=== PATIENT | male | born 1970 | race Two or more races ===

== ENCOUNTER 2019-09-15 10:10 | Emergency (ER) | payer MEDICARE, MEDICAID ==
[~2019-09-15] VITALS: Ht 185.4 cm; Wt 97.5 kg
[2019-09-15 10:41] VITALS: BP 108/70
== END 2019-09-15 12:29 | disposition left against medical advice (07) ==
LOC: ER 10:10
DX: R51 Headache (principal); Z53.21 Procedure and treatment not carried out due to patient leaving prior to being seen by health care provider
CPT/HCPCS: 93005

== ENCOUNTER 2020-01-25 02:01 | Emergency (ER) | payer MEDICARE, MEDICAID ==
[~2020-01-25] VITALS: Ht 185.4 cm; Wt 99.8 kg
[2020-01-25] MEDS ORDERED: LIDOCAINE 1% HCL (LOCAL ANESTH.) INJ 20ML MDV IJ ONE (04:45)
[2020-01-25] MEDS ORDERED: LIDOCAINE 1% HCL (LOCAL ANESTH.) INJ 20ML MDV ID ONE (05:00)
[2020-01-25 06:20] VITALS: BP 150/97
== END 2020-01-25 06:30 | disposition home or self-care (01) ==
LOC: ER 02:01 → EDBD 02:01 → ER 06:30
DX: S01.81XA Laceration without foreign body of other part of head, initial encounter (principal); F10.10 Alcohol abuse, uncomplicated; W01.0XXA Fall on same level from slipping, tripping and stumbling without subsequent striking against object, initial encounter; Y93.89 Activity, other specified; Y92.89 Other specified places as the place of occurrence of the external cause; Y99.8 Other external cause status
CPT/HCPCS: 12053; 70450; 72125; 99285; J2001

== ENCOUNTER 2020-02-08 11:39 | Inpatient (IN) | payer MEDICARE, MEDICAID ==
[~2020-02-08] VITALS: Ht 185.4 cm; Wt 90.4 kg
[2020-02-08] MEDS ORDERED: ETOMIDATE (2MG/ML) 20ML VIAL IV ONE ×3 (15:00→16:00)
[2020-02-08 16:49] LABS: Basophils # (auto) 0 10 ^3/uL (0-0.2); Eosinophils # (auto) 0 10 ^3/uL (0-0.8); Neutrophils # (auto) 4.9 10 ^3/uL (1.6-8.6); White Blood Cell 5.6 10^3/uL (4.4-10.8)
[2020-02-08 16:51] LABS: Basophils % (auto) 0.4 % (0.0-2.0); Hematocrit 37.9 % (41.0-53.0); Hemoglobin 12.6 g/dL (13.5-17.5); Lymphocytes # (auto) 0.2 10 ^3/uL (0.4-5.4); Lymphocytes % (auto) 4.4 % (10.0-50.0); Mean Corpuscular Hemoglobin 34.1 pg (28.0-32.0); Mean Corpuscular Hgb Conc. 33.2 g/dL (32.0-36.0); Mean Corpuscular Volume 102.5 fL (80.0-100.0); Monocytes # (auto) 0.4 10 ^3/uL (0-1.3); Monocytes % (auto) 7.9 % (0.0-12.0); Neutrophils % (auto) 87.3 % (37.0-80.0); Platelet Count (auto) 161 10^3/uL (140-450); Red Cell Distribution Width 15.3 % (11.8-14.3)
[2020-02-08 17:09] LABS: Albumin 3.2 g/dL (3.4-5.0); Calcium 8.5 mg/dL (8.5-10.1); Potassium 3.7 mmol/L (3.5-5.1)
[2020-02-08 17:13] LABS: BUN/Creatinine Ratio 8.6; Bilirubin, Total 0.7 mg/dL (0.2-1.0); Total Protein 7.1 g/dL (6.4-8.2)
[2020-02-08 17:27] LABS: INR 0.91 (0.9-1.15); Partial Thromboplastin Time 26.5 sec (23.64-32.05)
[2020-02-08] MEDS ORDERED: NITROGLYCERIN 0.4 MG SL TAB SL PRN ×3 (18:30→21:00)
[2020-02-08] MEDS ORDERED: MORPHINE SULF INJ 2 MG/ML SYRINGE 1ML IV PRN ×2 (18:30→21:00)
[2020-02-08] MEDS ORDERED: MORPHINE SULFATE 4 MG/ML SYR/VIAL IV ONE (18:45)
[2020-02-08] MEDS ORDERED: ONDANSETRON HCL 4 MG/2 ML VIAL IV ONE (18:45)
[2020-02-08] MEDS ORDERED: LORazepam 2MG/ML-1ML VIAL IV ONE (19:00)
[2020-02-08] MEDS ORDERED: MVI in SODIUM CHLORIDE 0.9% 1,010 ML IV ONE (20:53)
[2020-02-08] MEDS ORDERED: ATORVASTATIN 20 MG TAB PO ONE (21:00)
[2020-02-08] MEDS ORDERED: LORazepam 2MG/ML-1ML VIAL IV PRN (21:00)
[2020-02-08] MEDS ORDERED: DOCUSATE SOD 100 MG CAP PO PRN (21:00)
[2020-02-08] MEDS ORDERED: ALUM & MAG HYDROX-SIMETH LIQ(MAALOX) 30 ML PO PRN (21:00)
[2020-02-08] MEDS ORDERED: ONDANSETRON HCL 4 MG/2 ML VIAL IV PRN (21:00)
[2020-02-08] MEDS ORDERED: THIAMINE HCL 100 MG TAB PO ONE (21:00)
[2020-02-08] MEDS ORDERED: THIAMINE 100mg/ml INJ (200mg/2ml VIAL) IV ONE (21:00)
[2020-02-08] MEDS ORDERED: FOLIC ACID 1 MG TAB PO ONE (21:00)
[2020-02-08] MEDS ORDERED: HYDROcodone-ACET 5/325MG TAB PO PRN (21:00)
[2020-02-08] MEDS ORDERED: MULTIPLE VITAMIN TAB PO ONE (21:00)
[2020-02-08] MEDS ORDERED: ACETAMINOPHEN 325 MG TAB PO PRN ×2 (21:00)
[2020-02-08 21:30] LABS: Magnesium 2.2 mg/dL (1.6-2.6)
--- NOTE | 2020-02-08 21:30 | NUR ---
PATIENT ARRIVED TO UNIT AT THIS TIME FROM THE EMERGENCY ROOM VIA WHEELCHAIR. HE IS AO X4 AND AMBULATORY WITH HIS CANE HE BROUGHT FROM HOME WELL A LEG BRACE. HE IS ON ROOM AIR WITH NO COMPLAINTS OF SHORTNESS OF BREATH. HE DOES COMPLAIN OF MILD PAIN AT A 4/10 AT THE MOMENT TO HIS LEFT SHOULDER, BACK AND RIGHT LEG. BED IS LOCKED IN THE LOWEST POSITION WITH SIDE RAILS UP X2. WILL CONTINUE TO MONITOR.
[2020-02-08 21:35] LABS: Cholesterol 206 mg/dL (< 200); HDL Cholesterol 124 mg/dL (40-59); LDL Cholesterol 68 mg/dL (< 100); Triglycerides 58 mg/dL (< 150)
--- NOTE | 2020-02-08 21:35 | NUR ---
UA SENT AT THIS TIME.
[2020-02-08] MEDS: THIAMINE IV ONE (21:45)
[2020-02-08] MEDS: SODIUM CHL 0.9% IV ONE (21:45)
[2020-02-08 22:00] VITALS: BP 148/99
[2020-02-08] MEDS ORDERED: ATORVASTATIN 20 MG TAB PO SCH (22:00)
[2020-02-08] MEDS ORDERED: QUEtiapine FUMARATE 100 MG TAB PO SCH (22:00)
[2020-02-08] MEDS ORDERED: traZODone HCL 50 MG TAB PO SCH (22:00)
[2020-02-08] MEDS: METOPROLOL TARTRATE 25 MG TAB PO SCH (22:26)
[2020-02-08] MEDS: GABAPENTIN 300 MG CAP PO SCH (22:27)
[2020-02-08] MEDS: LORazepam 0.5 MG TAB PO SCH (22:27)
[2020-02-08] MEDS: MAGNESIUM SULFATE 1GM/100ML 100 ML IV SCH ×2 (22:28→23:50)
[2020-02-08] MEDS: SODIUM CHLOR 0.9% PF (SALINE LOCK) 10ML VIAL/SYR IV SCH (22:28)
[2020-02-08] MEDS: SODIUM CHLORIDE 0.9% 1,000 ML IV SCH (22:29)
[2020-02-08 22:31] LABS: Urine Bacteria NONE SEEN /hpf (None Seen); Urine Blood Negative /uL (Negative); Urine Mucus FEW (None Seen); Urine Specific Gravity 1.019 (1.001-1.035); Urine WBC <1 /hpf (0 - 3)
[2020-02-08 22:46] LABS: Amphetamine Screen, Urine NEGATIVE (NEGATIVE); Barbiturate Scree,Urine NEGATIVE (NEGATIVE); Benzodiazephine Screen, Urine NEGATIVE (NEGATIVE); Cannabinoid Screen, Urine NEGATIVE (NEGATIVE); Cocaine Screen, Urine NEGATIVE (NEGATIVE); Opiate Scree,Urine POSITIVE (NEGATIVE); Phencyclidine Screen, Urine NEGATIVE (NEGATIVE)
[2020-02-08] MEDS: MORPHINE SULF INJ 2 MG/ML SYRINGE 1ML IV PRN (22:50)
--- NOTE | 2020-02-08 23:40 | NUR ---
COVID SWAB TAKEN TO LAB AT THIS TIME.
[2020-02-09] MEDS ORDERED: TRAZ150T79 PO (00:14)
[2020-02-09] MEDS ORDERED: MORP1CAP30 PO (00:14)
[2020-02-09] MEDS ORDERED: GABA-339 PO (00:14)
[2020-02-09] MEDS ORDERED: BACL10TA PO (00:14)
[2020-02-09] MEDS ORDERED: OXY5T PO (00:14)
[2020-02-09] MEDS ORDERED: QUET50TA PO (00:14)
[2020-02-09] MEDS: LORazepam 0.5 MG TAB PO SCH ×3 (01:35→09:00)
[2020-02-09] MEDS: DOXYCYCLINE 100MG/250ML 250 ML IV SCH ×2 (01:35→09:00)
[2020-02-09] MEDS: MORPHINE SULF INJ 2 MG/ML SYRINGE 1ML IV PRN ×3 (03:00→14:26)
[2020-02-09] MEDS: THIAMINE IV ONE (03:50)
[2020-02-09] MEDS: SODIUM CHL 0.9% IV ONE (03:50)
[2020-02-09 05:00] VITALS: BP 140/97
--- NOTE | 2020-02-09 05:16 | NUR ---
PATIENT OFF UNIT TO SMOKE. SIGNED FORM IN CHART. PATIENT NOTIFIED OF 30 MINUTE MAXIMUM LIMIT.
--- NOTE | 2020-02-09 05:24 | NUR ---
PATIENT BACK ON UNIT.
[2020-02-09] MEDS: SODIUM CHLOR 0.9% PF (SALINE LOCK) 10ML VIAL/SYR IV SCH ×2 (05:42→14:25)
[2020-02-09] MEDS: GABAPENTIN 300 MG CAP PO SCH ×2 (05:43→14:25)
[2020-02-09 06:02] LABS: Basophils # (auto) 0 10 ^3/uL (0-0.2); Basophils % (auto) 0.4 % (0.0-2.0); Eosinophils # (auto) 0 10 ^3/uL (0-0.8); Eosinophils % (auto) 0.7 % (0.0-7.0); Lymphocytes # (auto) 0.6 10 ^3/uL (0.4-5.4); Monocytes # (auto) 0.9 10 ^3/uL (0-1.3); Red Cell Distribution Width 15.4 % (11.8-14.3)
[2020-02-09 06:05] LABS: Hematocrit 35.2 % (41.0-53.0); Lymphocytes % (auto) 9.1 % (10.0-50.0); Mean Corpuscular Hemoglobin 34.4 pg (28.0-32.0); Mean Corpuscular Hgb Conc. 34.1 g/dL (32.0-36.0); Mean Corpuscular Volume 100.7 fL (80.0-100.0); Monocytes % (auto) 14.7 % (0.0-12.0); Neutrophils # (auto) 4.7 10 ^3/uL (1.6-8.6); Neutrophils % (auto) 75.1 % (37.0-80.0); Platelet Count (auto) 171 10^3/uL (140-450); Red Blood Cells 3.49 10^6/uL (4.5-5.90); White Blood Cell 6.2 10^3/uL (4.4-10.8)
[2020-02-09 06:16] LABS: INR 0.93 (0.9-1.15); Partial Thromboplastin Time 26.9 sec (23.64-32.05)
[2020-02-09 06:23] LABS: Chloride 101 mmol/L (98-107); Potassium 3.5 mmol/L (3.5-5.1); Sodium 133 mmol/L (136-145)
[2020-02-09 06:40] LABS: Alanine Aminotransferase 67 U/L (16-61); Albumin 3.1 g/dL (3.4-5.0); Alkaline Phosphatase 120 U/L (45-117); Anion Gap 6 (5-15); Aspartate Aminotransferase 100 U/L (15-37); BUN/Creatinine Ratio 14.8; Bilirubin, Total 0.8 mg/dL (0.2-1.0); Blood Urea Nitrogen 8 mg/dL (7-18); Calcium 8.5 mg/dL (8.5-10.1); Carbon Dioxide 26 mmol/L (21-32); GFR African American 206 mL/min; GFR Non-African American 170 mL/min; Glucose 108 mg/dL (74-106); Magnesium 2.6 mg/dL (1.6-2.6); Phosphorus 2.6 mg/dL (2.5-4.90); Total Protein 6.9 g/dL (6.4-8.2)
--- NOTE | 2020-02-09 07:01 | NUR ---
PATIENT OFF UNIT TO SMOKE.
--- NOTE | 2020-02-09 07:30 | NUR ---
Opening Shift Note Assumed care of patient, pt awake and alert laying down in bed. Pt is on room air with even and unlabored respirations. No S/S of distress/SOB at this time. Pt C/o pain 10/10 in back and left arm. Will give ordered pain medications. bed is in lowest position, wheels are locked, side rails up x2, and call light is within reach. Instructed on POC and to call for assist PRN, will continue to monitor for changes Q1hr and PRN.
--- NOTE | 2020-02-09 08:35 | NUR ---
PT OFF UNIT FOR PROCEDURE OT OFF UNIT FOR PROCEDURE. PT TRANSPORTED BY BED TO PRE-OP. PT IS ALERT AND AWAKE WITH EVEN AND UNLABORED RESPIRATIONS. NO S/S OF DISTRESS/SOB NOTED AT TIME OF DEPARTURE.
[2020-02-09 09:00] VITALS: BP 140/95
[2020-02-09] MEDS ORDERED: MIDAZOLAM HCL 1MG/1ML-2 ML VIAL ONE (09:02)
[2020-02-09] MEDS ORDERED: fentaNYL CITRATE 5 ML ONE (09:02)
[2020-02-09] MEDS ORDERED: GLYCOPYRROLATE 0.2 MG/ML 1ML VIAL ONE ×2 (09:03→10:30)
[2020-02-09] MEDS ORDERED: ROCURONIUM 10MG/ML 10ML VIAL IV ONE (09:03)
[2020-02-09] MEDS ORDERED: PROPOFOL 10 MG/ML 20 ML IV ONE (09:03)
[2020-02-09] MEDS ORDERED: ePHEDrine SULFATE 50 MG/ML AMP ONE (09:03)
[2020-02-09] MEDS ORDERED: DexAMETHasone SOD PHOS 10MG/1ML VIAL INJ ONE (09:03)
[2020-02-09] MEDS ORDERED: LIDOCAINE 2% (LOCAL ANESTH.) PF 5ml SDV ONE (09:03)
[2020-02-09] MEDS ORDERED: ONDANSETRON HCL 4 MG/2 ML VIAL ONE (09:03)
[2020-02-09] MEDS ORDERED: ROPIVACAINE 0.5% (5MG/ML) 20ML AMPULE IJ ONE (09:38)
[2020-02-09] MEDS ORDERED: PANTOPRAZOLE 40 MG TAB PO SCH (10:00)
[2020-02-09] MEDS ORDERED: FOLIC ACID 1 MG TAB PO SCH (10:00)
[2020-02-09] MEDS ORDERED: THIAMINE HCL 100 MG TAB PO SCH (10:00)
[2020-02-09] MEDS ORDERED: MULTIPLE VITAMIN TAB PO SCH (10:00)
[2020-02-09] MEDS ORDERED: ENOXAPARIN SOD 40 MG/0.4 ML SYRINGE SC SCH (10:00)
[2020-02-09] MEDS ORDERED: CITALOPRAM HYDROBR 20 MG TAB PO SCH (10:00)
[2020-02-09] MEDS ORDERED: NEOSTIGMINE 1 MG/ML INJ (10mg/10ML VIAL) ONE (10:30)
--- NOTE | 2020-02-09 10:30 | NUR ---
PT BACK TO UNIT PT ARRIVED BACK TO UNIT FROM PROCEDURE. PT IS ALERT AND ORIENTATED BUT REMAINS VERY GROGGY. PT IS EASILY AROUSED BY NAME. PT IS ON ROOM AIR WITH EVEN AND UNLABORED RESPIRATIONS. SLING TO LEFT SHOULD REMAINS IN PLACE. PT EDUCATED TO KEEP SLING ON AT ALL TIMES. PT VERBALIZED UNDERSTANDING. BED IS IN LOWEST POSITION, WHEELS ARE LOCKED, SIDE RAILS UP X2, AND CALL LIGHT IS WITH IN REACH.
[2020-02-09] MEDS ORDERED: ONDANSETRON HCL 4 MG/2 ML VIAL IV PRN (11:15)
[2020-02-09] MEDS ORDERED: HYDROmorphone HCL 2 MG/ML VL IV PRN (11:15)
[2020-02-09] MEDS: METOPROLOL TARTRATE 25 MG TAB PO SCH (12:10)
[2020-02-09] MEDS: SODIUM CHLORIDE 0.9% 1,000 ML IV SCH (12:12)
[2020-02-09 13:00] VITALS: BP 141/97
--- NOTE | 2020-02-09 13:50 | NUR ---
SPOKE WITH DR. VELASCO SPOKE WITH DR. VELASCO. RECEIVED ORDERS TO D/C SCHEDULED ATIVAN AND SWITCH TO LIBRIUM. ALSO TO INCREASE IV FLUIDS. ORDERS CARRIED OUT IN [facility], WILL CONTINUE TO MONITOR Q1H AND PRN.
[2020-02-09] MEDS ORDERED: LORazepam 2MG/ML-1ML VIAL IV PRN (14:15)
[2020-02-09] MEDS ORDERED: SODIUM CHLORIDE 0.9% 1,000 ML IV SCH (14:15)
--- NOTE | 2020-02-09 16:18 | NUR ---
AMA Note JENSEN BACK states they want to leave the hospital Against Medical Advice (AMA). Patient stating he no longer wants to stay and wants to go home to take his own medications. Patient encouraged to stay for further treatment/stabilization. Dr. Gino Beck MD notified of patient's wishes. Patient advised of the risks and benefits of leaving AMA. Patient verbalized understanding. Patient still demanding to leave gainst medical advise. Patient encouraged to return to the ER if symptoms do not improve or worsen.
[2020-02-09] MEDS ORDERED: LORazepam 0.5 MG TAB PO SCH (21:00)
[2020-02-09] MEDS ORDERED: chlordiazePOXIDE HCL 25 MG CAP PO SCH (22:00)
[2020-02-10] MEDS ORDERED: ASPirin 81 mg TAB PO SCH (10:00)
[2020-02-10] MEDS ORDERED: CLOPIDOGREL BISULFATE 75 MG TAB PO SCH (10:00)
[2020-02-10] MEDS ORDERED: LORazepam 0.5 MG TAB PO SCH (22:00)
== END 2020-02-09 16:18 | disposition left against medical advice (07) | DRG 563 ==
LOC: ER 11:39 → TELE 11:40 → TELE-CENTR 21:24
PROVIDERS: ADMIT Hospitalist; ATTEND Family Medicine
PROC: 0RSKXZZ Reposition Left Shoulder Joint, External Approach (ICD-10-PCS; principal; 2020-02-09 09:45)
DX: S43.005A Unspecified dislocation of left shoulder joint, initial encounter (principal); I16.1 Hypertensive emergency; R55 Syncope and collapse; R07.9 Chest pain, unspecified; K29.20 Alcoholic gastritis without bleeding; M47.812 Spondylosis without myelopathy or radiculopathy, cervical region; K70.10 Alcoholic hepatitis without ascites; D63.8 Anemia in other chronic diseases classified elsewhere; G89.29 Other chronic pain; E78.5 Hyperlipidemia, unspecified; F10.229 Alcohol dependence with intoxication, unspecified; F17.200 Nicotine dependence, unspecified, uncomplicated; F20.9 Schizophrenia, unspecified; F31.9 Bipolar disorder, unspecified; M19.90 Unspecified osteoarthritis, unspecified site; F41.9 Anxiety disorder, unspecified; I10 Essential (primary) hypertension; M48.02 Spinal stenosis, cervical region; M75.102 Unspecified rotator cuff tear or rupture of left shoulder, not specified as traumatic; W19.XXXA Unspecified fall, initial encounter; K21.9 Gastro-esophageal reflux disease without esophagitis; M54.5 Low back pain; Z80.3 Family history of malignant neoplasm of breast; Z80.42 Family history of malignant neoplasm of prostate; Z11.59 Encounter for screening for other viral diseases
CPT/HCPCS: 36415; 70450; 71045; 73020; 73030; 76000; 80053; 80061; 80307; 81001; 83036; 83735; 84100; 84484; 85025; 85610; 85730; 86850; 86900; 86901; 87040; 87086; 93005; 93306; G0378; J1100; J2001; J2250; J2405; J2704; J3490

== ENCOUNTER 2020-02-28 11:04 | Emergency (ER) | payer MEDICARE, MEDICAID ==
[~2020-02-28] VITALS: Ht 185.4 cm; Wt 99.8 kg
[~2020-02-28 11:04] MED LIST: BACL10TA PO; GABA-339 PO; MORP1CAP30 PO; OXY5T PO; QUET50TA PO; TRAZ150T79 PO
[2020-02-28 12:33] VITALS: BP 108/81
[2020-02-28] MEDS ORDERED: OXYCODONE W/ ACETAMINOPHEN 5/325MG TABLET PO ONE (13:00)
== END 2020-02-28 14:52 | disposition home or self-care (01) ==
LOC: ER 11:04
DX: S42.292A Other displaced fracture of upper end of left humerus, initial encounter for closed fracture (principal); M75.92 Shoulder lesion, unspecified, left shoulder; K21.9 Gastro-esophageal reflux disease without esophagitis; X58.XXXA Exposure to other specified factors, initial encounter; Y93.89 Activity, other specified; Y92.89 Other specified places as the place of occurrence of the external cause; Y99.8 Other external cause status
CPT/HCPCS: 73030; 73200

== ENCOUNTER → 2020-10-12 | Outpatient (CLI) | payer MEDICARE, MEDICAID ==
[~2020-10-12] MED LIST changes: +CITA40TA12 PO; +DULO60CA PO; +LORA0.5T20 PO; +MORP15TA PO; +QUET300T14 PO; -TRAZ150T79 PO; +TRAZ1TAB12 PO
== END | disposition home or self-care (01) ==
LOC: LAB 10:41
PROVIDERS: ATTEND Internal Medicine Gastroenterology
DX: Z01.812 Encounter for preprocedural laboratory examination (principal); K74.60 Unspecified cirrhosis of liver
CPT/HCPCS: 82105; 82140; 82728

== ENCOUNTER → 2020-10-17 | Day surgery (SDC) | payer MEDICARE, MEDICAID ==
[2020-10-12 11:05] LABS: Basophils # (auto) 0.1 10 ^3/uL (0-0.2); Eosinophils # (auto) 0.1 10 ^3/uL (0-0.8); Hemoglobin 12.6 g/dL (13.5-17.5); Lymphocytes # (auto) 1.2 10 ^3/uL (0.4-5.4); Nucleated Red Blood Cells % 0.1 %
[2020-10-12 11:07] LABS: Basophils % (auto) 1.7 % (0.0-2.0); Eosinophils % (auto) 3.6 % (0.0-7.0); Hematocrit 37.3 % (41.0-53.0); Lymphocytes % (auto) 31.7 % (10.0-50.0); Mean Corpuscular Hemoglobin 35.7 pg (28.0-32.0); Mean Corpuscular Hgb Conc. 33.8 g/dL (32.0-36.0); Mean Corpuscular Volume 105.4 fL (80.0-100.0); Monocytes # (auto) 0.5 10 ^3/uL (0-1.3); Monocytes % (auto) 11.7 % (0.0-12.0); Neutrophils % (auto) 51.3 % (37.0-80.0); Platelet Count (auto) 219 10^3/uL (140-450); Red Blood Cells 3.54 10^6/uL (4.5-5.90); Red Cell Distribution Width 14.8 % (11.8-14.3); White Blood Cell 3.9 10^3/uL (4.4-10.8)
[2020-10-12 11:19] LABS: INR 0.96 (0.9-1.15)
[2020-10-12 11:37] LABS: Albumin 2.8 g/dL (3.4-5.0); Calcium 8.5 mg/dL (8.5-10.1); Potassium 3.9 mmol/L (3.5-5.1)
[2020-10-12 11:40] LABS: BUN/Creatinine Ratio 8.7; Bilirubin, Total 0.3 mg/dL (0.2-1.0); Total Protein 6.8 g/dL (6.4-8.2)
[~2020-10-17] VITALS: Ht 185.4 cm; Wt 97.5 kg
[~2020-10-17] MED LIST changes: +BACITRACIN INJ 50000 UNIT VIAL ONE; -BACL10TA PO; +BUPIVACAINE 0.25% INJ 50ML VIAL ONE; -GABA-339 PO; +GLYCOPYRROLATE 0.2 MG/ML 1ML VIAL ONE; +HYDROmorphone HCL 2 MG/ML VL IV PRN; +KETOROLAC TROMETH 30 MG/ML 1ML VIAL ONE; +LIDOCAINE 1% (LOCAL ANESTH.) PF 5ml SDV ONE; +MIDAZOLAM HCL 1MG/1ML-2 ML VIAL ONE; -MORP1CAP30 PO; +NEOSTIGMINE 1 MG/ML INJ (10mg/10ML VIAL) ONE; +ONDANSETRON HCL 4 MG/2 ML VIAL IV ONE; +ONDANSETRON HCL 4 MG/2 ML VIAL IV PRN; +PROPOFOL 10 MG/ML 20 ML IV ONE; -QUET50TA PO; +ROCURONIUM 10MG/ML 10ML VIAL IV ONE; +ROPIVACAINE 0.5% (5MG/ML) 20ML AMPULE IJ ONE; +SUCCINYLCHOLINE CHLORIDE 20 MG/ML 10ML VIAL IV ONE; +TRANEXAMIC ACID 20 ML ONE; +VANCOMYCIN HCL 1000 MG VL ONE; +ceFAZolin 1GM/50ML 100 ML IV ONE; +ePHEDrine SULFATE 50 MG/ML AMP IV ONE; +fentaNYL CITRATE 5 ML ONE
[2020-10-17 12:05] VITALS: BP 123/68
[2020-10-17 12:35] LABS: Hematocrit 36.5 % (41.0-53.0); Hemoglobin 12.7 g/dL (13.5-17.5)
== END | disposition home or self-care (01) ==
LOC: SUR 06:01
PROVIDERS: ATTEND Orthopaedic Surgery Sports Medicine
DX: M25.312 Other instability, left shoulder (principal); F31.89 Other bipolar disorder; F99 Mental disorder, not otherwise specified; F17.200 Nicotine dependence, unspecified, uncomplicated; M79.89 Other specified soft tissue disorders; Z20.822 Contact with and (suspected) exposure to COVID-19; Z98.890 Other specified postprocedural states; Z79.899 Other long term (current) drug therapy; Z98.84 Bariatric surgery status; Z80.42 Family history of malignant neoplasm of prostate
CPT/HCPCS: 23460; 36415; 73020; 80053; 85014; 85018; 85025; 85610; 86850; 86900; 86901; C1713; C1769; J0330; J0690; J1885; J2250; J2270; J2405; J2704; J2795; J3010; J3370; J3490; U0003; A4565

== ENCOUNTER 2021-03-20 06:16 | Day surgery (SDC) | payer MEDICARE, MEDICAID ==
[2021-03-15 15:33] LABS: Basophils # (auto) 0 10 ^3/uL (0-0.2); Eosinophils # (auto) 0.1 10 ^3/uL (0-0.8); Eosinophils % (auto) 1.6 % (0.0-7.0); Hemoglobin 11.7 g/dL (13.5-17.5); Lymphocytes # (auto) 0.9 10 ^3/uL (0.4-5.4); White Blood Cell 4.3 10^3/uL (4.4-10.8)
[2021-03-15 15:35] LABS: Basophils % (auto) 0.7 % (0.0-2.0); Hematocrit 34.2 % (41.0-53.0); Lymphocytes % (auto) 21.8 % (10.0-50.0); Mean Corpuscular Hemoglobin 37.5 pg (28.0-32.0); Mean Corpuscular Hgb Conc. 34.2 g/dL (32.0-36.0); Mean Corpuscular Volume 109.7 fL (80.0-100.0); Monocytes # (auto) 0.3 10 ^3/uL (0-1.3); Monocytes % (auto) 8.1 % (0.0-12.0); Neutrophils # (auto) 2.9 10 ^3/uL (1.6-8.6); Neutrophils % (auto) 67.8 % (37.0-80.0); Red Blood Cells 3.12 10^6/uL (4.5-5.90); Red Cell Distribution Width 14.2 % (11.8-14.3)
[2021-03-15 15:42] LABS: Urine Bacteria NONE SEEN /hpf (None Seen); Urine Blood Negative /uL (Negative); Urine Hyaline Cast FEW /lpf (0 - 2); Urine Specific Gravity 1.025 (1.001-1.035); Urine WBC 1 /hpf (0 - 3)
[2021-03-15 16:05] LABS: Alanine Aminotransferase 48 U/L (16-61); Alkaline Phosphatase 156 U/L (45-117); Anion Gap 7 (5-15); Aspartate Aminotransferase 66 U/L (15-37); Blood Urea Nitrogen 13 mg/dL (7-18); Calcium 7.7 mg/dL (8.5-10.1); Carbon Dioxide 27 mmol/L (21-32); Chloride 103 mmol/L (98-107); GFR African American 224 mL/min; GFR Non-African American 185 mL/min; Glucose 87 mg/dL (74-106); Potassium 3.8 mmol/L (3.5-5.1); Sodium 137 mmol/L (136-145)
[2021-03-15 16:06] LABS: Albumin 2.5 g/dL (3.4-5.0); Bilirubin, Total 0.3 mg/dL (0.2-1.0); Total Protein 6.2 g/dL (6.4-8.2)
[~2021-03-20] VITALS: Ht 185.4 cm; Wt 96.6 kg
[~2021-03-20 06:16] MED LIST changes: -BACITRACIN INJ 50000 UNIT VIAL ONE; -BUPIVACAINE 0.25% INJ 50ML VIAL ONE; -GLYCOPYRROLATE 0.2 MG/ML 1ML VIAL ONE; -HYDROmorphone HCL 2 MG/ML VL IV PRN; -KETOROLAC TROMETH 30 MG/ML 1ML VIAL ONE; -LIDOCAINE 1% (LOCAL ANESTH.) PF 5ml SDV ONE; -MIDAZOLAM HCL 1MG/1ML-2 ML VIAL ONE; -NEOSTIGMINE 1 MG/ML INJ (10mg/10ML VIAL) ONE; -ONDANSETRON HCL 4 MG/2 ML VIAL IV ONE; -ONDANSETRON HCL 4 MG/2 ML VIAL IV PRN; -PROPOFOL 10 MG/ML 20 ML IV ONE; -ROCURONIUM 10MG/ML 10ML VIAL IV ONE; -ROPIVACAINE 0.5% (5MG/ML) 20ML AMPULE IJ ONE; -SUCCINYLCHOLINE CHLORIDE 20 MG/ML 10ML VIAL IV ONE; -TRANEXAMIC ACID 20 ML ONE; -VANCOMYCIN HCL 1000 MG VL ONE; -ceFAZolin 1GM/50ML 100 ML IV ONE; -ePHEDrine SULFATE 50 MG/ML AMP IV ONE; -fentaNYL CITRATE 5 ML ONE
[2021-03-20] MEDS ORDERED: ceFAZolin 1GM/50ML 100 ML IV ONE (06:39)
[2021-03-20] MEDS ORDERED: LIDOCAINE 1% HCL (LOCAL ANESTH.) INJ 20ML MDV ONE (06:59)
[2021-03-20] MEDS ORDERED: SUCCINYLCHOLINE CHLORIDE 20 MG/ML 10ML VIAL IV ONE (06:59)
[2021-03-20] MEDS ORDERED: DOXAPRAM HCL 20 MG/ML 20ML VIAL INJ IV ONE (06:59)
[2021-03-20] MEDS ORDERED: HYDROmorphone HCL 2 MG/ML VL ONE (07:09)
[2021-03-20] MEDS ORDERED: fentaNYL CITRATE 5 ML ONE ×2 (07:09→08:57)
[2021-03-20] MEDS ORDERED: MIDAZOLAM HCL 2MG/2ML 2ml VIAL (1mg/ml) ONE (07:09)
[2021-03-20] MEDS ORDERED: fentaNYL CITRATE 100 MCG/2 ML VL ONE (07:09)
[2021-03-20] MEDS ORDERED: PROPOFOL 10 MG/ML 20 ML IV ONE (07:10)
[2021-03-20] MEDS ORDERED: ROCURONIUM 10MG/ML 10ML VIAL IV ONE (07:10)
[2021-03-20] MEDS ORDERED: SODIUM CHLORIDE LOCK 10 ML ONE (07:10)
[2021-03-20] MEDS ORDERED: ONDANSETRON HCL 4 MG/2 ML VIAL ONE (07:10)
[2021-03-20] MEDS ORDERED: BUPIVACAINE 0.5% MPF INJ 30ML SDV IJ ONE (07:16)
[2021-03-20] MEDS ORDERED: EPINEPHrine HCL 1 MG/1 ML AMP ONE ×2 (07:16→09:28)
[2021-03-20] MEDS ORDERED: TRANEXAMIC ACID 20 ML ONE (07:28)
[2021-03-20] MEDS ORDERED: NEOSTIGMINE 1 MG/ML INJ (10mg/10ML VIAL) ONE (08:37)
[2021-03-20] MEDS ORDERED: GLYCOPYRROLATE 0.2 MG/ML 1ML VIAL ONE (08:37)
[2021-03-20] MEDS ORDERED: HYDROmorphone HCL 2 MG/ML VL IV PRN (09:00)
[2021-03-20] MEDS ORDERED: MORPHINE SULFATE 4 MG/ML SYR/VIAL IV PRN (09:00)
[2021-03-20] MEDS ORDERED: BUPIVACAINE W/ EPINEPH 0.5% MPF 30ML VIAL IJ ONE (13:41)
[2021-03-20] MEDS ORDERED: LIDOCAINE 1% (LOCAL ANESTH.) PF 5ml SDV ONE (13:42)
[2021-03-20 14:10] VITALS: BP 139/89
== END 2021-03-20 14:15 | disposition home or self-care (01) ==
LOC: SUR 06:16
PROVIDERS: ATTEND Orthopaedic Surgery Sports Medicine
DX: T84.84XA Pain due to internal orthopedic prosthetic devices, implants and grafts, initial encounter (principal); S43.002A Unspecified subluxation of left shoulder joint, initial encounter; M94.212 Chondromalacia, left shoulder; I10 Essential (primary) hypertension; F41.9 Anxiety disorder, unspecified; G89.29 Other chronic pain; F10.10 Alcohol abuse, uncomplicated; F33.3 Major depressive disorder, recurrent, severe with psychotic symptoms; Z98.890 Other specified postprocedural states; Z79.899 Other long term (current) drug therapy; Z20.822 Contact with and (suspected) exposure to COVID-19; X58.XXXA Exposure to other specified factors, initial encounter; Y93.89 Activity, other specified; Y92.89 Other specified places as the place of occurrence of the external cause; Y99.8 Other external cause status; Y82.8 Other medical devices associated with adverse incidents
CPT/HCPCS: 20680; 23466; 29822; 36415; 73020; 76000; 80053; 81001; 85025; 86850; 86900; 86901; C1713; C1781; J0171; J0330; J0690; J1170; J2001; J2250; J2405; J2704; J3010; J3490; U0003; 76001; A4565

== ENCOUNTER 2021-07-26 09:53 | Emergency (ER) | payer MEDICARE, MEDICAID ==
[~2021-07-26] VITALS: Ht 185.4 cm; Wt 93.0 kg
[2021-07-26 10:05] VITALS: BP 121/67
[2021-07-26 10:47] LABS: Basophils # (auto) 0 10 ^3/uL (0-0.2); Eosinophils # (auto) 0.1 10 ^3/uL (0-0.8); Hemoglobin 11.3 g/dL (13.5-17.5); Lymphocytes # (auto) 0.7 10 ^3/uL (0.4-5.4); Mean Corpuscular Volume 108.8 fL (80.0-100.0); Monocytes # (auto) 0.4 10 ^3/uL (0-1.3); Monocytes % (auto) 13.1 % (0.0-12.0); Neutrophils # (auto) 1.9 10 ^3/uL (1.6-8.6)
[2021-07-26 10:49] LABS: Basophils % (auto) 0.9 % (0.0-2.0); Eosinophils % (auto) 2.1 % (0.0-7.0); Hematocrit 33.1 % (41.0-53.0); Lymphocytes % (auto) 23.3 % (10.0-50.0); Mean Corpuscular Hemoglobin 37.2 pg (28.0-32.0); Mean Corpuscular Hgb Conc. 34.2 g/dL (32.0-36.0); Neutrophils % (auto) 60.6 % (37.0-80.0); Nucleated Red Blood Cells % 0.2 %; Red Blood Cells 3.04 10^6/uL (4.5-5.90); Red Cell Distribution Width 14.9 % (11.8-14.3); White Blood Cell 3.2 10^3/uL (4.4-10.8)
[2021-07-26 11:08] LABS: Albumin 2.3 g/dL (3.4-5.0); Calcium 7.5 mg/dL (8.5-10.1); Potassium 3.7 mmol/L (3.5-5.1)
[2021-07-26 11:11] LABS: BUN/Creatinine Ratio 16.4; Total Protein 5.9 g/dL (6.4-8.2)
[2021-07-26 11:25] LABS: Urine Bacteria NONE SEEN /hpf (None Seen); Urine Blood Negative /uL (Negative); Urine Mucus FEW (None Seen); Urine Specific Gravity 1.023 (1.001-1.035); Urine WBC 2 /hpf (0 - 3)
[2021-07-26] MEDS ORDERED: FERR-20 PO (13:14)
== END 2021-07-26 13:24 | disposition home or self-care (01) ==
LOC: ER 09:53
DX: F41.9 Anxiety disorder, unspecified (principal); K21.9 Gastro-esophageal reflux disease without esophagitis; Z79.899 Other long term (current) drug therapy
CPT/HCPCS: 36415; 80053; 81001; 83880; 85025; 86850; 86900; 86901

== ENCOUNTER 2021-10-02 12:06 | Inpatient (IN) | payer MEDICARE, MEDICAID ==
[~2021-10-02] VITALS: Ht 172.7 cm; Wt 78.8 kg
[~2021-10-02 12:06] MED LIST changes: +FERR-20 PO
[2021-10-02] MEDS ORDERED: SODIUM CHLORIDE 0.9% 500 ML IVB ONE (12:30)
[2021-10-02 14:28] LABS: Hemoglobin 12.9 g/dL (13.5-17.5); Mean Corpuscular Hemoglobin 37.1 pg (28.0-32.0); Mean Corpuscular Hgb Conc. 34.1 g/dL (32.0-36.0); Mean Corpuscular Volume 108.9 fL (80.0-100.0); Red Blood Cells 3.49 10^6/uL (4.5-5.90); Red Cell Distribution Width 13.6 % (11.8-14.3); White Blood Cell 2.3 10^3/uL (4.4-10.8)
[2021-10-02 14:29] LABS: Anion Gap 7 (5-15); Blood Alcohol < 3.0 mg/dL (0-5); Blood Urea Nitrogen 21 mg/dL (7-18); Calcium 7.8 mg/dL (8.5-10.1); Carbon Dioxide 24 mmol/L (21-32); Chloride 99 mmol/L (98-107); Glucose 112 mg/dL (74-106); Magnesium 2.6 mg/dL (1.6-2.6); Sodium 130 mmol/L (136-145)
[2021-10-02 14:41] LABS: Alanine Aminotransferase 95 U/L (16-61); Alkaline Phosphatase 198 U/L (45-117); Aspartate Aminotransferase 109 U/L (15-37); Bilirubin, Total 2.9 mg/dL (0.2-1.0); GFR African American 125 mL/min; GFR Non-African American 103 mL/min; Total Protein 6.2 g/dL (6.4-8.2)
[2021-10-02 14:44] LABS: Basophils % (manual) 0 (0.0-2.0); Blast Cells 0; Eosinophils % (manual) 0 (0-7); Metamyelocytes % 0; Myelocytes % 0; Promyelocytes % 0; Reactive Lymphocytes 0
[2021-10-02 14:48] LABS: BUN/Creatinine Ratio 25.3
[2021-10-02 14:51] LABS: Potassium 2.7 mmol/L (3.5-5.1)
[2021-10-02 14:59] LABS: INR 0.95 (0.9-1.15); Partial Thromboplastin Time 28.9 sec (23.6-33.0)
[2021-10-02] MEDS ORDERED: ONDANSETRON HCL 4 MG/2 ML VIAL IV ONE (15:15)
[2021-10-02] MEDS ORDERED: MORPHINE SULFATE INJECTION 2 MG/ML SYRG IV ONE (15:15)
[2021-10-02] MEDS ORDERED: POTASSIUM CHL 20 Meq TABLET PO ONE (15:30)
[2021-10-02 16:03] LABS: Band Neutrophils % (manual) 1; Lymphocytes % (manual) 4 (10.0-50.0); Monocytes % (manual) 9 (0-12)
[2021-10-02] MEDS ORDERED: MORPHINE SULFATE INJECTION 2 MG/ML SYRG IV PRN (16:45)
[2021-10-02] MEDS ORDERED: NITROGLYCERIN 0.4 MG SL TAB SL PRN (16:45)
[2021-10-02] MEDS ORDERED: FOLIC ACID 1 MG, MULTIPLE VITAMIN 10 ML, MAGNESIUM SULF SDV 50% 8 MEQ, THIAMINE INJ 100... INJ SCH ×5 (17:30)
[2021-10-02] MEDS ORDERED: LORazepam 2MG/ML-1ML VIAL IV PRN (17:30)
[2021-10-02] MEDS: POTASSIUM CHL 10MEQ/50ML 50 ML IV SCH ×2 (17:51→20:28)
[2021-10-02 18:35] LABS: Blood Alcohol < 3.0 mg/dL (0-5)
[2021-10-02] MEDS ORDERED: FOLIC ACID 1 MG, MULTIPLE VITAMIN 10 ML, MAGNESIUM SULF SDV 50% 8 MEQ, THIAMINE INJ 100... INJ ONE ×5 (19:45)
[2021-10-02] MEDS ORDERED: ACETAMINOPHEN 325 MG TAB PO PRN ×2 (20:00→21:15)
[2021-10-02 20:04] LABS: BUN/Creatinine Ratio 23.4; Calcium 7.8 mg/dL (8.5-10.1); Potassium 3.2 mmol/L (3.5-5.1)
[2021-10-02 20:57] LABS: Urine Amorphous Crystal FEW /hpf (None Seen); Urine Bacteria FEW /hpf (None Seen); Urine Blood TRACE /uL (Negative); Urine Hyaline Cast FEW /lpf (0 - 2); Urine Mucus FEW (None Seen); Urine Specific Gravity 1.023 (1.001-1.035); Urine WBC 1 /hpf (0 - 3)
[2021-10-02 21:31] LABS: Alcohol, Urine < 3.0 mg/dL (0-10); Amphetamine Screen, Urine NEGATIVE (NEGATIVE); Barbiturate Scree,Urine NEGATIVE (NEGATIVE); Benzodiazephine Screen, Urine NEGATIVE (NEGATIVE); Cannabinoid Screen, Urine NEGATIVE (NEGATIVE); Cocaine Screen, Urine NEGATIVE (NEGATIVE); Opiate Scree,Urine NEGATIVE (NEGATIVE); Phencyclidine Screen, Urine NEGATIVE (NEGATIVE)
[2021-10-02] MEDS ORDERED: CEFEPIME 1 GM in SODIUM CHL 0.9% 50 ML IV SCH (22:00)
[2021-10-02] MEDS ORDERED: SODIUM CHLORIDE 0.9% 1,000 ML IV ONE (22:30)
[2021-10-02] MEDS ORDERED: NOREPINEPHRINE 8 MG/250ML KIT 250 ML IV ONE (23:15)
[2021-10-02] MEDS: NOREPINEPHRINE 8 MG/250ML KIT 250 ML IV SCH ×2 (23:25→23:41)
[2021-10-03] VITALS (71 sets, daily range): BP systolic 84–129; BP diastolic 54–101
[2021-10-03] MEDS ORDERED: PIPERACILLIN-TAZOB 3.375GM 100 ML IV SCH ×2 (02:30→11:00)
[2021-10-03] MEDS: FOLIC ACID 1 MG TAB PO SCH (08:57)
[2021-10-03] MEDS: MULTIPLE VITAMIN TAB PO SCH (08:58)
[2021-10-03] MEDS: THIAMINE HCL 100 MG TAB PO SCH (08:58)
[2021-10-03 10:22] LABS: Albumin 1.5 g/dL (3.4-5.0); Calcium 7.3 mg/dL (8.5-10.1); Potassium 3.1 mmol/L (3.5-5.1)
[2021-10-03 10:26] LABS: BUN/Creatinine Ratio 22.2; Bilirubin, Total 3.8 mg/dL (0.2-1.0)
[2021-10-03 10:38] LABS: Basophils # (auto) 0 10 ^3/uL (0-0.2); Basophils % (auto) 0.2 % (0.0-2.0); Eosinophils # (auto) 0 10 ^3/uL (0-0.8); Eosinophils % (auto) 0.1 % (0.0-7.0); Hemoglobin 12.3 g/dL (13.5-17.5); Lymphocytes # (auto) 0.2 10 ^3/uL (0.4-5.4)
[2021-10-03 10:43] LABS: Lymphocytes % (auto) 3.3 % (10.0-50.0); Mean Corpuscular Hemoglobin 37.4 pg (28.0-32.0); Mean Corpuscular Hgb Conc. 34.1 g/dL (32.0-36.0); Mean Corpuscular Volume 109.6 fL (80.0-100.0); Monocytes # (auto) 0.6 10 ^3/uL (0-1.3); Monocytes % (auto) 12.4 % (0.0-12.0); Neutrophils # (auto) 3.9 10 ^3/uL (1.6-8.6); Red Blood Cells 3.29 10^6/uL (4.5-5.90); White Blood Cell 4.6 10^3/uL (4.4-10.8)
[2021-10-03] MEDS ORDERED: cefTRIAXone 1GM/50ML D5W 50 ML IV ONE (13:15)
[2021-10-03] MEDS: ALBUMIN 25% 100 ML IV SCH ×2 (13:55→21:00)
[2021-10-03] MEDS ORDERED: TRAZ-184 PO (14:09)
[2021-10-03] MEDS ORDERED: QUET50TA PO (14:10)
[2021-10-03] MEDS ORDERED: traZODone HCL 50 MG TAB PO PRN (14:15)
[2021-10-03] MEDS ORDERED: POTASSIUM EFFERVESENT TAB 25 MEQ PO ONE (14:30)
[2021-10-03] MEDS: oxyCODONE HCL 5MG TAB PO PRN (15:40)
[2021-10-03] MEDS: QUEtiapine FUMARATE 100 MG TAB PO SCH (21:30)
[2021-10-04] VITALS (35 sets, daily range): BP systolic 91–117; BP diastolic 66–83
[2021-10-04 04:24] LABS: Potassium 3.3 mmol/L (3.5-5.1)
[2021-10-04 04:28] LABS: Albumin 2.1 g/dL (3.4-5.0); BUN/Creatinine Ratio 32.6
[2021-10-04 04:30] LABS: Basophils # (auto) 0 10 ^3/uL (0-0.2); Bilirubin, Total 2.1 mg/dL (0.2-1.0); Eosinophils # (auto) 0 10 ^3/uL (0-0.8); Hemoglobin 11.3 g/dL (13.5-17.5); Lymphocytes # (auto) 0.2 10 ^3/uL (0.4-5.4); Monocytes # (auto) 0.7 10 ^3/uL (0-1.3); White Blood Cell 4.2 10^3/uL (4.4-10.8)
[2021-10-04 04:32] LABS: Basophils % (auto) 0.1 % (0.0-2.0); Eosinophils % (auto) 0.8 % (0.0-7.0); Hematocrit 33.2 % (41.0-53.0); Lymphocytes % (auto) 5.7 % (10.0-50.0); Mean Corpuscular Hemoglobin 37.8 pg (28.0-32.0); Mean Corpuscular Hgb Conc. 34.2 g/dL (32.0-36.0); Mean Corpuscular Volume 110.3 fL (80.0-100.0); Monocytes % (auto) 16.4 % (0.0-12.0); Neutrophils # (auto) 3.2 10 ^3/uL (1.6-8.6); Red Cell Distribution Width 13.7 % (11.8-14.3)
[2021-10-04] MEDS: ALBUMIN 25% 100 ML IV SCH (05:14)
[2021-10-04] MEDS: cefTRIAXone 1GM/50ML D5W 50 ML IV SCH (07:52)
[2021-10-04] MEDS: oxyCODONE HCL 5MG TAB PO PRN ×3 (07:52→18:50)
[2021-10-04] MEDS: DULoxetine HCL 30 MG CAP PO SCH (09:43)
[2021-10-04] MEDS: POTASSIUM CHL 20 Meq TABLET PO SCH ×2 (09:43→22:11)
[2021-10-04] MEDS: THIAMINE HCL 100 MG TAB PO SCH (09:43)
[2021-10-04] MEDS: MULTIPLE VITAMIN TAB PO SCH (09:44)
[2021-10-04] MEDS: CITALOPRAM HYDROBR 20 MG TAB PO SCH (09:44)
[2021-10-04] MEDS: FOLIC ACID 1 MG TAB PO SCH (09:45)
[2021-10-04] MEDS: QUEtiapine FUMARATE 100 MG TAB PO SCH (22:12)
[2021-10-05] MEDS: oxyCODONE HCL 5MG TAB PO PRN ×3 (04:16→22:22)
[2021-10-05] MEDS ORDERED: INFLUENZA QUAD 2021-2022 0.5 ML SYRG IM ONE (04:30)
[2021-10-05] MEDS ORDERED: PNEUMOCOCCAL VACC POLYS 25 MCG/0.5 ML VIAL IM ONE ×2 (04:30→07:00)
[2021-10-05 05:00] VITALS: BP 116/79
[2021-10-05 06:41] LABS: Basophils # (auto) 0 10 ^3/uL (0-0.2); Basophils % (auto) 0.4 % (0.0-2.0); Eosinophils # (auto) 0 10 ^3/uL (0-0.8); Eosinophils % (auto) 0.7 % (0.0-7.0); Hemoglobin 10.8 g/dL (13.5-17.5); Lymphocytes # (auto) 0.4 10 ^3/uL (0.4-5.4); Monocytes # (auto) 0.5 10 ^3/uL (0-1.3); Neutrophils # (auto) 2.6 10 ^3/uL (1.6-8.6); Neutrophils % (auto) 74.3 % (37.0-80.0); White Blood Cell 3.5 10^3/uL (4.4-10.8)
[2021-10-05 06:43] LABS: Hematocrit 31.2 % (41.0-53.0); Mean Corpuscular Hemoglobin 37.2 pg (28.0-32.0); Mean Corpuscular Hgb Conc. 34.5 g/dL (32.0-36.0); Monocytes % (auto) 13.6 % (0.0-12.0); Red Blood Cells 2.89 10^6/uL (4.5-5.90)
[2021-10-05 07:02] LABS: Potassium 4.2 mmol/L (3.5-5.1)
[2021-10-05 07:07] LABS: Albumin 2.2 g/dL (3.4-5.0); BUN/Creatinine Ratio 42.4; Calcium 8.2 mg/dL (8.5-10.1)
[2021-10-05 07:09] LABS: Bilirubin, Total 1.6 mg/dL (0.2-1.0)
[2021-10-05 09:00] VITALS: BP 117/83
[2021-10-05] MEDS ORDERED: chlordiazePOXIDE HCL 25 MG CAP PO PRN (10:45)
[2021-10-05] MEDS: cefTRIAXone 1GM/50ML D5W 50 ML IV SCH (10:50)
[2021-10-05] MEDS: THIAMINE HCL 100 MG TAB PO SCH (10:50)
[2021-10-05] MEDS: FOLIC ACID 1 MG TAB PO SCH (10:50)
[2021-10-05] MEDS: CITALOPRAM HYDROBR 20 MG TAB PO SCH (10:58)
[2021-10-05] MEDS: DULoxetine HCL 30 MG CAP PO SCH (10:58)
[2021-10-05] MEDS: POTASSIUM CHL 20 Meq TABLET PO SCH ×2 (10:59→22:19)
[2021-10-05] MEDS: MULTIPLE VITAMIN TAB PO SCH (10:59)
[2021-10-05 13:00] VITALS: BP 134/91
[2021-10-05 17:00] VITALS: BP 129/89
[2021-10-05] MEDS: QUEtiapine FUMARATE 100 MG TAB PO SCH (22:19)
[2021-10-06 05:00] VITALS: BP 131/96
[2021-10-06 05:41] LABS: Basophils # (auto) 0 10 ^3/uL (0-0.2); Eosinophils # (auto) 0 10 ^3/uL (0-0.8); Hematocrit 32.9 % (41.0-53.0); Lymphocytes # (auto) 0.6 10 ^3/uL (0.4-5.4); Lymphocytes % (auto) 16.8 % (10.0-50.0); Monocytes # (auto) 0.5 10 ^3/uL (0-1.3); Neutrophils # (auto) 2.5 10 ^3/uL (1.6-8.6)
[2021-10-06 05:49] LABS: Basophils % (auto) 0.8 % (0.0-2.0); Eosinophils % (auto) 1.1 % (0.0-7.0); Hemoglobin 11.2 g/dL (13.5-17.5); Mean Corpuscular Hemoglobin 37.2 pg (28.0-32.0); Mean Corpuscular Hgb Conc. 34.2 g/dL (32.0-36.0); Monocytes % (auto) 14.2 % (0.0-12.0); Neutrophils % (auto) 67.1 % (37.0-80.0); Nucleated Red Blood Cells % 0.1 %; Red Blood Cells 3.01 10^6/uL (4.5-5.90); White Blood Cell 3.7 10^3/uL (4.4-10.8)
[2021-10-06 06:12] LABS: Albumin 2.6 g/dL (3.4-5.0); Calcium 8.2 mg/dL (8.5-10.1); Potassium 4.3 mmol/L (3.5-5.1)
[2021-10-06 06:17] LABS: BUN/Creatinine Ratio 24.3; Bilirubin, Total 1.7 mg/dL (0.2-1.0); Total Protein 5.8 g/dL (6.4-8.2)
[2021-10-06 09:00] VITALS: BP 133/95
[2021-10-06] MEDS: cefTRIAXone 1GM/50ML D5W 50 ML IV SCH (09:10)
[2021-10-06] MEDS: THIAMINE HCL 100 MG TAB PO SCH (09:11)
[2021-10-06] MEDS: POTASSIUM CHL 20 Meq TABLET PO SCH ×2 (09:11→22:00)
[2021-10-06] MEDS: FOLIC ACID 1 MG TAB PO SCH (09:11)
[2021-10-06] MEDS: CITALOPRAM HYDROBR 20 MG TAB PO SCH (09:11)
[2021-10-06] MEDS: DULoxetine HCL 30 MG CAP PO SCH (09:11)
[2021-10-06] MEDS: MULTIPLE VITAMIN TAB PO SCH (09:11)
[2021-10-06] MEDS: oxyCODONE HCL 5MG TAB PO PRN ×2 (10:35→14:47)
[2021-10-06] MEDS: FOLIC ACID 1 MG, MULTIPLE VITAMIN 10 ML, MAGNESIUM SULF SDV 50% 8 MEQ, THIAMINE INJ 100... INJ SCH ×5 (12:00)
[2021-10-06 13:00] VITALS: BP 129/93
[2021-10-06 17:00] VITALS: BP 127/95
[2021-10-06 22:00] VITALS: BP 135/98
[2021-10-06] MEDS: QUEtiapine FUMARATE 100 MG TAB PO SCH (22:00)
[2021-10-07 05:00] VITALS: BP 148/103
[2021-10-07] MEDS: cefTRIAXone 1GM/50ML D5W 50 ML IV SCH (08:11)
[2021-10-07] MEDS: DULoxetine HCL 30 MG CAP PO SCH (08:12)
[2021-10-07] MEDS: oxyCODONE HCL 5MG TAB PO PRN ×3 (08:12→20:33)
[2021-10-07] MEDS: CITALOPRAM HYDROBR 20 MG TAB PO SCH (08:12)
[2021-10-07] MEDS: POTASSIUM CHL 20 Meq TABLET PO SCH (08:12)
[2021-10-07 09:03] VITALS: BP 123/85
[2021-10-07] MEDS: FOLIC ACID 1 MG, MULTIPLE VITAMIN 10 ML, MAGNESIUM SULF SDV 50% 8 MEQ, THIAMINE INJ 100... INJ SCH ×5 (12:00)
[2021-10-07 12:43] VITALS: BP 150/107
[2021-10-07 17:20] VITALS: BP 159/109
[2021-10-07 22:00] VITALS: BP 126/96
[2021-10-07] MEDS: QUEtiapine FUMARATE 100 MG TAB PO SCH (22:00)
[2021-10-08 05:00] VITALS: BP 133/98
[2021-10-08 06:11] LABS: BUN/Creatinine Ratio 15.2; Calcium 7.9 mg/dL (8.5-10.1); Potassium 3.4 mmol/L (3.5-5.1)
[2021-10-08 08:34] VITALS: BP 154/101
[2021-10-08] MEDS: CITALOPRAM HYDROBR 20 MG TAB PO SCH (08:56)
[2021-10-08] MEDS: cefTRIAXone 1GM/50ML D5W 50 ML IV SCH (08:56)
[2021-10-08] MEDS: oxyCODONE HCL 5MG TAB PO PRN (08:57)
[2021-10-08] MEDS: DULoxetine HCL 30 MG CAP PO SCH (08:57)
[2021-10-08] MEDS ORDERED: THIA100T5 PO (10:16)
[2021-10-08] MEDS ORDERED: CHL25C GT (10:16)
[2021-10-08] MEDS ORDERED: OXY10CRT PO (10:16)
[2021-10-08] MEDS ORDERED: FOLITAB22 PO (10:16)
[2021-10-08] MEDS ORDERED: LEVO500T31 PO (10:25)
[2021-10-08] MEDS: FOLIC ACID 1 MG, MULTIPLE VITAMIN 10 ML, MAGNESIUM SULF SDV 50% 8 MEQ, THIAMINE INJ 100... INJ SCH ×5 (12:00)
[2021-10-08 13:01] VITALS: BP 136/95
[2021-10-08 13:29] LABS: Hepatitis B Surface Antibody Positive (Negative)
[2021-10-08 13:57] LABS: Hepatitis A Total Antibody Positive (Negative)
[2021-10-08 15:08] LABS: Hepatitis C Antibody Negative (Negative)
== END 2021-10-08 14:15 | disposition home health service (06) | DRG 871 ==
LOC: EDBD 12:06 → ER 12:06 → TELE 16:43 → ICU WEST 10-03 04:07 → TELE-EAST 10-04 10:29 → EAST 10-05 01:55
PROVIDERS: ADMIT Internal Medicine; ATTEND Family Medicine
PROC: 05HC33Z Insertion of Infusion Device into Left Basilic Vein, Percutaneous Approach (ICD-10-PCS; principal; 2021-10-05)
PROC: B54NZZA Ultrasonography of Left Upper Extremity Veins, Guidance (ICD-10-PCS; 2021-10-05)
DX: A41.51 Sepsis due to Escherichia coli [E. coli] (principal); G93.41 Metabolic encephalopathy; D61.818 Other pancytopenia; E44.0 Moderate protein-calorie malnutrition; K74.60 Unspecified cirrhosis of liver; E87.6 Hypokalemia; Z20.822 Contact with and (suspected) exposure to COVID-19; R29.6 Repeated falls; D75.89 Other specified diseases of blood and blood-forming organs; E88.09 Other disorders of plasma-protein metabolism, not elsewhere classified; F41.9 Anxiety disorder, unspecified; G89.29 Other chronic pain; F17.210 Nicotine dependence, cigarettes, uncomplicated; R74.01 Elevation of levels of liver transaminase levels; I10 Essential (primary) hypertension; K43.9 Ventral hernia without obstruction or gangrene; K76.0 Fatty (change of) liver, not elsewhere classified; K21.9 Gastro-esophageal reflux disease without esophagitis; M54.50 Low back pain, unspecified; Z79.899 Other long term (current) drug therapy; Z90.49 Acquired absence of other specified parts of digestive tract; Z98.84 Bariatric surgery status; F10.229 Alcohol dependence with intoxication, unspecified; Y90.0 Blood alcohol level of less than 20 mg/100 ml; Z68.25 Body mass index [BMI] 25.0-25.9, adult
CPT/HCPCS: 36415; 70450; 71045; 74176; 76705; 80048; 80053; 80307; 80320; 81001; 82140; 82550; 83605; 83735; 84100; 84484; 85007; 85025; 85027; 85610; 85730; 86704; 86706; 86708; 86803; 87040; 87077; 87081; 87086; 87186; 87340; 87426; 93005; 96361; 96365; 96375; G0378; J0696; J2405; J2543; P9047

== ENCOUNTER 2021-10-29 14:44 | Inpatient (IN) | payer MEDICARE, MEDICAID ==
[~2021-10-29] VITALS: Ht 185.4 cm; Wt 89.1 kg
[~2021-10-29 14:44] MED LIST changes: +CHL25C GT; +FOLITAB22 PO; +LEVO500T31 PO; +OXY10CRT PO; -QUET300T14 PO; +QUET50TA PO; +THIA100T5 PO; +TRAZ-184 PO; -TRAZ1TAB12 PO
[2021-10-29 16:05] LABS: Basophils # (auto) 0 10 ^3/uL (0-0.2); Basophils % (auto) 1.1 % (0.0-2.0); Eosinophils # (auto) 0.1 10 ^3/uL (0-0.8); Eosinophils % (auto) 1.5 % (0.0-7.0); Hematocrit 25.8 % (41.0-53.0); Lymphocytes # (auto) 0.7 10 ^3/uL (0.4-5.4); Lymphocytes % (auto) 17.4 % (10.0-50.0); Mean Corpuscular Hemoglobin 35.6 pg (28.0-32.0); Mean Corpuscular Hgb Conc. 34.7 g/dL (32.0-36.0); Mean Corpuscular Volume 102.6 fL (80.0-100.0); Monocytes # (auto) 0.4 10 ^3/uL (0-1.3); Monocytes % (auto) 10.5 % (0.0-12.0); Neutrophils # (auto) 2.9 10 ^3/uL (1.6-8.6); Neutrophils % (auto) 69.5 % (37.0-80.0); Nucleated Red Blood Cells % 0.4 %; Red Blood Cells 2.52 10^6/uL (4.5-5.90); Red Cell Distribution Width 13.9 % (11.8-14.3); White Blood Cell 4.1 10^3/uL (4.4-10.8)
[2021-10-29 16:23] LABS: Albumin 2.1 g/dL (3.4-5.0); BUN/Creatinine Ratio 16.7; Calcium 7.9 mg/dL (8.5-10.1); Potassium 3.5 mmol/L (3.5-5.1)
[2021-10-29 16:26] LABS: Bilirubin, Total 0.5 mg/dL (0.2-1.0); Total Protein 5.4 g/dL (6.4-8.2)
[2021-10-29] MEDS ORDERED: FUROSEMIDE 40 MG/4 ML VIAL IV ONE ×2 (19:00→19:15)
[2021-10-29] MEDS ORDERED: ceFAZolin 1GM/50ML 50 ML IV ONE (22:30)
[2021-10-29] MEDS ORDERED: MORPHINE SULFATE INJECTION 2 MG/ML SYRG IV PRN (22:45)
[2021-10-29] MEDS ORDERED: ACETAMINOPHEN 325 MG TAB PO PRN (22:45)
[2021-10-29] MEDS ORDERED: NITROGLYCERIN 0.4 MG SL TAB SL PRN (22:45)
[2021-10-29] MEDS ORDERED: THIAMINE HCL 100 MG TAB PO ONE (23:00)
[2021-10-29] MEDS ORDERED: FOLIC ACID 1 MG TAB PO ONE (23:00)
[2021-10-30 04:06] VITALS: BP 107/76
[2021-10-30 05:00] VITALS: BP 110/78
[2021-10-30 05:55] LABS: Basophils # (auto) 0 10 ^3/uL (0-0.2); Basophils % (auto) 0.5 % (0.0-2.0); Eosinophils # (auto) 0.1 10 ^3/uL (0-0.8); Eosinophils % (auto) 2.8 % (0.0-7.0); Lymphocytes # (auto) 0.7 10 ^3/uL (0.4-5.4); Monocytes # (auto) 0.4 10 ^3/uL (0-1.3); Neutrophils # (auto) 1.5 10 ^3/uL (1.6-8.6)
[2021-10-30 06:00] LABS: Hematocrit 24.5 % (41.0-53.0); Hemoglobin 8.9 g/dL (13.5-17.5); Lymphocytes % (auto) 25.3 % (10.0-50.0); Mean Corpuscular Hemoglobin 36.8 pg (28.0-32.0); Mean Corpuscular Hgb Conc. 36.1 g/dL (32.0-36.0); Mean Corpuscular Volume 101.7 fL (80.0-100.0); Monocytes % (auto) 13.9 % (0.0-12.0); Neutrophils % (auto) 57.5 % (37.0-80.0); Nucleated Red Blood Cells % 0.1 %; Red Blood Cells 2.41 10^6/uL (4.5-5.90); White Blood Cell 2.6 10^3/uL (4.4-10.8)
[2021-10-30] MEDS: HEPARIN SODIUM (PORCINE) 5000 UNITS/ML 1ML VIAL SC SCH ×3 (06:13→21:28)
[2021-10-30 06:21] LABS: Chloride 107 mmol/L (98-107); Potassium 3.3 mmol/L (3.5-5.1); Sodium 138 mmol/L (136-145)
[2021-10-30] MEDS: HYDROmorphone HCL 2 MG/ML VL IV PRN ×4 (06:30→21:02)
[2021-10-30 06:32] LABS: Anion Gap 4 (5-15); BUN/Creatinine Ratio 11.6; Blood Urea Nitrogen 5 mg/dL (7-18); Carbon Dioxide 27 mmol/L (21-32); Cholesterol 100 mg/dL (< 200); GFR African American 266 mL/min; GFR Non-African American 220 mL/min; Glucose 95 mg/dL (74-106); HDL Cholesterol 44 mg/dL (40-59); LDL Cholesterol 44 mg/dL (< 100); Triglycerides 60 mg/dL (< 150)
[2021-10-30 09:19] VITALS: BP 122/87
[2021-10-30] MEDS ORDERED: DULoxetine HCL 30 MG CAP PO SCH (10:00)
[2021-10-30] MEDS ORDERED: PATIENTS OWN MEDICATION (Duloxetine Hcl (Cymbalta) 1 CAP) PO SCH (10:00)
[2021-10-30] MEDS ORDERED: CITALOPRAM HYDROBROMIDE 40 MG PO SCH (10:00)
[2021-10-30] MEDS ORDERED: FOLIC ACID PYRIDOXINE CYANCOBA PO SCH (10:00)
[2021-10-30] MEDS ORDERED: PATIENTS OWN MEDICATION (Ferrous Sulfate 325 MG) PO SCH (10:00)
[2021-10-30] MEDS ORDERED: THIAMINE HCL 100 MG TAB PO ONE (10:15)
[2021-10-30] MEDS ORDERED: FUROSEMIDE 40 MG/4 ML VIAL IV ONE (10:15)
[2021-10-30] MEDS ORDERED: SPIRONOLACTONE 25 MG TAB PO ONE (10:15)
[2021-10-30] MEDS ORDERED: POTASSIUM CHL 20 Meq TABLET PO ONE (10:15)
[2021-10-30] MEDS: FERROUS SULFATE 325mg EC TAB PO SCH (12:01)
[2021-10-30] MEDS: CITALOPRAM HYDROBR 20 MG TAB PO SCH (12:02)
[2021-10-30] MEDS: B-COMPLEX W/ C & FOLIC ACID(NEPHROVITE TAB) PO SCH (12:02)
[2021-10-30] MEDS: HYDROcodone-ACET 5/325MG TAB PO PRN (12:22)
[2021-10-30 12:51] VITALS: BP 143/102
[2021-10-30 16:35] VITALS: BP 129/91
[2021-10-30] MEDS: SPIRONOLACTONE 25 MG TAB PO SCH (17:40)
[2021-10-30] MEDS ORDERED: BACL20TA PO (20:48)
[2021-10-30] MEDS ORDERED: PANT40TA2 PO (20:48)
[2021-10-30] MEDS ORDERED: SPIR50TA5 PO (20:48)
[2021-10-30] MEDS ORDERED: ALPR0.254 PO (20:48)
[2021-10-30] MEDS ORDERED: CLON0.5T3 PO (20:48)
[2021-10-30] MEDS ORDERED: FOLI1TAB6 PO (20:48)
[2021-10-30] MEDS ORDERED: MORP15TA PO (20:48)
[2021-10-30] MEDS ORDERED: ERGO1CAP23 PO (20:48)
[2021-10-30] MEDS ORDERED: THIA100T30 PO (20:48)
[2021-10-30] MEDS ORDERED: GABA800T97 PO (20:48)
[2021-10-30] MEDS ORDERED: FERR-20 PO (20:48)
[2021-10-30] MEDS ORDERED: QUET300T14 PO (20:48)
[2021-10-30] MEDS: QUEtiapine FUMARATE 100 MG TAB PO SCH (21:20)
[2021-10-30 22:00] VITALS: BP 136/99
[2021-10-30] MEDS ORDERED: PATIENTS OWN MEDICATION (Quetiapine Fumerate (Seroquel) 100 MG) PO SCH (22:00)
[2021-10-31 03:25] LABS: Urine Bacteria NONE SEEN /hpf (None Seen); Urine Blood Negative /uL (Negative); Urine Specific Gravity 1.007 (1.001-1.035); Urine WBC 1 /hpf (0 - 3)
[2021-10-31] MEDS: HYDROmorphone HCL 2 MG/ML VL IV PRN ×4 (03:35→22:00)
[2021-10-31 05:00] VITALS: BP 118/82
[2021-10-31] MEDS: HYDROcodone-ACET 5/325MG TAB PO PRN (05:15)
[2021-10-31] MEDS: SPIRONOLACTONE 25 MG TAB PO SCH ×2 (05:42→17:58)
[2021-10-31] MEDS: HEPARIN SODIUM (PORCINE) 5000 UNITS/ML 1ML VIAL SC SCH ×3 (05:49→21:18)
[2021-10-31 06:59] LABS: Basophils # (auto) 0 10 ^3/uL (0-0.2); Eosinophils # (auto) 0.1 10 ^3/uL (0-0.8); Hemoglobin 8.8 g/dL (13.5-17.5); Monocytes # (auto) 0.3 10 ^3/uL (0-1.3); Neutrophils # (auto) 1.4 10 ^3/uL (1.6-8.6); White Blood Cell 2.5 10^3/uL (4.4-10.8)
[2021-10-31 07:02] LABS: Basophils % (auto) 0.5 % (0.0-2.0); Eosinophils % (auto) 2.4 % (0.0-7.0); Hematocrit 24.9 % (41.0-53.0); Lymphocytes # (auto) 0.8 10 ^3/uL (0.4-5.4); Lymphocytes % (auto) 30.2 % (10.0-50.0); Mean Corpuscular Hemoglobin 35.8 pg (28.0-32.0); Mean Corpuscular Hgb Conc. 35.3 g/dL (32.0-36.0); Mean Corpuscular Volume 101.6 fL (80.0-100.0); Monocytes % (auto) 11.6 % (0.0-12.0); Neutrophils % (auto) 55.3 % (37.0-80.0); Red Blood Cells 2.45 10^6/uL (4.5-5.90)
[2021-10-31 07:06] LABS: Albumin 1.9 g/dL (3.4-5.0); Calcium 8.3 mg/dL (8.5-10.1); Potassium 3.3 mmol/L (3.5-5.1)
[2021-10-31 07:08] LABS: Bilirubin, Total 0.4 mg/dL (0.2-1.0); Total Protein 4.9 g/dL (6.4-8.2)
[2021-10-31 07:21] LABS: INR 1.04 (0.9-1.15); Partial Thromboplastin Time 29.4 sec (23.6-33.0)
[2021-10-31 08:00] VITALS: BP 123/88
[2021-10-31 09:17] VITALS: BP 123/88
[2021-10-31] MEDS: POTASSIUM CHL 20 Meq TABLET PO SCH (09:19)
[2021-10-31] MEDS: CITALOPRAM HYDROBR 20 MG TAB PO SCH (09:19)
[2021-10-31] MEDS: THIAMINE HCL 100 MG TAB PO SCH (09:20)
[2021-10-31] MEDS: FERROUS SULFATE 325mg EC TAB PO SCH (09:20)
[2021-10-31] MEDS: B-COMPLEX W/ C & FOLIC ACID(NEPHROVITE TAB) PO SCH (09:21)
[2021-10-31] MEDS: FUROSEMIDE 40 MG/4 ML VIAL IV SCH (09:22)
[2021-10-31] MEDS ORDERED: POTASSIUM CHL 20 Meq TABLET PO ONE (09:30)
[2021-10-31 13:00] VITALS: BP 133/93
[2021-10-31 17:00] VITALS: BP 142/95
[2021-10-31] MEDS: QUEtiapine FUMARATE 100 MG TAB PO SCH (21:17)
[2021-10-31 22:00] VITALS: BP 134/98
[2021-11-01] MEDS: HYDROmorphone HCL 2 MG/ML VL IV PRN ×4 (04:23→20:19)
[2021-11-01 05:00] VITALS: BP 123/89
[2021-11-01] MEDS: SPIRONOLACTONE 25 MG TAB PO SCH ×2 (06:02→17:48)
[2021-11-01] MEDS: HEPARIN SODIUM (PORCINE) 5000 UNITS/ML 1ML VIAL SC SCH ×3 (06:07→21:46)
[2021-11-01 07:06] LABS: Potassium 3.2 mmol/L (3.5-5.1)
[2021-11-01 07:13] LABS: BUN/Creatinine Ratio 7.3; Calcium 8.1 mg/dL (8.5-10.1)
[2021-11-01 08:00] VITALS: BP_SYST 107; BP_SYST 134; BP_DIAS 77; BP_DIAS 98
[2021-11-01] MEDS: FUROSEMIDE 40 MG/4 ML VIAL IV SCH (09:37)
[2021-11-01] MEDS: THIAMINE HCL 100 MG TAB PO SCH (09:38)
[2021-11-01] MEDS: CITALOPRAM HYDROBR 20 MG TAB PO SCH (09:38)
[2021-11-01] MEDS: POTASSIUM CHL 20 Meq TABLET PO SCH (09:38)
[2021-11-01] MEDS: FERROUS SULFATE 325mg EC TAB PO SCH (09:38)
[2021-11-01] MEDS: B-COMPLEX W/ C & FOLIC ACID(NEPHROVITE TAB) PO SCH (09:39)
[2021-11-01 12:00] VITALS: BP 120/84
[2021-11-01] MEDS ORDERED: POTASSIUM CHL 20 Meq TABLET PO ONE (12:15)
[2021-11-01 16:00] VITALS: BP 124/86
[2021-11-01 21:22] VITALS: BP 139/98
[2021-11-01] MEDS: QUEtiapine FUMARATE 100 MG TAB PO SCH (21:52)
[2021-11-01 21:58] VITALS: BP 139/98
[2021-11-02] MEDS: HYDROmorphone HCL 2 MG/ML VL IV PRN ×3 (00:47→10:09)
[2021-11-02] MEDS: HEPARIN SODIUM (PORCINE) 5000 UNITS/ML 1ML VIAL SC SCH (05:03)
[2021-11-02] MEDS: SPIRONOLACTONE 25 MG TAB PO SCH (05:03)
[2021-11-02] MEDS ORDERED: FURO1TAB31 PO (10:00)
[2021-11-02] MEDS ORDERED: SPIR25TA PO (10:00)
[2021-11-02] MEDS ORDERED: CEPH-509 PO (10:00)
[2021-11-02] MEDS ORDERED: POTA-167 PO (10:00)
[2021-11-02] MEDS: FUROSEMIDE 40 MG/4 ML VIAL IV SCH (10:05)
[2021-11-02] MEDS: THIAMINE HCL 100 MG TAB PO SCH (10:06)
[2021-11-02] MEDS: FERROUS SULFATE 325mg EC TAB PO SCH (10:06)
[2021-11-02] MEDS: B-COMPLEX W/ C & FOLIC ACID(NEPHROVITE TAB) PO SCH (10:07)
[2021-11-02] MEDS: POTASSIUM CHL 20 Meq TABLET PO SCH (10:07)
[2021-11-02] MEDS: CITALOPRAM HYDROBR 20 MG TAB PO SCH (10:07)
[2021-11-02 13:06] VITALS: BP 128/88
== END 2021-11-02 13:56 | disposition home or self-care (01) | DRG 603 ==
LOC: ER 14:44 → TELE 22:42 → TELE-CENTR 23:42
PROVIDERS: ADMIT Internal Medicine; ATTEND Internal Medicine
DX: L03.116 Cellulitis of left lower limb (principal); L03.115 Cellulitis of right lower limb; R09.02 Hypoxemia; E87.70 Fluid overload, unspecified; K70.0 Alcoholic fatty liver; F20.9 Schizophrenia, unspecified; F10.10 Alcohol abuse, uncomplicated; K21.9 Gastro-esophageal reflux disease without esophagitis; I11.0 Hypertensive heart disease with heart failure; I50.9 Heart failure, unspecified; K74.60 Unspecified cirrhosis of liver; Z20.822 Contact with and (suspected) exposure to COVID-19; D50.9 Iron deficiency anemia, unspecified; K72.90 Hepatic failure, unspecified without coma; Z79.899 Other long term (current) drug therapy; Z80.3 Family history of malignant neoplasm of breast; Z90.49 Acquired absence of other specified parts of digestive tract; Z98.84 Bariatric surgery status; Z83.3 Family history of diabetes mellitus; Z80.42 Family history of malignant neoplasm of prostate
CPT/HCPCS: 36415; 36600; 80048; 80053; 80061; 81001; 82105; 82140; 82805; 83735; 83880; 84484; 85025; 85610; 85730; 87040; 87081; 93005; 93306; 93970; 96365; 96375; 99291; G0378; J0690

== ENCOUNTER 2022-09-11 16:14 | Inpatient (IN) | payer MEDICARE, MEDICAID ==
[~2022-09-11] VITALS: Ht 185.4 cm; Wt 87.5 kg
[~2022-09-11 16:14] MED LIST changes: +ALPR0.254 PO; +BACL20TA PO; +CEPH-509 PO; +CLON0.5T3 PO; -DULO60CA PO; +ERGO1CAP23 PO; +FOLI1TAB6 PO; -FOLITAB22 PO; +FURO1TAB31 PO; +GABA800T97 PO; -LEVO500T31 PO; -LORA0.5T20 PO; -OXY5T PO; +PANT40TA2 PO; +POTA-167 PO; +QUET300T14 PO; -QUET50TA PO; +SPIR25TA PO; +SPIR50TA5 PO; +THIA100T30 PO; -THIA100T5 PO
[2022-09-11 17:35] LABS: Albumin 3.5 g/dL (3.4-5.0); BUN/Creatinine Ratio 38.3; Calcium 9.3 mg/dL (8.5-10.1); Magnesium 2.4 mg/dL (1.6-2.6); Potassium 3.1 mmol/L (3.5-5.1)
[2022-09-11 17:37] LABS: Bilirubin, Total 1.5 mg/dL (0.2-1.0); Total Protein 7.1 g/dL (6.4-8.2)
[2022-09-11 17:57] LABS: Basophils # (auto) 0 10 ^3/uL (0-0.2); Eosinophils # (auto) 0 10 ^3/uL (0-0.8); Eosinophils % (auto) 0.1 % (0.0-7.0); Monocytes # (auto) 0.8 10 ^3/uL (0-1.3)
[2022-09-11 17:59] LABS: Basophils % (auto) 0.1 % (0.0-2.0); Hematocrit 43.1 % (41.0-53.0); Hemoglobin 14.9 g/dL (13.5-17.5); Lymphocytes # (auto) 0.5 10 ^3/uL (0.4-5.4); Lymphocytes % (auto) 5.4 % (10.0-50.0); Mean Corpuscular Hemoglobin 36.3 pg (28.0-32.0); Mean Corpuscular Hgb Conc. 34.6 g/dL (32.0-36.0); Mean Corpuscular Volume 104.8 fL (80.0-100.0); Monocytes % (auto) 7.9 % (0.0-12.0); Neutrophils # (auto) 8.6 10 ^3/uL (1.6-8.6); Neutrophils % (auto) 86.5 % (37.0-80.0); Red Blood Cells 4.11 10^6/uL (4.5-5.90)
[2022-09-11] MEDS ORDERED: SODIUM CHLORIDE 0.9% 1,000 ML IV ONE (20:15)
[2022-09-11] MEDS ORDERED: THIAMINE HCL 100 MG TAB PO ONE (21:15)
[2022-09-11] MEDS ORDERED: ACETAMINOPHEN 325 MG TAB PO PRN (21:30)
[2022-09-11] MEDS ORDERED: HYDROcodone-ACET 5/325MG TAB PO PRN (21:30)
[2022-09-11] MEDS ORDERED: ONDANSETRON HCL 4 MG/2 ML VIAL IV PRN (21:30)
[2022-09-11] MEDS: GABAPENTIN 300 MG CAP PO SCH (22:21)
[2022-09-11] MEDS: MORPHINE SULF 15mg ER tab PO SCH (22:21)
[2022-09-12] MEDS: TEMAZEPAM 15 MG CAP PO PRN (00:35)
[2022-09-12 01:41] LABS: Urine Bacteria NONE SEEN /hpf (None Seen); Urine Blood Negative /uL (Negative); Urine Mucus FEW (None Seen); Urine Specific Gravity 1.031 (1.001-1.035); Urine WBC 1 /hpf (0 - 3)
[2022-09-12 01:54] LABS: Alcohol, Urine < 3.0 mg/dL (0-10); Amphetamine Screen, Urine NEGATIVE (NEGATIVE); Barbiturate Scree,Urine NEGATIVE (NEGATIVE); Benzodiazephine Screen, Urine NEGATIVE (NEGATIVE); Cannabinoid Screen, Urine NEGATIVE (NEGATIVE)
[2022-09-12 02:02] LABS: Cocaine Screen, Urine NEGATIVE (NEGATIVE); Opiate Scree,Urine POSITIVE (NEGATIVE); Phencyclidine Screen, Urine NEGATIVE (NEGATIVE)
[2022-09-12] MEDS: GABAPENTIN 300 MG CAP PO SCH ×3 (05:55→22:21)
[2022-09-12 08:06] LABS: BUN/Creatinine Ratio 42.6; Calcium 8.5 mg/dL (8.5-10.1)
[2022-09-12 08:13] LABS: Potassium 2.8 mmol/L (3.5-5.1)
[2022-09-12] MEDS: ENOXAPARIN SOD 40 MG/0.4 ML SYRINGE SC SCH (10:37)
[2022-09-12] MEDS: FUROSEMIDE 40 MG TAB PO SCH (10:38)
[2022-09-12] MEDS: SPIRONOLACTONE 25 MG TAB PO SCH (10:38)
[2022-09-12] MEDS: MORPHINE SULF 15mg ER tab PO SCH ×2 (10:38→22:22)
[2022-09-12] MEDS ORDERED: POTASSIUM EFFERVESENT TAB 25 MEQ PO ONE (11:15)
[2022-09-12 22:00] VITALS: BP 116/83
[2022-09-13 00:47] VITALS: BP 116/83
[2022-09-13] MEDS ORDERED: DULO20CA PO (02:04)
[2022-09-13 05:00] VITALS: BP 118/77
[2022-09-13] MEDS: GABAPENTIN 300 MG CAP PO SCH ×3 (05:30→20:22)
[2022-09-13] MEDS ORDERED: BACLOFEN 10 MG TAB PO PRN (08:15)
[2022-09-13 09:00] VITALS: BP 113/78
[2022-09-13] MEDS: POTASSIUM EFFERVESENT TAB 25 MEQ GT SCH (09:10)
[2022-09-13] MEDS: MORPHINE SULF 15mg ER tab PO SCH ×2 (09:11→20:21)
[2022-09-13] MEDS: ENOXAPARIN SOD 40 MG/0.4 ML SYRINGE SC SCH (09:11)
[2022-09-13] MEDS: clonazePAM 0.5 MG TAB PO SCH ×2 (09:12→20:24)
[2022-09-13] MEDS: SPIRONOLACTONE 25 MG TAB PO SCH (09:12)
[2022-09-13] MEDS: oxyCODONE ER 10 MG TAB PO SCH ×2 (09:12→20:25)
[2022-09-13] MEDS: FUROSEMIDE 40 MG TAB PO SCH (09:12)
[2022-09-13] MEDS: DULoxetine HCL 30 MG CAP PO SCH (09:13)
[2022-09-13] MEDS ORDERED: POTASSIUM EFFERVESENT TAB 25 MEQ GT ONE (09:15)
[2022-09-13 11:07] LABS: BUN/Creatinine Ratio 34.7; Calcium 8.9 mg/dL (8.5-10.1)
[2022-09-13 13:00] VITALS: BP 108/78
[2022-09-13] MEDS ORDERED: LORazepam 2MG/ML-1ML VIAL IV ONE (17:15)
[2022-09-13] MEDS: TEMAZEPAM 15 MG CAP PO PRN (20:23)
[2022-09-13] MEDS: traZODone HCL 50 MG TAB PO SCH (20:24)
[2022-09-13] MEDS ORDERED: QUEtiapine FUMARATE 100 MG TAB PO SCH (22:00)
[2022-09-14] VITALS (7 sets, daily range): BP systolic 100–142; BP diastolic 60–77
[2022-09-14] MEDS: GABAPENTIN 300 MG CAP PO SCH ×3 (05:41→21:20)
[2022-09-14] MEDS ORDERED: chlordiazePOXIDE HCL 25 MG CAP PO PRN (08:45)
[2022-09-14] MEDS: oxyCODONE ER 10 MG TAB PO SCH ×2 (10:13→21:55)
[2022-09-14] MEDS: MORPHINE SULF 15mg ER tab PO SCH ×2 (10:14→21:55)
[2022-09-14] MEDS: SPIRONOLACTONE 25 MG TAB PO SCH (10:14)
[2022-09-14] MEDS: FUROSEMIDE 40 MG TAB PO SCH (10:14)
[2022-09-14] MEDS: POTASSIUM EFFERVESENT TAB 25 MEQ GT SCH (10:14)
[2022-09-14] MEDS: DULoxetine HCL 30 MG CAP PO SCH (10:14)
[2022-09-14] MEDS: clonazePAM 0.5 MG TAB PO SCH ×2 (10:15→21:54)
[2022-09-14] MEDS: ENOXAPARIN SOD 40 MG/0.4 ML SYRINGE SC SCH (10:15)
[2022-09-14] MEDS ORDERED: LORazepam 2MG/ML-1ML VIAL IV PRN (18:45)
[2022-09-14] MEDS: chlordiazePOXIDE HCL 25 MG CAP PO SCH (21:53)
[2022-09-14] MEDS: TEMAZEPAM 15 MG CAP PO PRN (21:53)
[2022-09-14] MEDS: traZODone HCL 50 MG TAB PO SCH (21:54)
[2022-09-14] MEDS: FOLIC ACID 1 MG, MULTIPLE VITAMIN 10 ML, MAGNESIUM SULF SDV 50% 8 MEQ, THIAMINE INJ 100... INJ SCH ×5 (22:00)
[2022-09-15] VITALS (8 sets, daily range): BP systolic 104–124; BP diastolic 52–86
[2022-09-15] MEDS: chlordiazePOXIDE HCL 25 MG CAP PO SCH ×3 (02:45→17:04)
[2022-09-15] MEDS: GABAPENTIN 300 MG CAP PO SCH ×3 (06:00→22:01)
[2022-09-15] MEDS: POTASSIUM EFFERVESENT TAB 25 MEQ GT SCH (09:05)
[2022-09-15] MEDS: SPIRONOLACTONE 25 MG TAB PO SCH (09:06)
[2022-09-15] MEDS: DULoxetine HCL 30 MG CAP PO SCH (09:06)
[2022-09-15] MEDS: MORPHINE SULF 15mg ER tab PO SCH ×2 (09:06→22:04)
[2022-09-15] MEDS: clonazePAM 0.5 MG TAB PO SCH ×2 (09:06→22:04)
[2022-09-15] MEDS: FUROSEMIDE 40 MG TAB PO SCH (09:06)
[2022-09-15] MEDS: oxyCODONE ER 10 MG TAB PO SCH ×2 (09:07→22:04)
[2022-09-15] MEDS ORDERED: chlordiazePOXIDE HCL 25 MG CAP PO SCH ×2 (10:00→12:00)
[2022-09-15] MEDS ORDERED: FOLIC ACID 1 MG, MULTIPLE VITAMIN 10 ML, MAGNESIUM SULF SDV 50% 8 MEQ, THIAMINE INJ 100... INJ SCH ×5 (12:00)
[2022-09-15] MEDS: FOLIC ACID 1 MG, MULTIPLE VITAMIN 10 ML, MAGNESIUM SULF SDV 50% 8 MEQ, THIAMINE INJ 100... INJ SCH ×5 (14:00)
[2022-09-15] MEDS: OLANZapine 5 MG TAB PO SCH (17:05)
[2022-09-15] MEDS: traZODone HCL 50 MG TAB PO SCH (22:03)
[2022-09-15] MEDS: TEMAZEPAM 15 MG CAP PO PRN (22:04)
[2022-09-16] MEDS: chlordiazePOXIDE HCL 25 MG CAP PO SCH ×3 (01:00→20:49)
[2022-09-16] MEDS: GABAPENTIN 300 MG CAP PO SCH ×3 (04:01→20:50)
[2022-09-16 05:00] VITALS: BP 89/62
[2022-09-16] MEDS: POTASSIUM EFFERVESENT TAB 25 MEQ GT SCH (08:47)
[2022-09-16] MEDS: oxyCODONE ER 10 MG TAB PO SCH ×2 (08:48→20:50)
[2022-09-16] MEDS: OLANZapine 5 MG TAB PO SCH (08:48)
[2022-09-16] MEDS: FUROSEMIDE 40 MG TAB PO SCH (08:48)
[2022-09-16] MEDS: clonazePAM 0.5 MG TAB PO SCH ×2 (08:48→20:50)
[2022-09-16] MEDS: DULoxetine HCL 30 MG CAP PO SCH (08:48)
[2022-09-16] MEDS: MORPHINE SULF 15mg ER tab PO SCH ×2 (08:48→20:49)
[2022-09-16] MEDS: SPIRONOLACTONE 25 MG TAB PO SCH (08:49)
[2022-09-16 09:00] VITALS: BP 104/70
[2022-09-16] MEDS ORDERED: chlordiazePOXIDE HCL 25 MG CAP PO SCH (10:00)
[2022-09-16] MEDS: FOLIC ACID 1 MG, MULTIPLE VITAMIN 10 ML, MAGNESIUM SULF SDV 50% 8 MEQ, THIAMINE INJ 100... INJ SCH ×5 (12:54)
[2022-09-16 13:00] VITALS: BP 100/65
[2022-09-16 17:00] VITALS: BP 100/62
[2022-09-16] MEDS: traZODone HCL 50 MG TAB PO SCH (20:49)
[2022-09-16 22:00] VITALS: BP 109/66
[2022-09-17 05:00] VITALS: BP 110/70
[2022-09-17] MEDS: GABAPENTIN 300 MG CAP PO SCH (05:58)
[2022-09-17] MEDS ORDERED: chlordiazePOXIDE HCL 25 MG CAP PO SCH ×2 (07:00→10:00)
[2022-09-17] MEDS: POTASSIUM EFFERVESENT TAB 25 MEQ GT SCH (09:01)
[2022-09-17] MEDS: FUROSEMIDE 40 MG TAB PO SCH (09:01)
[2022-09-17] MEDS: oxyCODONE ER 10 MG TAB PO SCH (09:01)
[2022-09-17] MEDS: DULoxetine HCL 30 MG CAP PO SCH (09:02)
[2022-09-17] MEDS: clonazePAM 0.5 MG TAB PO SCH (09:02)
[2022-09-17] MEDS: OLANZapine 5 MG TAB PO SCH (09:02)
[2022-09-17] MEDS: SPIRONOLACTONE 25 MG TAB PO SCH (09:02)
[2022-09-17] MEDS: MORPHINE SULF 15mg ER tab PO SCH (09:02)
[2022-09-17 12:42] VITALS: BP 100/66
[2022-09-18] MEDS ORDERED: chlordiazePOXIDE HCL 25 MG CAP PO SCH (07:00)
== END 2022-09-17 14:30 | DRG 640 ==
LOC: EDBD 16:14 → ER 16:14 → OVERFLOW 21:24 → CENTRAL 09-12 21:38
PROVIDERS: ADMIT Nurse Practitioner; ATTEND Family Medicine
DX: R62.7 Adult failure to thrive (principal); G92.8 Other toxic encephalopathy; F10.231 Alcohol dependence with withdrawal delirium; K74.60 Unspecified cirrhosis of liver; E87.6 Hypokalemia; F20.9 Schizophrenia, unspecified; G47.00 Insomnia, unspecified; G89.4 Chronic pain syndrome; I11.9 Hypertensive heart disease without heart failure; G62.9 Polyneuropathy, unspecified; Z20.822 Contact with and (suspected) exposure to COVID-19; Z60.2 Problems related to living alone; M54.9 Dorsalgia, unspecified; D64.9 Anemia, unspecified; Z98.84 Bariatric surgery status; Z80.42 Family history of malignant neoplasm of prostate; Z80.3 Family history of malignant neoplasm of breast; Z83.3 Family history of diabetes mellitus; Z68.23 Body mass index [BMI] 23.0-23.9, adult; Z71.41 Alcohol abuse counseling and surveillance of alcoholic; Z90.49 Acquired absence of other specified parts of digestive tract; T40.605A Adverse effect of unspecified narcotics, initial encounter
CPT/HCPCS: 36415; 70450; 71045; 71250; 72125; 74176; 80048; 80053; 80307; 80320; 81001; 82140; 82550; 83605; 83735; 83880; 84484; 85025; 87426; 93005; 97163; G0378; J2405

== ENCOUNTER 2022-09-22 12:51 | Inpatient (IN) | payer MEDICARE, MEDICAID ==
[2022-09-22] VITALS (13 sets, daily range): BP systolic 89–125; BP diastolic 59–82
[~2022-09-22] VITALS: Ht 165.1 cm; Wt 87.9 kg
[~2022-09-22 12:51] MED LIST changes: +DULO20CA PO
[2022-09-22] MEDS ORDERED: SUCCINYLCHOLINE CHLORIDE 20 MG/ML 10ML VIAL IV ONE ×2 (13:05→18:45)
[2022-09-22] MEDS ORDERED: ETOMIDATE (2MG/ML) 20ML VIAL IV ONE ×2 (13:05→18:45)
[2022-09-22] MEDS ORDERED: MIDAZOLAM DRIP 50 mg/50mL 50 ML IV ONE (13:05)
[2022-09-22] MEDS ORDERED: cefTRIAXone 1GM/50ML D5W 50 ML IV ONE (13:30)
[2022-09-22] MEDS ORDERED: AZITHROMYCIN 500MG/ 250ML 250 ML IV ONE (13:30)
[2022-09-22] MEDS: MIDAZOLAM DRIP 50 mg/50mL 50 ML IV SCH ×2 (13:32→17:37)
[2022-09-22 14:14] LABS: Albumin 2.5 g/dL (3.4-5.0); Anion Gap 6 (5-15); BUN/Creatinine Ratio 10.2; Blood Alcohol < 3.0 mg/dL (0-5); Blood Urea Nitrogen 6 mg/dL (7-18); Calcium 7.9 mg/dL (8.5-10.1); Carbon Dioxide 29 mmol/L (21-32); Chloride 104 mmol/L (98-107); GFR African American 184 mL/min; GFR Non-African American 152 mL/min; Glucose 146 mg/dL (74-106); Potassium 4.1 mmol/L (3.5-5.1); Sodium 139 mmol/L (136-145)
[2022-09-22 14:16] LABS: Hematocrit 36.5 % (41.0-53.0); Hemoglobin 12.6 g/dL (13.5-17.5); Mean Corpuscular Hemoglobin 36.5 pg (28.0-32.0); Mean Corpuscular Hgb Conc. 34.6 g/dL (32.0-36.0); Mean Corpuscular Volume 105.3 fL (80.0-100.0); Red Blood Cells 3.47 10^6/uL (4.5-5.90); Red Cell Distribution Width 12.8 % (11.8-14.3); White Blood Cell 16.7 10^3/uL (4.4-10.8)
[2022-09-22 14:18] LABS: Basophils # (auto) 0 10 ^3/uL (0-0.2); Eosinophils # (auto) 0 10 ^3/uL (0-0.8)
[2022-09-22 14:20] LABS: Alanine Aminotransferase 14 U/L (16-61); Alkaline Phosphatase 80 U/L (45-117); Aspartate Aminotransferase 14 U/L (15-37); Basophils % (manual) 0 (0.0-2.0); Bilirubin, Total 0.3 mg/dL (0.2-1.0); Blast Cells 0; Eosinophils % (manual) 0 (0-7); Metamyelocytes % 0; Myelocytes % 0; Promyelocytes % 0; Reactive Lymphocytes 0; Total Protein 5.7 g/dL (6.4-8.2)
[2022-09-22 14:23] LABS: Urine Bacteria FEW /hpf (None Seen); Urine Blood Negative /uL (Negative); Urine Hyaline Cast FEW /lpf (0 - 2); Urine Specific Gravity 1.007 (1.001-1.035); Urine WBC 1 /hpf (0 - 3)
[2022-09-22] MEDS: fentaNYL Drip 2500mCg/250mlNS 250 ML IV SCH (14:32)
[2022-09-22] MEDS ORDERED: SODIUM CHLORIDE 0.9% 500 ML IV ONE (15:00)
[2022-09-22] MEDS ORDERED: VASOPRESSIN 20 UNITS in SODIUM CHL 0.9% 99 ML IV SCH (15:00)
[2022-09-22] MEDS ORDERED: PHENYLEPHRINE IV 250 ML IV ONE (15:04)
[2022-09-22] MEDS: PHENYLEPHRINE IV 250 ML IV SCH (15:17)
[2022-09-22 15:43] LABS: Band Neutrophils % (manual) 9; Lymphocytes % (manual) 5 (10.0-50.0); Monocytes % (manual) 7 (0-12)
[2022-09-22] MEDS ORDERED: MORPHINE SULFATE INJ 2 MG/ml SYRG IV PRN (18:15)
[2022-09-22] MEDS ORDERED: NITROGLYCERIN 0.4 MG SL TAB SL PRN (18:15)
[2022-09-22] MEDS: SODIUM CHLORIDE 0.9% 1,000 ML IV SCH (18:24)
[2022-09-22] MEDS ORDERED: VANCOMYCIN PER PHARMACY 0 MG IV SCH (19:00)
[2022-09-22 19:09] LABS: Cholesterol 110 mg/dL (< 200)
[2022-09-22 19:12] LABS: HDL Cholesterol 55 mg/dL (40-59); LDL Cholesterol 58 mg/dL (< 100); Triglycerides 41 mg/dL (< 150)
[2022-09-22 19:17] LABS: Alcohol, Urine < 3.0 mg/dL (0-10); Amphetamine Screen, Urine NEGATIVE (NEGATIVE); Barbiturate Scree,Urine NEGATIVE (NEGATIVE); Benzodiazephine Screen, Urine POSITIVE (NEGATIVE); Cannabinoid Screen, Urine NEGATIVE (NEGATIVE); Cocaine Screen, Urine NEGATIVE (NEGATIVE)
[2022-09-22 19:25] LABS: Opiate Scree,Urine POSITIVE (NEGATIVE); Phencyclidine Screen, Urine NEGATIVE (NEGATIVE)
[2022-09-22] MEDS: VANCOMYCIN 1GM/250ML 250 ML IV SCH (20:28)
[2022-09-22] MEDS: CEFEPIME 1GM/ 50ML 50 ML IV SCH (22:56)
[2022-09-23] VITALS (100 sets, daily range): BP systolic 83–131; BP diastolic 51–90
[2022-09-23] MEDS: MIDAZOLAM DRIP 50 mg/50mL 50 ML IV SCH ×7 (00:20→16:57)
[2022-09-23] MEDS: PHENYLEPHRINE IV 250 ML IV SCH ×6 (00:59→22:03)
[2022-09-23] MEDS: VANCOMYCIN 1GM/250ML 250 ML IV SCH ×3 (03:36→21:27)
[2022-09-23 03:59] LABS: Basophils # (auto) 0 10 ^3/uL (0-0.2); Basophils % (auto) 0.3 % (0.0-2.0); Eosinophils # (auto) 0.1 10 ^3/uL (0-0.8); Eosinophils % (auto) 0.6 % (0.0-7.0); Hematocrit 32.8 % (41.0-53.0); Hemoglobin 11.1 g/dL (13.5-17.5); Lymphocytes # (auto) 0.8 10 ^3/uL (0.4-5.4); Lymphocytes % (auto) 6.2 % (10.0-50.0); Mean Corpuscular Hemoglobin 35.7 pg (28.0-32.0); Mean Corpuscular Hgb Conc. 33.9 g/dL (32.0-36.0); Mean Corpuscular Volume 105.4 fL (80.0-100.0); Monocytes # (auto) 1.2 10 ^3/uL (0-1.3); Monocytes % (auto) 9.6 % (0.0-12.0); Neutrophils # (auto) 10.6 10 ^3/uL (1.6-8.6); Neutrophils % (auto) 83.3 % (37.0-80.0); Red Blood Cells 3.11 10^6/uL (4.5-5.90); Red Cell Distribution Width 12.9 % (11.8-14.3); White Blood Cell 12.8 10^3/uL (4.4-10.8)
[2022-09-23 05:16] LABS: Calcium 7.8 mg/dL (8.5-10.1); Potassium 3.4 mmol/L (3.5-5.1)
[2022-09-23 05:19] LABS: BUN/Creatinine Ratio 22.9
[2022-09-23 05:22] LABS: Bilirubin, Total 0.3 mg/dL (0.2-1.0); Total Protein 4.8 g/dL (6.4-8.2)
[2022-09-23] MEDS: CEFEPIME 1GM/ 50ML 50 ML IV SCH ×2 (07:24→15:44)
[2022-09-23] MEDS: SODIUM CHLORIDE 0.9% 1,000 ML IV SCH ×2 (07:47→12:43)
[2022-09-23] MEDS: ENOXAPARIN SOD 40 MG/0.4 ML SYRINGE SC SCH (10:27)
[2022-09-23] MEDS ORDERED: POTASSIUM EFFERVESENT TAB 25 MEQ GT ONE (12:30)
[2022-09-23] MEDS ORDERED: LACTULOSE 20Gm/30ML SOLN PO ONE (12:30)
[2022-09-23] MEDS ORDERED: PANTOPRAZOLE 40 MG/10 ML VIAL INJ IV ONE (12:30)
[2022-09-23] MEDS ORDERED: ACETAMINOPHEN 500 MG TAB PO PRN (12:30)
[2022-09-23] MEDS: ACETAMINOPHEN 650 mg PER 20.3 mL UD GT PRN (12:51)
[2022-09-23] MEDS: fentaNYL Drip 2500mCg/250mlNS 250 ML IV SCH (16:51)
[2022-09-23] MEDS: LACTULOSE 20Gm/30ML SOLN PO SCH (22:00)
[2022-09-24] VITALS (101 sets, daily range): BP systolic 76–148; BP diastolic 45–96
[2022-09-24] MEDS: CEFEPIME 1GM/ 50ML 50 ML IV SCH ×3 (00:05→14:00)
[2022-09-24] MEDS: VANCOMYCIN 1GM/250ML 250 ML IV SCH ×3 (04:00→23:49)
[2022-09-24 04:51] LABS: INR 0.97 (0.9-1.15); Partial Thromboplastin Time 32.3 sec (24.6-33.4)
[2022-09-24 06:19] LABS: Albumin 2.1 g/dL (3.4-5.0); Anion Gap 10 (5-15); Blood Urea Nitrogen 9 mg/dL (7-18); Calcium 7.7 mg/dL (8.5-10.1); Carbon Dioxide 22 mmol/L (21-32); Chloride 106 mmol/L (98-107); Glucose 83 mg/dL (74-106); Potassium 4.4 mmol/L (3.5-5.1); Sodium 138 mmol/L (136-145)
[2022-09-24 06:23] LABS: Alanine Aminotransferase 10 U/L (16-61); Alkaline Phosphatase 84 U/L (45-117); Aspartate Aminotransferase 18 U/L (15-37); BUN/Creatinine Ratio 19.6; Bilirubin, Total 0.4 mg/dL (0.2-1.0); GFR African American 245 mL/min; GFR Non-African American 203 mL/min; Total Protein 5.2 g/dL (6.4-8.2)
[2022-09-24 08:35] LABS: Basophils # (auto) 0.1 10 ^3/uL (0-0.2); Eosinophils # (auto) 0.2 10 ^3/uL (0-0.8); Eosinophils % (auto) 1.4 % (0.0-7.0); Mean Corpuscular Hgb Conc. 33.8 g/dL (32.0-36.0); Monocytes # (auto) 1.5 10 ^3/uL (0-1.3); Neutrophils # (auto) 9.2 10 ^3/uL (1.6-8.6); Red Blood Cells 3.42 10^6/uL (4.5-5.90)
[2022-09-24 08:36] LABS: Hematocrit 36.2 % (41.0-53.0); Hemoglobin 12.2 g/dL (13.5-17.5); Lymphocytes # (auto) 0.4 10 ^3/uL (0.4-5.4); Lymphocytes % (auto) 3.4 % (10.0-50.0); Mean Corpuscular Hemoglobin 35.7 pg (28.0-32.0); Mean Corpuscular Volume 105.8 fL (80.0-100.0); Monocytes % (auto) 13.2 % (0.0-12.0); Red Cell Distribution Width 12.5 % (11.8-14.3); White Blood Cell 11.4 10^3/uL (4.4-10.8)
[2022-09-24] MEDS: PHENYLEPHRINE IV 250 ML IV SCH (09:01)
[2022-09-24] MEDS: ACETAMINOPHEN 650 mg PER 20.3 mL UD GT PRN (09:03)
[2022-09-24] MEDS: MIDAZOLAM DRIP 50 mg/50mL 50 ML IV SCH ×3 (09:35→18:43)
[2022-09-24] MEDS: LACTULOSE 20Gm/30ML SOLN PO SCH ×2 (10:00→23:49)
[2022-09-24] MEDS: PANTOPRAZOLE 40 MG/10 ML VIAL INJ IV SCH (10:00)
[2022-09-24] MEDS: ENOXAPARIN SOD 40 MG/0.4 ML SYRINGE SC SCH (10:00)
[2022-09-24] MEDS: DOPamine 1600MCG/ML D5W 250 ML IV SCH (12:45)
[2022-09-24] MEDS ORDERED: Jevity 1.2 Cal/Fiber 1 Liter GT SCH (12:45)
[2022-09-24] MEDS: SODIUM CHLORIDE 0.9% 1,000 ML IV SCH (13:26)
[2022-09-24] MEDS: NOREPINEPHRINE 8 MG/250ML KIT 250 ML IV SCH (13:29)
[2022-09-24] MEDS: fentaNYL Drip 2500mCg/250mlNS 250 ML IV SCH (17:46)
[2022-09-25] VITALS (102 sets, daily range): BP systolic 88–152; BP diastolic 37–96
[2022-09-25] MEDS: CEFEPIME 1GM/ 50ML 50 ML IV SCH ×4 (00:47→21:55)
[2022-09-25 03:58] LABS: Basophils # (auto) 0 10 ^3/uL (0-0.2); Basophils % (auto) 0.6 % (0.0-2.0); Eosinophils # (auto) 0.2 10 ^3/uL (0-0.8); Eosinophils % (auto) 2.8 % (0.0-7.0); Hematocrit 34.2 % (41.0-53.0); Hemoglobin 11.8 g/dL (13.5-17.5); Lymphocytes # (auto) 0.6 10 ^3/uL (0.4-5.4); Lymphocytes % (auto) 7.4 % (10.0-50.0); Mean Corpuscular Hemoglobin 35.9 pg (28.0-32.0); Mean Corpuscular Hgb Conc. 34.5 g/dL (32.0-36.0); Mean Corpuscular Volume 104.3 fL (80.0-100.0); Monocytes % (auto) 12.5 % (0.0-12.0); Neutrophils # (auto) 6.1 10 ^3/uL (1.6-8.6); Neutrophils % (auto) 76.7 % (37.0-80.0); Red Blood Cells 3.28 10^6/uL (4.5-5.90); Red Cell Distribution Width 12.8 % (11.8-14.3)
[2022-09-25 04:08] LABS: BUN/Creatinine Ratio 22.6; Calcium 8.1 mg/dL (8.5-10.1); Potassium 3.8 mmol/L (3.5-5.1)
[2022-09-25] MEDS: VANCOMYCIN 1GM/250ML 250 ML IV SCH ×3 (05:47→20:39)
[2022-09-25] MEDS: MIDODRINE HCL 10 MG TAB PO SCH ×2 (06:00→18:00)
[2022-09-25] MEDS: SODIUM CHLORIDE 0.9% 1,000 ML IV SCH (07:58)
[2022-09-25] MEDS: DOPamine 1600MCG/ML D5W 250 ML IV SCH (08:18)
[2022-09-25] MEDS: MIDAZOLAM DRIP 50 mg/50mL 50 ML IV SCH ×4 (08:23→23:19)
[2022-09-25] MEDS: PANTOPRAZOLE 40 MG/10 ML VIAL INJ IV SCH (09:50)
[2022-09-25] MEDS: LACTULOSE 20Gm/30ML SOLN PO SCH ×2 (09:50→21:55)
[2022-09-25] MEDS: ENOXAPARIN SOD 40 MG/0.4 ML SYRINGE SC SCH (09:51)
[2022-09-25] MEDS ORDERED: MIDODRINE HCL 10 MG TAB PO ONE (11:45)
[2022-09-26] VITALS (104 sets, daily range): BP systolic 85–149; BP diastolic 44–103
[2022-09-26] MEDS: SODIUM CHLORIDE 0.9% 1,000 ML IV SCH ×2 (02:30→07:10)
[2022-09-26] MEDS: VANCOMYCIN 1GM/250ML 250 ML IV SCH ×3 (03:46→19:44)
[2022-09-26] MEDS: MIDAZOLAM DRIP 50 mg/50mL 50 ML IV SCH ×4 (03:54→21:30)
[2022-09-26 03:57] LABS: Basophils # (auto) 0 10 ^3/uL (0-0.2); Eosinophils # (auto) 0.1 10 ^3/uL (0-0.8); Monocytes # (auto) 0.8 10 ^3/uL (0-1.3); Monocytes % (auto) 11.8 % (0.0-12.0); White Blood Cell 6.7 10^3/uL (4.4-10.8)
[2022-09-26 04:00] LABS: Basophils % (auto) 0.7 % (0.0-2.0); Eosinophils % (auto) 1.6 % (0.0-7.0); Hematocrit 33.7 % (41.0-53.0); Hemoglobin 11.6 g/dL (13.5-17.5); Lymphocytes # (auto) 0.6 10 ^3/uL (0.4-5.4); Lymphocytes % (auto) 8.4 % (10.0-50.0); Mean Corpuscular Hemoglobin 35.6 pg (28.0-32.0); Mean Corpuscular Hgb Conc. 34.6 g/dL (32.0-36.0); Mean Corpuscular Volume 102.9 fL (80.0-100.0); Neutrophils # (auto) 5.2 10 ^3/uL (1.6-8.6); Neutrophils % (auto) 77.5 % (37.0-80.0); Red Blood Cells 3.27 10^6/uL (4.5-5.90); Red Cell Distribution Width 12.5 % (11.8-14.3)
[2022-09-26 04:17] LABS: Calcium 8.2 mg/dL (8.5-10.1); Potassium 3.1 mmol/L (3.5-5.1)
[2022-09-26 04:19] LABS: BUN/Creatinine Ratio 16.7
[2022-09-26] MEDS: NOREPINEPHRINE 8 MG/250ML KIT 250 ML IV SCH ×2 (06:00→12:01)
[2022-09-26] MEDS: CEFEPIME 1GM/ 50ML 50 ML IV SCH ×3 (06:02→21:28)
[2022-09-26] MEDS: DOPamine 1600MCG/ML D5W 250 ML IV SCH (09:33)
[2022-09-26] MEDS: PANTOPRAZOLE 40 MG/10 ML VIAL INJ IV SCH (10:12)
[2022-09-26] MEDS: fentaNYL Drip 2500mCg/250mlNS 250 ML IV SCH ×3 (10:12→21:30)
[2022-09-26] MEDS: ENOXAPARIN SOD 40 MG/0.4 ML SYRINGE SC SCH (10:13)
[2022-09-26] MEDS: LACTULOSE 20Gm/30ML SOLN PO SCH (10:13)
[2022-09-26] MEDS: POTASSIUM CHL 20MEQ/100ML 100 ML IV SCH ×2 (12:00→14:02)
[2022-09-26] MEDS: MIDODRINE HCL 10 MG TAB PO SCH ×2 (12:01→18:30)
[2022-09-26] MEDS ORDERED: FLUCONAZOLE 200MG/100ML 100 ML IV ONE (13:00)
[2022-09-26] MEDS ORDERED: Jevity 1.2 Cal/Fiber 1 Liter GT SCH (13:00)
[2022-09-26] MEDS ORDERED: LACTULOSE 20Gm/30ML SOLN PO PRN (13:00)
[2022-09-26] MEDS ORDERED: QUEtiapine FUMARATE 25 MG TAB PO SCH (22:00)
[2022-09-27] VITALS (104 sets, daily range): BP systolic 69–157; BP diastolic 38–100
[2022-09-27] MEDS: MIDAZOLAM DRIP 50 mg/50mL 50 ML IV SCH ×8 (01:50→19:52)
[2022-09-27] MEDS: VANCOMYCIN 1GM/250ML 250 ML IV SCH ×3 (03:27→19:55)
[2022-09-27 04:19] LABS: Basophils # (auto) 0 10 ^3/uL (0-0.2); Basophils % (auto) 0.2 % (0.0-2.0); Eosinophils # (auto) 0.1 10 ^3/uL (0-0.8); Eosinophils % (auto) 1.1 % (0.0-7.0); Hematocrit 32.5 % (41.0-53.0); Hemoglobin 11.5 g/dL (13.5-17.5); Lymphocytes # (auto) 0.5 10 ^3/uL (0.4-5.4); Lymphocytes % (auto) 4.3 % (10.0-50.0); Mean Corpuscular Hemoglobin 36.3 pg (28.0-32.0); Mean Corpuscular Hgb Conc. 35.2 g/dL (32.0-36.0); Monocytes % (auto) 9.9 % (0.0-12.0); Neutrophils # (auto) 8.8 10 ^3/uL (1.6-8.6); Neutrophils % (auto) 84.5 % (37.0-80.0); Red Blood Cells 3.15 10^6/uL (4.5-5.90); Red Cell Distribution Width 12.6 % (11.8-14.3); White Blood Cell 10.4 10^3/uL (4.4-10.8)
[2022-09-27 04:36] LABS: Potassium 3.4 mmol/L (3.5-5.1)
[2022-09-27] MEDS: CEFEPIME 1GM/ 50ML 50 ML IV SCH ×3 (05:27→21:43)
[2022-09-27] MEDS: MIDODRINE HCL 10 MG TAB PO SCH ×3 (05:31→18:08)
[2022-09-27] MEDS: NOREPINEPHRINE 8 MG/250ML KIT 250 ML IV SCH ×2 (07:25→17:38)
[2022-09-27] MEDS: FLUCONAZOLE 200MG/100ML 100 ML IV SCH (10:00)
[2022-09-27] MEDS: ENOXAPARIN SOD 40 MG/0.4 ML SYRINGE SC SCH (10:19)
[2022-09-27] MEDS: PANTOPRAZOLE 40 MG/10 ML VIAL INJ IV SCH (10:19)
[2022-09-27] MEDS ORDERED: POTASSIUM EFFERVESENT TAB 25 MEQ GT ONE (10:30)
[2022-09-27] MEDS: QUEtiapine FUMARATE 100 MG TAB PO SCH (21:43)
[2022-09-28] VITALS (105 sets, daily range): BP systolic 85–146; BP diastolic 38–97
[2022-09-28] MEDS: MIDAZOLAM DRIP 50 mg/50mL 50 ML IV SCH ×8 (02:19→23:35)
[2022-09-28 03:22] LABS: Basophils # (auto) 0 10 ^3/uL (0-0.2); Basophils % (auto) 0.3 % (0.0-2.0); Eosinophils # (auto) 0.2 10 ^3/uL (0-0.8); Eosinophils % (auto) 1.9 % (0.0-7.0); Hematocrit 38.1 % (41.0-53.0); Hemoglobin 12.5 g/dL (13.5-17.5); Lymphocytes % (auto) 10.7 % (10.0-50.0); Mean Corpuscular Hemoglobin 35.7 pg (28.0-32.0); Mean Corpuscular Hgb Conc. 32.8 g/dL (32.0-36.0); Mean Corpuscular Volume 108.7 fL (80.0-100.0); Monocytes # (auto) 1.6 10 ^3/uL (0-1.3); Monocytes % (auto) 16.6 % (0.0-12.0); Neutrophils # (auto) 6.8 10 ^3/uL (1.6-8.6); Neutrophils % (auto) 70.5 % (37.0-80.0); Nucleated Red Blood Cells % 0.2 %; Red Blood Cells 3.51 10^6/uL (4.5-5.90); Red Cell Distribution Width 13.1 % (11.8-14.3); White Blood Cell 9.6 10^3/uL (4.4-10.8)
[2022-09-28 03:38] LABS: BUN/Creatinine Ratio 12.8; Potassium 3.7 mmol/L (3.5-5.1)
[2022-09-28] MEDS: VANCOMYCIN 1GM/250ML 250 ML IV SCH (04:00)
[2022-09-28] MEDS: NOREPINEPHRINE 8 MG/250ML KIT 250 ML IV SCH ×2 (04:47→08:55)
[2022-09-28] MEDS: CEFEPIME 1GM/ 50ML 50 ML IV SCH ×3 (05:43→21:38)
[2022-09-28] MEDS: MIDODRINE HCL 10 MG TAB PO SCH ×2 (05:43→12:15)
[2022-09-28] MEDS: PANTOPRAZOLE 40 MG/10 ML VIAL INJ IV SCH (10:29)
[2022-09-28] MEDS: FLUCONAZOLE 200MG/100ML 100 ML IV SCH (10:29)
[2022-09-28] MEDS: ENOXAPARIN SOD 40 MG/0.4 ML SYRINGE SC SCH (10:30)
[2022-09-28] MEDS: ALBUMIN 25% 100 ML IV SCH (10:53)
[2022-09-28] MEDS: fentaNYL Drip 2500mCg/250mlNS 250 ML IV SCH (10:55)
[2022-09-28] MEDS: VANCOMYCIN 750mg/250ml 250 ML IV SCH ×2 (14:54→21:38)
[2022-09-28] MEDS: QUEtiapine FUMARATE 100 MG TAB PO SCH (21:37)
[2022-09-29] VITALS (82 sets, daily range): BP systolic 81–152; BP diastolic 42–98
[2022-09-29] MEDS: ALBUMIN 25% 100 ML IV SCH (01:51)
[2022-09-29] MEDS: MIDAZOLAM DRIP 50 mg/50mL 50 ML IV SCH ×7 (02:55→22:34)
[2022-09-29 04:12] LABS: Basophils # (auto) 0 10 ^3/uL (0-0.2); Eosinophils # (auto) 0.1 10 ^3/uL (0-0.8); Hematocrit 29.3 % (41.0-53.0); Mean Corpuscular Volume 103.2 fL (80.0-100.0); Monocytes # (auto) 0.5 10 ^3/uL (0-1.3); Neutrophils # (auto) 4.9 10 ^3/uL (1.6-8.6); Red Blood Cells 2.84 10^6/uL (4.5-5.90); White Blood Cell 6.1 10^3/uL (4.4-10.8)
[2022-09-29 04:15] LABS: Basophils % (auto) 0.6 % (0.0-2.0); Eosinophils % (auto) 0.8 % (0.0-7.0); Hemoglobin 10.2 g/dL (13.5-17.5); Lymphocytes # (auto) 0.6 10 ^3/uL (0.4-5.4); Lymphocytes % (auto) 9.5 % (10.0-50.0); Mean Corpuscular Hgb Conc. 34.8 g/dL (32.0-36.0); Monocytes % (auto) 8.5 % (0.0-12.0); Neutrophils % (auto) 80.6 % (37.0-80.0); Nucleated Red Blood Cells % 0.2 %; Red Cell Distribution Width 12.8 % (11.8-14.3)
[2022-09-29 04:34] LABS: Albumin 2.4 g/dL (3.4-5.0); BUN/Creatinine Ratio 12.5; Calcium 8.4 mg/dL (8.5-10.1); Potassium 3.7 mmol/L (3.5-5.1)
[2022-09-29 04:36] LABS: Bilirubin, Total 0.3 mg/dL (0.2-1.0)
[2022-09-29] MEDS: CEFEPIME 1GM/ 50ML 50 ML IV SCH ×3 (05:30→23:52)
[2022-09-29] MEDS: VANCOMYCIN 750mg/250ml 250 ML IV SCH ×3 (05:30→23:47)
[2022-09-29] MEDS: MIDODRINE HCL 10 MG TAB PO SCH ×3 (05:31→17:42)
[2022-09-29] MEDS ORDERED: ALBUMIN 25% 100 ML IV ONE (07:20)
[2022-09-29] MEDS: ACETAMINOPHEN 650 mg PER 20.3 mL UD GT PRN (07:44)
[2022-09-29] MEDS: PANTOPRAZOLE 40 MG/10 ML VIAL INJ IV SCH (10:54)
[2022-09-29] MEDS: FLUCONAZOLE 200MG/100ML 100 ML IV SCH (10:54)
[2022-09-29] MEDS: ENOXAPARIN SOD 40 MG/0.4 ML SYRINGE SC SCH (10:55)
[2022-09-29] MEDS: NOREPINEPHRINE 8 MG/250ML KIT 250 ML IV SCH (12:45)
[2022-09-29] MEDS: MORPHINE SULFATE INJ 2 MG/ml SYRG IV PRN ×2 (13:16→19:27)
[2022-09-29] MEDS: fentaNYL Drip 2500mCg/250mlNS 250 ML IV SCH (14:15)
[2022-09-29] MEDS: QUEtiapine FUMARATE 100 MG TAB PO SCH (22:32)
[2022-09-30] MEDS: MIDAZOLAM DRIP 50 mg/50mL 50 ML IV SCH ×4 (02:15→11:37)
[2022-09-30 05:00] VITALS: BP 129/77
[2022-09-30] MEDS: CEFEPIME 1GM/ 50ML 50 ML IV SCH ×3 (05:30→22:00)
[2022-09-30] MEDS: VANCOMYCIN 750mg/250ml 250 ML IV SCH ×3 (05:31→22:49)
[2022-09-30] MEDS: MORPHINE SULFATE INJ 2 MG/ml SYRG IV PRN ×3 (05:40→18:19)
[2022-09-30] MEDS: MIDODRINE HCL 10 MG TAB PO SCH ×2 (05:47→17:17)
[2022-09-30 06:11] LABS: Basophils # (auto) 0 10 ^3/uL (0-0.2); Basophils % (auto) 0.7 % (0.0-2.0); Eosinophils # (auto) 0 10 ^3/uL (0-0.8); Eosinophils % (auto) 0.7 % (0.0-7.0); Hematocrit 30.5 % (41.0-53.0); Hemoglobin 10.9 g/dL (13.5-17.5); Lymphocytes # (auto) 0.7 10 ^3/uL (0.4-5.4); Lymphocytes % (auto) 10.9 % (10.0-50.0); Mean Corpuscular Hemoglobin 36.5 pg (28.0-32.0); Mean Corpuscular Hgb Conc. 35.9 g/dL (32.0-36.0); Mean Corpuscular Volume 101.7 fL (80.0-100.0); Monocytes # (auto) 0.8 10 ^3/uL (0-1.3); Monocytes % (auto) 12.4 % (0.0-12.0); Neutrophils % (auto) 75.3 % (37.0-80.0); Red Cell Distribution Width 12.9 % (11.8-14.3); White Blood Cell 6.7 10^3/uL (4.4-10.8)
[2022-09-30 06:17] LABS: Potassium 3.1 mmol/L (3.5-5.1)
[2022-09-30 06:25] LABS: Albumin 2.7 g/dL (3.4-5.0); BUN/Creatinine Ratio 9.8; Bilirubin, Total 0.3 mg/dL (0.2-1.0); Calcium 8.5 mg/dL (8.5-10.1); Total Protein 5.4 g/dL (6.4-8.2)
[2022-09-30 09:00] VITALS: BP 12/76
[2022-09-30] MEDS: PANTOPRAZOLE 40 MG/10 ML VIAL INJ IV SCH (09:31)
[2022-09-30] MEDS: FLUCONAZOLE 200MG/100ML 100 ML IV SCH (09:31)
[2022-09-30] MEDS: ENOXAPARIN SOD 40 MG/0.4 ML SYRINGE SC SCH (09:31)
[2022-09-30] MEDS: NOREPINEPHRINE 8 MG/250ML KIT 250 ML IV SCH (11:38)
[2022-09-30] MEDS ORDERED: MIDODRINE HCL 10 MG TAB PO SCH (12:00)
[2022-09-30 13:00] VITALS: BP 120/74
[2022-09-30] MEDS: D5W/SOD CHL 0.45%/KCL 40MEQ 1,000 ML IV SCH (13:55)
[2022-09-30 17:01] VITALS: BP 118/78
[2022-09-30 22:00] VITALS: BP 131/77
[2022-09-30] MEDS: QUEtiapine FUMARATE 100 MG TAB PO SCH (22:49)
[2022-10-01] MEDS: D5W/SOD CHL 0.45%/KCL 40MEQ 1,000 ML IV SCH (01:20)
[2022-10-01] MEDS: VANCOMYCIN 750mg/250ml 250 ML IV SCH ×3 (04:56→22:03)
[2022-10-01 05:00] VITALS: BP 136/83
[2022-10-01] MEDS: MIDODRINE HCL 10 MG TAB PO SCH ×3 (06:00→17:43)
[2022-10-01] MEDS: CEFEPIME 1GM/ 50ML 50 ML IV SCH ×3 (06:12→23:28)
[2022-10-01 07:16] LABS: BUN/Creatinine Ratio 15.8; Calcium 8.6 mg/dL (8.5-10.1); Magnesium 2.2 mg/dL (1.6-2.6)
[2022-10-01 07:47] LABS: Potassium 2.5 mmol/L (3.5-5.1)
[2022-10-01 09:00] VITALS: BP 135/81
[2022-10-01] MEDS: FLUCONAZOLE 200MG/100ML 100 ML IV SCH (09:18)
[2022-10-01] MEDS: ENOXAPARIN SOD 40 MG/0.4 ML SYRINGE SC SCH (09:18)
[2022-10-01] MEDS: PANTOPRAZOLE 40 MG/10 ML VIAL INJ IV SCH (09:18)
[2022-10-01] MEDS: MORPHINE SULFATE INJ 2 MG/ml SYRG IV PRN ×3 (10:31→23:27)
[2022-10-01] MEDS ORDERED: POTASSIUM EFFERVESENT TAB 25 MEQ PO ONE (11:15)
[2022-10-01] MEDS ORDERED: POTASSIUM CHLORIDE 40 MEQ, LIDOCAINE 1% (LOCAL ANESTH.) 4 ML in SODIUM CHL 0.9% 250 ML IV ONE (11:45)
[2022-10-01 13:00] VITALS: BP 119/79
[2022-10-01 17:00] VITALS: BP 132/83
[2022-10-01] MEDS: QUEtiapine FUMARATE 100 MG TAB PO SCH (22:03)
[2022-10-02 05:00] VITALS: BP 137/84
[2022-10-02] MEDS: VANCOMYCIN 750mg/250ml 250 ML IV SCH (05:26)
[2022-10-02 05:53] LABS: BUN/Creatinine Ratio 12.5; Calcium 8.4 mg/dL (8.5-10.1); Potassium 3.6 mmol/L (3.5-5.1)
[2022-10-02] MEDS: MIDODRINE HCL 10 MG TAB PO SCH (06:00)
[2022-10-02] MEDS: CEFEPIME 1GM/ 50ML 50 ML IV SCH (07:01)
[2022-10-02 08:20] VITALS: BP 124/89
[2022-10-02] MEDS: CITALOPRAM HYDROBR 20 MG TAB PO SCH (08:30)
[2022-10-02] MEDS: PANTOPRAZOLE 40 MG TAB PO SCH (08:30)
[2022-10-02] MEDS: FLUCONAZOLE 100 MG TAB PO SCH (08:30)
[2022-10-02] MEDS: ENOXAPARIN SOD 40 MG/0.4 ML SYRINGE SC SCH (08:31)
[2022-10-02] MEDS: MORPHINE SULFATE INJ 2 MG/ml SYRG IV PRN ×2 (08:35→15:51)
[2022-10-02] MEDS ORDERED: FOLIC ACID 1 MG TAB PO ONE (10:45)
[2022-10-02 12:40] VITALS: BP 133/90
[2022-10-02] MEDS: GABAPENTIN 300 MG CAP PO SCH ×2 (13:30→20:53)
[2022-10-02 16:25] VITALS: BP 126/84
[2022-10-02 22:00] VITALS: BP 112/85
[2022-10-02] MEDS ORDERED: QUEtiapine FUMARATE 100 MG TAB PO SCH (22:00)
[2022-10-03 05:00] VITALS: BP 126/82
[2022-10-03] MEDS: GABAPENTIN 300 MG CAP PO SCH ×2 (06:12→14:11)
[2022-10-03 08:34] VITALS: BP 129/89
[2022-10-03] MEDS: PANTOPRAZOLE 40 MG TAB PO SCH (09:02)
[2022-10-03] MEDS: CITALOPRAM HYDROBR 20 MG TAB PO SCH (09:03)
[2022-10-03] MEDS: FLUCONAZOLE 100 MG TAB PO SCH (09:03)
[2022-10-03] MEDS ORDERED: FOLIC ACID 1 MG TAB PO SCH (10:00)
[2022-10-03] MEDS ORDERED: levoFLOXacin 500 MG TAB PO SCH (10:00)
[2022-10-03 12:51] VITALS: BP 140/92
[2022-10-03] MEDS: MORPHINE SULFATE INJ 2 MG/ml SYRG IV PRN (14:20)
[2022-10-03 16:31] VITALS: BP 122/86
== END 2022-10-03 20:00 | DRG 870 ==
LOC: ER 12:51 → EDBD 12:51 → TELE 18:11 → ICU WEST 22:12 → TELE-EAST 09-29 21:30 → EAST 10-03 01:52
PROVIDERS: ADMIT Registered Nurse; ATTEND Internal Medicine
PROC: 5A1955Z Respiratory Ventilation, Greater than 96 Consecutive Hours (ICD-10-PCS; principal; 2022-09-22)
PROC: 0BH18EZ Insertion of Endotracheal Airway into Trachea, Via Natural or Artificial Opening Endoscopic (ICD-10-PCS; 2022-09-22)
PROC: 02HV33Z Insertion of Infusion Device into Superior Vena Cava, Percutaneous Approach (ICD-10-PCS; 2022-09-22)
DX: A41.9 Sepsis, unspecified organism (principal); E43 Unspecified severe protein-calorie malnutrition; R65.21 Severe sepsis with septic shock; J18.9 Pneumonia, unspecified organism; J96.01 Acute respiratory failure with hypoxia; K76.82 Hepatic encephalopathy; F20.9 Schizophrenia, unspecified; E66.9 Obesity, unspecified; Z20.822 Contact with and (suspected) exposure to COVID-19; K21.9 Gastro-esophageal reflux disease without esophagitis; I10 Essential (primary) hypertension; K70.30 Alcoholic cirrhosis of liver without ascites; F29 Unspecified psychosis not due to a substance or known physiological condition; R62.7 Adult failure to thrive; E87.6 Hypokalemia; Z90.49 Acquired absence of other specified parts of digestive tract; Z80.3 Family history of malignant neoplasm of breast; Z83.3 Family history of diabetes mellitus; Z80.42 Family history of malignant neoplasm of prostate; Z68.32 Body mass index [BMI] 32.0-32.9, adult
CPT/HCPCS: 31500; 36415; 36556; 36600; 70450; 71045; 71250; 71275; 80048; 80053; 80061; 80202; 80307; 80320; 81001; 82140; 82607; 82805; 83036; 83605; 83735; 84443; 84484; 85007; 85025; 85027; 85379; 85610; 85730; 87040; 87070; 87077; 87081; 87086; 87186; 87205; 87426; 92610; 93005; 93306; 93970; 94002; 94003; 94640; 96361; 96365; 96367; 96368; 97110; 97116; 97163; 97530; 99291; C9113; G0378; J0330; J0696; J1450; J2001; J2250; J3480; J7060; P9047

== ENCOUNTER 2022-12-26 04:20 | Inpatient (IN) | payer MEDICARE, MEDICAID ==
[~2022-12-26] VITALS: Ht 185.4 cm; Wt 85.2 kg
[~2022-12-26 04:20] MED LIST changes: -FERR-20 PO; +FERR325T24 PO; +FOLI-119 PO; -FOLI1TAB6 PO; -POTA-167 PO; +POTA-211 PO
[2022-12-26] MEDS ORDERED: HYDROcodone-ACET 5/325MG TAB PO ONE (04:45)
[2022-12-26] MEDS ORDERED: KETOROLAC TROMETH 30 MG/ML 1ML VIAL IV ONE (06:30)
[2022-12-26] MEDS ORDERED: SODIUM CHLORIDE 0.9% 1,000 ML IV ONE (06:30)
[2022-12-26 06:55] LABS: Basophils # (auto) 0 10 ^3/uL (0-0.2); Basophils % (auto) 0.1 % (0.0-2.0); Eosinophils # (auto) 0 10 ^3/uL (0-0.8); Lymphocytes # (auto) 0.5 10 ^3/uL (0.4-5.4); Nucleated Red Blood Cells % 0.1 %
[2022-12-26 06:57] LABS: Hematocrit 28.6 % (41.0-53.0); Lymphocytes % (auto) 5.1 % (10.0-50.0); Mean Corpuscular Hgb Conc. 35.1 g/dL (32.0-36.0); Mean Corpuscular Volume 99.7 fL (80.0-100.0); Monocytes # (auto) 0.5 10 ^3/uL (0-1.3); Monocytes % (auto) 5.5 % (0.0-12.0); Neutrophils # (auto) 8.9 10 ^3/uL (1.6-8.6); Neutrophils % (auto) 89.3 % (37.0-80.0); Red Blood Cells 2.86 10^6/uL (4.5-5.90); Red Cell Distribution Width 15.9 % (11.8-14.3); White Blood Cell 9.9 10^3/uL (4.4-10.8)
[2022-12-26 07:07] LABS: Albumin 3.3 g/dL (3.4-5.0); Potassium 3.2 mmol/L (3.5-5.1)
[2022-12-26 07:09] LABS: BUN/Creatinine Ratio 19.6 (10.0-20.0); Bilirubin, Total 1.6 mg/dL (0.2-1.0); INR 0.95 (0.9-1.15); Partial Thromboplastin Time 27.1 sec (24.6-33.4); Total Protein 6.3 g/dL (6.4-8.2)
[2022-12-26] MEDS ORDERED: DOCUSATE SOD 100 MG CAP PO PRN (09:45)
[2022-12-26] MEDS ORDERED: ONDANSETRON HCL 4 MG/2 ML VIAL IV PRN (09:45)
[2022-12-26] MEDS ORDERED: FERROUS SULFATE 325mg EC TAB PO SCH (10:00)
[2022-12-26] MEDS ORDERED: LORazepam 2MG/ML-1ML VIAL IV PRN (10:15)
[2022-12-26] MEDS: POTASSIUM CHL 10 Meq TABLET PO SCH (10:39)
[2022-12-26] MEDS: PANTOPRAZOLE 40 MG TAB PO SCH (10:39)
[2022-12-26] MEDS: NEOMYCIN-BACITRACIN-POLYM UNITDOSE PKG TOP OINT TOP SCH ×2 (10:40→22:00)
[2022-12-26] MEDS: GABAPENTIN 400 MG CAP PO SCH ×2 (14:12→21:54)
[2022-12-26 15:40] VITALS: BP 127/81
[2022-12-26 17:15] VITALS: BP 114/65
[2022-12-26] MEDS: MORPHINE SULFATE INJ 2 MG/ml SYRG IV PRN ×2 (17:16→21:56)
[2022-12-26] MEDS: SPIRONOLACTONE 25 MG TAB PO SCH (18:42)
[2022-12-26] MEDS: QUEtiapine FUMARATE 100 MG TAB PO SCH ×2 (18:42→21:55)
[2022-12-26 20:00] VITALS: BP 125/78
[2022-12-26 22:00] VITALS: BP 125/78
[2022-12-27 05:00] VITALS: BP 137/71
[2022-12-27] MEDS: SPIRONOLACTONE 25 MG TAB PO SCH ×2 (06:00→17:47)
[2022-12-27] MEDS: GABAPENTIN 400 MG CAP PO SCH ×3 (06:00→22:00)
[2022-12-27] MEDS: FUROSEMIDE 40 MG TAB PO SCH (07:00)
[2022-12-27 09:00] VITALS: BP 105/55
[2022-12-27 09:06] LABS: Basophils # (auto) 0 10 ^3/uL (0-0.2); Basophils % (auto) 0.1 % (0.0-2.0); Eosinophils # (auto) 0 10 ^3/uL (0-0.8); Lymphocytes # (auto) 0.2 10 ^3/uL (0.4-5.4); Lymphocytes % (auto) 3.5 % (10.0-50.0)
[2022-12-27 09:08] LABS: Eosinophils % (auto) 0.1 % (0.0-7.0); Hematocrit 24.1 % (41.0-53.0); Hemoglobin 8.3 g/dL (13.5-17.5); Mean Corpuscular Hemoglobin 35.3 pg (28.0-32.0); Mean Corpuscular Hgb Conc. 34.5 g/dL (32.0-36.0); Mean Corpuscular Volume 102.2 fL (80.0-100.0); Monocytes # (auto) 0.3 10 ^3/uL (0-1.3); Monocytes % (auto) 5.9 % (0.0-12.0); Neutrophils % (auto) 90.4 % (37.0-80.0); Red Blood Cells 2.36 10^6/uL (4.5-5.90); Red Cell Distribution Width 15.7 % (11.8-14.3); White Blood Cell 5.5 10^3/uL (4.4-10.8)
[2022-12-27 09:18] LABS: Albumin 2.7 g/dL (3.4-5.0); Calcium 7.6 mg/dL (8.5-10.1); Potassium 3.1 mmol/L (3.5-5.1)
[2022-12-27 09:21] LABS: BUN/Creatinine Ratio 47.2 (10.0-20.0); Bilirubin, Total 0.7 mg/dL (0.2-1.0); Total Protein 5.3 g/dL (6.4-8.2)
[2022-12-27] MEDS: PANTOPRAZOLE 40 MG TAB PO SCH (09:54)
[2022-12-27] MEDS: POTASSIUM CHL 10 Meq TABLET PO SCH (09:56)
[2022-12-27] MEDS ORDERED: THIAMINE HCL 100 MG TAB PO SCH (10:00)
[2022-12-27] MEDS ORDERED: FERROUS SULFATE 325mg EC TAB PO SCH (10:00)
[2022-12-27] MEDS ORDERED: FOLIC ACID 1 MG TAB PO SCH (10:00)
[2022-12-27 13:00] VITALS: BP 99/50
[2022-12-27] MEDS: chlordiazePOXIDE HCL 25 MG CAP PO SCH ×2 (14:33→22:30)
[2022-12-27] MEDS: NEOMYCIN-BACITRACIN-POLYM UNITDOSE PKG TOP OINT TOP SCH ×2 (14:35→22:00)
[2022-12-27 16:30] VITALS: BP 116/68
[2022-12-27] MEDS: MORPHINE SULFATE INJ 2 MG/ml SYRG IV PRN (16:44)
[2022-12-27] MEDS: QUEtiapine FUMARATE 100 MG TAB PO SCH (17:48)
[2022-12-27 21:30] VITALS: BP 97/59
[2022-12-28] VITALS (10 sets, daily range): BP systolic 81–115; BP diastolic 47–68
[2022-12-28] MEDS: MORPHINE SULFATE INJ 2 MG/ml SYRG IV PRN ×2 (00:17→08:45)
[2022-12-28 04:59] LABS: Urine Bacteria NONE SEEN /hpf (None Seen); Urine Blood Negative /uL (Negative); Urine Mucus FEW (None Seen); Urine Specific Gravity 1.016 (1.001-1.035); Urine WBC 1 /hpf (0 - 3)
[2022-12-28 05:14] LABS: Creatinine, Urine 117 mg/dL (30.0-125.0); Sodium Urine 10 mmol/L (40-220)
[2022-12-28] MEDS: chlordiazePOXIDE HCL 25 MG CAP PO SCH (05:56)
[2022-12-28] MEDS: GABAPENTIN 400 MG CAP PO SCH ×3 (05:57→21:29)
[2022-12-28] MEDS: FUROSEMIDE 40 MG TAB PO SCH (05:58)
[2022-12-28] MEDS: SPIRONOLACTONE 25 MG TAB PO SCH ×2 (05:59→18:31)
[2022-12-28 06:52] LABS: Potassium 3.1 mmol/L (3.5-5.1)
[2022-12-28 06:53] LABS: Basophils # (auto) 0 10 ^3/uL (0-0.2); Basophils % (auto) 0.1 % (0.0-2.0); Eosinophils # (auto) 0 10 ^3/uL (0-0.8); Lymphocytes # (auto) 0.3 10 ^3/uL (0.4-5.4); Mean Corpuscular Volume 103.8 fL (80.0-100.0); Monocytes # (auto) 0.5 10 ^3/uL (0-1.3); Red Cell Distribution Width 16.3 % (11.8-14.3); White Blood Cell 5.1 10^3/uL (4.4-10.8)
[2022-12-28 06:55] LABS: Eosinophils % (auto) 0.3 % (0.0-7.0); Hematocrit 21.9 % (41.0-53.0); Hemoglobin 7.7 g/dL (13.5-17.5); Lymphocytes % (auto) 6.4 % (10.0-50.0); Mean Corpuscular Hemoglobin 36.3 pg (28.0-32.0); Monocytes % (auto) 10.4 % (0.0-12.0); Neutrophils # (auto) 4.2 10 ^3/uL (1.6-8.6); Neutrophils % (auto) 82.8 % (37.0-80.0); Nucleated Red Blood Cells % 0.4 %; Red Blood Cells 2.11 10^6/uL (4.5-5.90)
[2022-12-28 06:59] LABS: Albumin 2.5 g/dL (3.4-5.0); BUN/Creatinine Ratio 15.7 (10.0-20.0); Bilirubin, Total 0.9 mg/dL (0.2-1.0); Calcium 7.6 mg/dL (8.5-10.1); Total Protein 5.5 g/dL (6.4-8.2)
[2022-12-28] MEDS ORDERED: MORPHINE SULFATE INJ 2 MG/ml SYRG IV PRN (09:30)
[2022-12-28] MEDS ORDERED: MORPHINE SULFATE 10 MG/5 ML ORAL SOLN PO PRN (09:30)
[2022-12-28] MEDS: POTASSIUM CHL 10 Meq TABLET PO SCH (09:33)
[2022-12-28] MEDS: PANTOPRAZOLE 40 MG TAB PO SCH (09:33)
[2022-12-28] MEDS ORDERED: LACTULOSE 20Gm/30ML SOLN PO SCH (10:00)
[2022-12-28] MEDS: FOLIC ACID 1 MG, MULTIPLE VITAMIN 10 ML, MAGNESIUM SULF SDV 50% 8 MEQ, THIAMINE INJ 100... INJ SCH ×5 (14:46)
[2022-12-28] MEDS: NEOMYCIN-BACITRACIN-POLYM UNITDOSE PKG TOP OINT TOP SCH (15:05)
[2022-12-28] MEDS ORDERED: chlordiazePOXIDE HCL 25 MG CAP PO SCH (18:00)
[2022-12-28] MEDS: QUEtiapine FUMARATE 100 MG TAB PO SCH (18:30)
[2022-12-28] MEDS ORDERED: NALOXONE HCL 1MG/ML 2ML SYRINGE ONE (21:47)
[2022-12-28] MEDS ORDERED: NALOXONE HCL 1MG/ML 2ML SYRINGE IV ONE ×2 (22:00→22:15)
[2022-12-28] MEDS ORDERED: SODIUM CHLORIDE 0.9% 500 ML IV ONE (22:00)
[2022-12-28] MEDS: NOREPINEPHRINE 8 MG/250ML KIT 250 ML IV SCH (22:15)
[2022-12-28] MEDS ORDERED: NOREPINEPHRINE 8 MG/250ML KIT 250 ML IV ONE (22:19)
[2022-12-28] MEDS: SODIUM CHLORIDE 0.9% 1,000 ML IV SCH (22:30)
[2022-12-28 22:40] LABS: Urine Bacteria NONE SEEN /hpf (None Seen); Urine Blood Negative /uL (Negative); Urine Hyaline Cast MOD /lpf (0 - 2); Urine Mucus FEW (None Seen); Urine Specific Gravity 1.019 (1.001-1.035); Urine WBC 2 /hpf (0 - 3)
[2022-12-28] MEDS ORDERED: SUCCINYLCHOLINE CHLORIDE 20 MG/ML 10ML VIAL IV ONE ×2 (22:47)
[2022-12-28] MEDS ORDERED: ETOMIDATE (2MG/ML) 20ML VIAL IV ONE (22:48)
[2022-12-28] MEDS ORDERED: LORazepam 2MG/ML-1ML VIAL IV PRN (23:00)
[2022-12-28] MEDS: fentaNYL Drip 2500mCg/250mlNS 250 ML IV SCH (23:00)
[2022-12-28] MEDS: MIDAZOLAM DRIP 50 mg/50mL 50 ML IV SCH (23:30)
[2022-12-29] VITALS (112 sets, daily range): BP systolic 75–134; BP diastolic 35–85
[2022-12-29] MEDS ORDERED: ETOMIDATE (2MG/ML) 20ML VIAL IV ONE
[2022-12-29] MEDS ORDERED: SUCCINYLCHOLINE CHLORIDE 20 MG/ML 10ML VIAL IV ONE
[2022-12-29] MEDS ORDERED: EPINEPHrine HCL 250 ML IV ONE (00:11)
[2022-12-29] MEDS ORDERED: PHENYLEPHRINE IV 250 ML IV ONE (00:21)
[2022-12-29] MEDS ORDERED: POTASSIUM CHL 20MEQ/100ML 100 ML IV ONE (00:30)
[2022-12-29] MEDS: PHENYLEPHRINE IV 250 ML IV SCH ×4 (00:40→06:54)
[2022-12-29 01:05] LABS: Mean Corpuscular Hgb Conc. 35.2 g/dL (32.0-36.0); Mean Corpuscular Volume 102.2 fL (80.0-100.0)
[2022-12-29 01:10] LABS: Hematocrit 20.9 % (41.0-53.0); Hemoglobin 7.4 g/dL (13.5-17.5); Red Blood Cells 2.05 10^6/uL (4.5-5.90); Red Cell Distribution Width 16.6 % (11.8-14.3)
[2022-12-29 01:13] LABS: Basophils % (manual) 0 (0.0-2.0); Blast Cells 0; Eosinophils % (manual) 0 (0-7); Metamyelocytes % 0; Myelocytes % 0; Promyelocytes % 0; Reactive Lymphocytes 0
[2022-12-29 01:16] LABS: INR 0.97 (0.9-1.15)
[2022-12-29 01:18] LABS: BUN/Creatinine Ratio 16.7 (10.0-20.0); Calcium 7.5 mg/dL (8.5-10.1)
[2022-12-29 01:21] LABS: Bilirubin, Total 0.8 mg/dL (0.2-1.0); Total Protein 5.2 g/dL (6.4-8.2)
[2022-12-29] MEDS: EPINEPHrine HCL 250 ML IV SCH (01:30)
[2022-12-29 02:28] LABS: Potassium 2.8 mmol/L (3.5-5.1)
[2022-12-29 02:40] LABS: Band Neutrophils % (manual) 3; Lymphocytes % (manual) 12 (10.0-50.0); Monocytes % (manual) 27 (0-12)
[2022-12-29] MEDS: NOREPINEPHRINE 8 MG/250ML KIT 250 ML IV SCH ×3 (03:22→12:44)
[2022-12-29] MEDS: MIDAZOLAM DRIP 50 mg/50mL 50 ML IV SCH ×3 (03:23→15:51)
[2022-12-29] MEDS: SODIUM CHLORIDE 0.9% 1,000 ML IV SCH ×6 (05:27→23:00)
[2022-12-29] MEDS: GABAPENTIN 400 MG CAP NG SCH ×3 (06:00→22:00)
[2022-12-29] MEDS: SPIRONOLACTONE 25 MG TAB NG SCH ×2 (06:00→18:00)
[2022-12-29] MEDS ORDERED: chlordiazePOXIDE HCL 25 MG CAP NG SCH (06:00)
[2022-12-29] MEDS ORDERED: FUROSEMIDE 40 MG TAB NG SCH (07:00)
[2022-12-29] MEDS: POTASSIUM CHL 20MEQ/100ML 100 ML IV SCH ×3 (08:30→12:04)
[2022-12-29] MEDS: FOLIC ACID 1 MG TAB NG SCH (10:00)
[2022-12-29] MEDS: NEOMYCIN-BACITRACIN-POLYM UNITDOSE PKG TOP OINT TOP SCH ×3 (10:00→22:00)
[2022-12-29] MEDS: LACTULOSE 20Gm/30ML SOLN NG SCH (10:00)
[2022-12-29] MEDS: PANTOPRAZOLE 40 MG/10 ML VIAL INJ IV SCH (10:09)
[2022-12-29] MEDS: FUROSEMIDE 40 MG/4 ML VIAL IV SCH (10:09)
[2022-12-29] MEDS: FOLIC ACID 1 MG, MULTIPLE VITAMIN 10 ML, MAGNESIUM SULF SDV 50% 8 MEQ, THIAMINE INJ 100... INJ SCH ×5 (13:47)
[2022-12-29] MEDS: PIPERACILLIN-TAZOB 3.375GM 100 ML IV SCH ×2 (15:29→22:00)
[2022-12-29] MEDS ORDERED: chlordiazePOXIDE HCL 25 MG CAP PO SCH (18:00)
[2022-12-29] MEDS: QUEtiapine FUMARATE 100 MG TAB NG SCH (18:00)
[2022-12-29] MEDS: chlordiazePOXIDE HCL 25 MG CAP NG SCH (18:00)
[2022-12-30] VITALS (109 sets, daily range): BP systolic 94–146; BP diastolic 55–87
[2022-12-30] MEDS: EPINEPHrine HCL 250 ML IV SCH (00:15)
[2022-12-30] MEDS: SODIUM CHLORIDE 0.9% 1,000 ML IV SCH (04:00)
[2022-12-30] MEDS: SPIRONOLACTONE 25 MG TAB NG SCH ×2 (06:00→18:00)
[2022-12-30] MEDS: GABAPENTIN 400 MG CAP NG SCH ×3 (06:00→22:00)
[2022-12-30] MEDS: PIPERACILLIN-TAZOB 3.375GM 100 ML IV SCH ×3 (06:00→22:38)
[2022-12-30] MEDS: chlordiazePOXIDE HCL 25 MG CAP NG SCH (06:00)
[2022-12-30 09:11] LABS: Albumin 1.8 g/dL (3.4-5.0); Calcium 6.9 mg/dL (8.5-10.1)
[2022-12-30] MEDS: MIDAZOLAM DRIP 50 mg/50mL 50 ML IV SCH (09:13)
[2022-12-30 09:14] LABS: BUN/Creatinine Ratio 10.7 (10.0-20.0); Bilirubin, Total 0.8 mg/dL (0.2-1.0); Total Protein 5.1 g/dL (6.4-8.2); White Blood Cell 5.1 10^3/uL (4.4-10.8)
[2022-12-30 09:25] LABS: Potassium 2.8 mmol/L (3.5-5.1)
[2022-12-30 09:27] LABS: Hematocrit 20.1 % (41.0-53.0); Mean Corpuscular Hemoglobin 35.3 pg (28.0-32.0); Mean Corpuscular Hgb Conc. 33.9 g/dL (32.0-36.0); Mean Corpuscular Volume 104.2 fL (80.0-100.0); Red Blood Cells 1.93 10^6/uL (4.5-5.90); Red Cell Distribution Width 16.7 % (11.8-14.3)
[2022-12-30 09:33] LABS: Hemoglobin 6.8 g/dL (13.5-17.5)
[2022-12-30 09:37] LABS: Basophils % (manual) 0 (0.0-2.0); Blast Cells 0; Metamyelocytes % 0; Myelocytes % 0; Promyelocytes % 0; Reactive Lymphocytes 0
[2022-12-30] MEDS: PHENYLEPHRINE IV 250 ML IV SCH ×2 (09:50→18:10)
[2022-12-30] MEDS: FOLIC ACID 1 MG TAB NG SCH (10:00)
[2022-12-30] MEDS: NEOMYCIN-BACITRACIN-POLYM UNITDOSE PKG TOP OINT TOP SCH ×2 (10:00→22:38)
[2022-12-30] MEDS: LACTULOSE 20Gm/30ML SOLN NG SCH (10:00)
[2022-12-30] MEDS: PANTOPRAZOLE 40 MG/10 ML VIAL INJ IV SCH (10:24)
[2022-12-30 10:25] LABS: Band Neutrophils % (manual) 2; Eosinophils % (manual) 1 (0-7); Lymphocytes % (manual) 6 (10.0-50.0); Monocytes % (manual) 14 (0-12)
[2022-12-30] MEDS: POTASSIUM CHL 20MEQ/100ML 100 ML IV SCH ×3 (10:59→14:57)
[2022-12-30] MEDS: FUROSEMIDE 40 MG/4 ML VIAL IV SCH (12:14)
[2022-12-30] MEDS: fentaNYL Drip 2500mCg/250mlNS 250 ML IV SCH ×2 (14:42→23:00)
[2022-12-30] MEDS: FOLIC ACID 1 MG, MULTIPLE VITAMIN 10 ML, MAGNESIUM SULF SDV 50% 8 MEQ, THIAMINE INJ 100... INJ SCH ×5 (15:07)
[2022-12-30] MEDS: NOREPINEPHRINE 8 MG/250ML KIT 250 ML IV SCH (15:55)
[2022-12-30] MEDS: QUEtiapine FUMARATE 100 MG TAB NG SCH (18:00)
[2022-12-31] VITALS (75 sets, daily range): BP systolic 79–162; BP diastolic 46–91
[2022-12-31] MEDS: EPINEPHrine HCL 250 ML IV SCH (00:15)
[2022-12-31] MEDS: PHENYLEPHRINE IV 250 ML IV SCH ×2 (02:30→10:50)
[2022-12-31 03:31] LABS: Hemoglobin 8.1 g/dL (13.5-17.5)
[2022-12-31 03:33] LABS: Hematocrit 22.9 % (41.0-53.0); Mean Corpuscular Hemoglobin 34.8 pg (28.0-32.0); Mean Corpuscular Hgb Conc. 35.2 g/dL (32.0-36.0); Mean Corpuscular Volume 98.9 fL (80.0-100.0); Red Blood Cells 2.32 10^6/uL (4.5-5.90); Red Cell Distribution Width 16.6 % (11.8-14.3); White Blood Cell 4.7 10^3/uL (4.4-10.8)
[2022-12-31 03:35] LABS: Basophils % (manual) 0 (0.0-2.0); Blast Cells 0; Eosinophils % (manual) 0 (0-7); Metamyelocytes % 0; Myelocytes % 0; Promyelocytes % 0; Reactive Lymphocytes 0
[2022-12-31 03:49] LABS: Albumin 1.8 g/dL (3.4-5.0); Calcium 7.5 mg/dL (8.5-10.1)
[2022-12-31 03:53] LABS: Bilirubin, Total 0.9 mg/dL (0.2-1.0)
[2022-12-31 04:26] LABS: Band Neutrophils % (manual) 8; Lymphocytes % (manual) 14 (10.0-50.0); Monocytes % (manual) 21 (0-12)
[2022-12-31] MEDS: SPIRONOLACTONE 25 MG TAB NG SCH ×2 (06:00→17:42)
[2022-12-31] MEDS: GABAPENTIN 400 MG CAP NG SCH ×3 (06:00→22:57)
[2022-12-31] MEDS: PIPERACILLIN-TAZOB 3.375GM 100 ML IV SCH ×3 (06:43→22:56)
[2022-12-31] MEDS ORDERED: chlordiazePOXIDE HCL 25 MG CAP PO SCH (07:00)
[2022-12-31] MEDS ORDERED: POTASSIUM CHLORIDE 40 MEQ, LIDOCAINE 1% (LOCAL ANESTH.) 4 ML in SODIUM CHL 0.9% 250 ML IV ONE (08:15)
[2022-12-31] MEDS ORDERED: IOHEXOL 350 MG/ML 100ML IJ ONE (09:06)
[2022-12-31] MEDS: NEOMYCIN-BACITRACIN-POLYM UNITDOSE PKG TOP OINT TOP SCH ×2 (09:28→22:57)
[2022-12-31] MEDS: PANTOPRAZOLE 40 MG/10 ML VIAL INJ IV SCH (09:28)
[2022-12-31] MEDS: LACTULOSE 20Gm/30ML SOLN NG SCH (09:28)
[2022-12-31] MEDS: FUROSEMIDE 40 MG/4 ML VIAL IV SCH (09:28)
[2022-12-31] MEDS: FOLIC ACID 1 MG TAB NG SCH (09:28)
[2022-12-31] MEDS: FOLIC ACID 1 MG, MULTIPLE VITAMIN 10 ML, MAGNESIUM SULF SDV 50% 8 MEQ, THIAMINE INJ 100... INJ SCH ×5 (13:13)
[2022-12-31] MEDS ORDERED: LIDOCAINE 1% (LOCAL ANESTH.) PF 5ml SDV ID ONE (15:45)
[2022-12-31] MEDS: NOREPINEPHRINE 8 MG/250ML KIT 250 ML IV SCH (16:15)
[2022-12-31] MEDS: HYDROcodone-ACET 5/325MG TAB PO PRN ×2 (16:27→22:59)
[2022-12-31] MEDS: QUEtiapine FUMARATE 100 MG TAB NG SCH ×2 (17:43→22:58)
[2022-12-31] MEDS ORDERED: ACETAMINOPHEN 325 MG TAB PO ONE (18:00)
[2022-12-31] MEDS ORDERED: POTASSIUM CHL 20MEQ/100ML 100 ML IV SCH (20:00)
[2022-12-31] MEDS: SODIUM CHLOR 0.9% PF (SALINE LOCK) 10ML VIAL/SYR IV SCH (22:55)
[2023-01-01] VITALS (45 sets, daily range): BP systolic 85–121; BP diastolic 47–73
[2023-01-01] MEDS: PHENYLEPHRINE IV 250 ML IV SCH ×2 (03:30→07:48)
[2023-01-01] MEDS: GABAPENTIN 400 MG CAP NG SCH (06:00)
[2023-01-01] MEDS: PIPERACILLIN-TAZOB 3.375GM 100 ML IV SCH ×3 (06:20→21:46)
[2023-01-01] MEDS: SPIRONOLACTONE 25 MG TAB NG SCH ×2 (06:20→18:07)
[2023-01-01] MEDS: HYDROcodone-ACET 5/325MG TAB PO PRN (06:23)
[2023-01-01 06:48] LABS: Basophils # (auto) 0 10 ^3/uL (0-0.2); Basophils % (auto) 0.4 % (0.0-2.0); Calcium 7.9 mg/dL (8.5-10.1); Eosinophils # (auto) 0.1 10 ^3/uL (0-0.8); Hemoglobin 8.5 g/dL (13.5-17.5); Lymphocytes # (auto) 0.6 10 ^3/uL (0.4-5.4); Monocytes # (auto) 1.4 10 ^3/uL (0-1.3); Potassium 3.6 mmol/L (3.5-5.1)
[2023-01-01 06:52] LABS: Bilirubin, Total 0.8 mg/dL (0.2-1.0); Eosinophils % (auto) 0.7 % (0.0-7.0); Hematocrit 25.2 % (41.0-53.0); Lymphocytes % (auto) 7.3 % (10.0-50.0); Mean Corpuscular Hemoglobin 33.9 pg (28.0-32.0); Mean Corpuscular Hgb Conc. 33.8 g/dL (32.0-36.0); Mean Corpuscular Volume 100.5 fL (80.0-100.0); Monocytes % (auto) 16.9 % (0.0-12.0); Neutrophils # (auto) 6.1 10 ^3/uL (1.6-8.6); Neutrophils % (auto) 74.7 % (37.0-80.0); Nucleated Red Blood Cells % 0.2 %; Red Blood Cells 2.51 10^6/uL (4.5-5.90); Red Cell Distribution Width 15.9 % (11.8-14.3); Total Protein 5.5 g/dL (6.4-8.2); White Blood Cell 8.1 10^3/uL (4.4-10.8)
[2023-01-01 06:59] LABS: BUN/Creatinine Ratio 18.6 (10.0-20.0)
[2023-01-01] MEDS: fentaNYL Drip 2500mCg/250mlNS 250 ML IV SCH (07:47)
[2023-01-01] MEDS: MIDAZOLAM DRIP 50 mg/50mL 50 ML IV SCH (07:47)
[2023-01-01] MEDS: EPINEPHrine HCL 250 ML IV SCH (07:48)
[2023-01-01] MEDS ORDERED: GABAPENTIN 400 MG CAP PO ONE ×2 (08:23→08:25)
[2023-01-01] MEDS ORDERED: oxyCODONE ER 20 MG TAB PO SCH (10:00)
[2023-01-01] MEDS: LACTULOSE 20Gm/30ML SOLN NG SCH (10:22)
[2023-01-01] MEDS: PANTOPRAZOLE 40 MG/10 ML VIAL INJ IV SCH (10:22)
[2023-01-01] MEDS: POTASSIUM CHL 20 Meq TABLET PO SCH (10:22)
[2023-01-01] MEDS: NEOMYCIN-BACITRACIN-POLYM UNITDOSE PKG TOP OINT TOP SCH ×2 (10:23→21:47)
[2023-01-01] MEDS: FOLIC ACID 1 MG TAB NG SCH (10:23)
[2023-01-01] MEDS: FUROSEMIDE 40 MG/4 ML VIAL IV SCH (10:23)
[2023-01-01] MEDS: SODIUM CHLOR 0.9% PF (SALINE LOCK) 10ML VIAL/SYR IV SCH ×2 (10:24→21:46)
[2023-01-01] MEDS: FOLIC ACID 1 MG, MULTIPLE VITAMIN 10 ML, MAGNESIUM SULF SDV 50% 8 MEQ, THIAMINE INJ 100... INJ SCH ×5 (13:28)
[2023-01-01] MEDS: GABAPENTIN 300 MG CAP PO SCH ×2 (14:17→21:47)
[2023-01-01] MEDS: oxyCODONE ER 20 MG TAB PO SCH (18:19)
[2023-01-01] MEDS ORDERED: QUEtiapine FUMARATE 100 MG TAB NG SCH (22:00)
[2023-01-02 05:00] VITALS: BP 103/48
[2023-01-02 05:51] LABS: Hemoglobin 8.2 g/dL (13.5-17.5); White Blood Cell 5.9 10^3/uL (4.4-10.8)
[2023-01-02 05:57] LABS: Hematocrit 23.8 % (41.0-53.0); Mean Corpuscular Hemoglobin 34.4 pg (28.0-32.0); Mean Corpuscular Hgb Conc. 34.3 g/dL (32.0-36.0); Mean Corpuscular Volume 100.4 fL (80.0-100.0); Red Blood Cells 2.37 10^6/uL (4.5-5.90); Red Cell Distribution Width 16.2 % (11.8-14.3)
[2023-01-02] MEDS: PIPERACILLIN-TAZOB 3.375GM 100 ML IV SCH ×3 (06:04→23:33)
[2023-01-02] MEDS: oxyCODONE ER 20 MG TAB PO SCH ×2 (06:07→17:44)
[2023-01-02] MEDS: GABAPENTIN 300 MG CAP PO SCH ×4 (06:07→23:37)
[2023-01-02 06:17] LABS: Basophils % (manual) 0 (0.0-2.0); Blast Cells 0; Promyelocytes % 0; Reactive Lymphocytes 0
[2023-01-02 06:18] LABS: Potassium 3.9 mmol/L (3.5-5.1)
[2023-01-02 06:25] LABS: Albumin 1.9 g/dL (3.4-5.0); BUN/Creatinine Ratio 18.3 (10.0-20.0); Bilirubin, Total 0.6 mg/dL (0.2-1.0); Calcium 7.9 mg/dL (8.5-10.1); Total Protein 5.4 g/dL (6.4-8.2)
[2023-01-02 07:58] LABS: Band Neutrophils % (manual) 3; Eosinophils % (manual) 2 (0-7); Lymphocytes % (manual) 17 (10.0-50.0); Metamyelocytes % 1; Monocytes % (manual) 6 (0-12); Myelocytes % 1
[2023-01-02 09:00] VITALS: BP 98/55
[2023-01-02] MEDS: PANTOPRAZOLE 40 MG/10 ML VIAL INJ IV SCH (10:58)
[2023-01-02] MEDS: POTASSIUM CHL 20 Meq TABLET PO SCH (10:59)
[2023-01-02] MEDS: FOLIC ACID 1 MG TAB NG SCH (10:59)
[2023-01-02] MEDS: FUROSEMIDE 40 MG/4 ML VIAL IV SCH (10:59)
[2023-01-02] MEDS: SODIUM CHLOR 0.9% PF (SALINE LOCK) 10ML VIAL/SYR IV SCH ×2 (11:00→23:39)
[2023-01-02] MEDS: LACTULOSE 20Gm/30ML SOLN NG SCH (11:01)
[2023-01-02 13:00] VITALS: BP 99/61
[2023-01-02] MEDS: FOLIC ACID 1 MG, MULTIPLE VITAMIN 10 ML, MAGNESIUM SULF SDV 50% 8 MEQ, THIAMINE INJ 100... INJ SCH ×5 (13:56)
[2023-01-02] MEDS: NEOMYCIN-BACITRACIN-POLYM UNITDOSE PKG TOP OINT TOP SCH ×2 (13:57→23:39)
[2023-01-02 17:00] VITALS: BP 104/55
[2023-01-02] MEDS: SPIRONOLACTONE 25 MG TAB PO SCH (18:00)
[2023-01-02 22:00] VITALS: BP 103/52
[2023-01-02] MEDS ORDERED: QUEtiapine FUMARATE 100 MG TAB NG SCH (22:00)
[2023-01-03 05:00] VITALS: BP 99/55
[2023-01-03] MEDS: GABAPENTIN 300 MG CAP PO SCH ×2 (05:46→12:55)
[2023-01-03] MEDS: PIPERACILLIN-TAZOB 3.375GM 100 ML IV SCH ×2 (05:47→12:55)
[2023-01-03] MEDS: SPIRONOLACTONE 25 MG TAB PO SCH ×2 (05:47→17:37)
[2023-01-03] MEDS: oxyCODONE ER 20 MG TAB PO SCH ×2 (06:08→17:40)
[2023-01-03 09:00] VITALS: BP 100/47
[2023-01-03] MEDS: LACTULOSE 20Gm/30ML SOLN NG SCH (09:23)
[2023-01-03] MEDS: FUROSEMIDE 40 MG/4 ML VIAL IV SCH (09:23)
[2023-01-03] MEDS: PANTOPRAZOLE 40 MG/10 ML VIAL INJ IV SCH (09:24)
[2023-01-03] MEDS: SODIUM CHLOR 0.9% PF (SALINE LOCK) 10ML VIAL/SYR IV SCH (09:25)
[2023-01-03] MEDS: FOLIC ACID 1 MG TAB NG SCH (09:25)
[2023-01-03] MEDS: POTASSIUM CHL 20 Meq TABLET PO SCH (09:26)
[2023-01-03] MEDS: NEOMYCIN-BACITRACIN-POLYM UNITDOSE PKG TOP OINT TOP SCH (09:26)
[2023-01-03] MEDS: FOLIC ACID 1 MG, MULTIPLE VITAMIN 10 ML, MAGNESIUM SULF SDV 50% 8 MEQ, THIAMINE INJ 100... INJ SCH ×5 (11:20)
[2023-01-03 13:00] VITALS: BP 107/54
[2023-01-03 17:00] VITALS: BP_SYST 100; BP_SYST 99; BP_DIAS 48; BP_DIAS 52
== END 2023-01-03 18:58 | DRG 551 ==
LOC: ER 04:20 → EDBD 04:20 → OVERFLOW 09:43 → EAST 14:22 → ICU WEST 12-28 22:43 → TELE-WESTW 01-01 22:59
PROVIDERS: ADMIT Nurse Practitioner Family; ATTEND Internal Medicine
PROC: 5A1945Z Respiratory Ventilation, 24-96 Consecutive Hours (ICD-10-PCS; principal; 2022-12-29)
PROC: 0BH18EZ Insertion of Endotracheal Airway into Trachea, Via Natural or Artificial Opening Endoscopic (ICD-10-PCS; 2022-12-29)
PROC: 30233N1 Transfusion of Nonautologous Red Blood Cells into Peripheral Vein, Percutaneous Approach (ICD-10-PCS; 2022-12-30)
PROC: 02HV33Z Insertion of Infusion Device into Superior Vena Cava, Percutaneous Approach (ICD-10-PCS; 2022-12-31)
PROC: B548ZZA Ultrasonography of Superior Vena Cava, Guidance (ICD-10-PCS; 2022-12-31)
DX: M54.50 Low back pain, unspecified (principal); J69.0 Pneumonitis due to inhalation of food and vomit; J96.01 Acute respiratory failure with hypoxia; D62 Acute posthemorrhagic anemia; E87.1 Hypo-osmolality and hyponatremia; J98.11 Atelectasis; K70.30 Alcoholic cirrhosis of liver without ascites; D69.59 Other secondary thrombocytopenia; S80.02XA Contusion of left knee, initial encounter; S80.01XA Contusion of right knee, initial encounter; F10.10 Alcohol abuse, uncomplicated; D63.8 Anemia in other chronic diseases classified elsewhere; W01.0XXA Fall on same level from slipping, tripping and stumbling without subsequent striking against object, initial encounter; F41.9 Anxiety disorder, unspecified; G62.9 Polyneuropathy, unspecified; G89.29 Other chronic pain; I11.0 Hypertensive heart disease with heart failure; I50.9 Heart failure, unspecified; Z20.822 Contact with and (suspected) exposure to COVID-19; K21.9 Gastro-esophageal reflux disease without esophagitis; F20.9 Schizophrenia, unspecified; R29.6 Repeated falls; E87.8 Other disorders of electrolyte and fluid balance, not elsewhere classified; E87.6 Hypokalemia; Y93.89 Activity, other specified; Y99.8 Other external cause status; Y92.098 Other place in other non-institutional residence as the place of occurrence of the external cause; Z79.899 Other long term (current) drug therapy; Z80.3 Family history of malignant neoplasm of breast; Z83.3 Family history of diabetes mellitus; Z80.42 Family history of malignant neoplasm of prostate; Z90.49 Acquired absence of other specified parts of digestive tract
CPT/HCPCS: 36415; 36569; 36600; 70450; 71045; 71275; 72131; 80053; 81001; 82140; 82570; 82805; 83605; 83930; 83935; 84300; 84484; 85007; 85025; 85027; 85379; 85610; 85730; 86850; 86900; 86901; 86920; 87040; 87070; 87081; 87086; 87205; 87426; 93970; 94002; 94003; 94640; 96361; 96374; A4618; C9113; G0378; J0171; J0330; J1885; J2001; J2250; J2543; J3480; J7060

== ENCOUNTER 2023-02-28 14:00 | Emergency (ER) | payer MEDICARE, MEDICAID ==
[~2023-02-28] VITALS: Ht 188 cm; Wt 84.0 kg
[2023-02-28] MEDS ORDERED: FOLIC ACID 1 MG, MULTIPLE VITAMIN 10 ML, MAGNESIUM SULF SDV 50% 8 MEQ, THIAMINE INJ 100... INJ SCH ×10 (14:42→16:23)
[2023-02-28 14:49] VITALS: PULSE 118; RESP 14; O2SAT 100
[2023-02-28] MEDS ORDERED: THIAMINE 100mg/ml INJ (200mg/2ml VIAL) IV ONE (15:00)
[2023-02-28 15:38] LABS: Urine Bacteria NONE SEEN /hpf (None Seen); Urine Blood Negative /uL (Negative); Urine Mucus FEW (None Seen); Urine Specific Gravity 1.019 (1.001-1.035); Urine WBC <1 /hpf (0 - 3)
[2023-02-28 15:43] LABS: Barbiturate Scree,Urine NEGATIVE (NEGATIVE); Cannabinoid Screen, Urine NEGATIVE (NEGATIVE)
[2023-02-28 15:52] LABS: Amphetamine Screen, Urine NEGATIVE (NEGATIVE); Benzodiazephine Screen, Urine NEGATIVE (NEGATIVE); Cocaine Screen, Urine NEGATIVE (NEGATIVE); Opiate Scree,Urine NEGATIVE (NEGATIVE); Phencyclidine Screen, Urine NEGATIVE (NEGATIVE)
[2023-02-28 16:06] LABS: Basophils # (auto) 0 10 ^3/uL (0-0.2); Basophils % (auto) 0.3 % (0.0-2.0); Eosinophils # (auto) 0 10 ^3/uL (0-0.8); Hematocrit 37.7 % (41.0-53.0); Hemoglobin 12.7 g/dL (13.5-17.5); Lymphocytes # (auto) 0.9 10 ^3/uL (0.4-5.4); Lymphocytes % (auto) 10.1 % (10.0-50.0); Mean Corpuscular Hemoglobin 32.7 pg (28.0-32.0); Mean Corpuscular Hgb Conc. 33.7 g/dL (32.0-36.0); Mean Corpuscular Volume 97.2 fL (80.0-100.0); Monocytes # (auto) 0.6 10 ^3/uL (0-1.3); Monocytes % (auto) 6.8 % (0.0-12.0); Neutrophils # (auto) 7.6 10 ^3/uL (1.6-8.6); Neutrophils % (auto) 82.8 % (37.0-80.0); Nucleated Red Blood Cells % 0.1 %; Red Blood Cells 3.88 10^6/uL (4.5-5.90); Red Cell Distribution Width 16.1 % (11.8-14.3); White Blood Cell 9.2 10^3/uL (4.4-10.8)
[2023-02-28 16:25] LABS: Albumin 3.3 g/dL (3.4-5.0); Calcium 8.1 mg/dL (8.5-10.1); Magnesium 2.7 mg/dL (1.6-2.6)
[2023-02-28 16:33] LABS: BUN/Creatinine Ratio 21.4 (10.0-20.0); Bilirubin, Total 0.6 mg/dL (0.2-1.0); Total Protein 6.9 g/dL (6.4-8.2)
[2023-02-28 19:11] VITALS: BP 113/73
[2023-02-28 19:45] VITALS: PULSE 120; RESP 18; O2SAT 96
[2023-03-01] MEDS ORDERED: FOLIC ACID 1 MG, MULTIPLE VITAMIN 10 ML, MAGNESIUM SULF SDV 50% 8 MEQ, THIAMINE INJ 100... INJ SCH ×5 (12:00)
== END 2023-02-28 20:48 | disposition home or self-care (01) ==
LOC: EDBD 14:00 → ER 14:00
DX: F10.121 Alcohol abuse with intoxication delirium (principal); M25.512 Pain in left shoulder; M54.50 Low back pain, unspecified; F41.9 Anxiety disorder, unspecified; K21.9 Gastro-esophageal reflux disease without esophagitis; I10 Essential (primary) hypertension; F20.9 Schizophrenia, unspecified; F17.210 Nicotine dependence, cigarettes, uncomplicated; Z90.49 Acquired absence of other specified parts of digestive tract; Z98.890 Other specified postprocedural states; Z88.6 Allergy status to analgesic agent; Z79.899 Other long term (current) drug therapy; Y90.0 Blood alcohol level of less than 20 mg/100 ml
CPT/HCPCS: 36415; 80053; 80307; 80320; 81001; 83735; 85025; 96365; 96366; 96376; 99285; J3411; J3475; J7070

== ENCOUNTER 2023-06-13 09:44 | Emergency (ER) | payer MEDICARE, MEDICAID ==
[~2023-06-13] VITALS: Ht 177.8 cm; Wt 80.0 kg
[2023-06-13] MEDS ORDERED: SODIUM CHLORIDE 0.9% 1,000 ML IV ONE ×2 (10:30)
[2023-06-13] MEDS ORDERED: THIAMINE 100mg/ml INJ (200mg/2ml VIAL) IV ONE (10:30)
[2023-06-13 11:38] VITALS: BP 104/78; PULSE 113; RESP 17; TEMP 98.7; O2SAT 95
[2023-06-13 11:45] LABS: Basophils # (auto) 0 10 ^3/uL (0-0.2); Basophils % (auto) 0.2 % (0.0-2.0); Eosinophils # (auto) 0 10 ^3/uL (0-0.8); Lymphocytes # (auto) 0.7 10 ^3/uL (0.4-5.4); Monocytes # (auto) 0.3 10 ^3/uL (0-1.3); Nucleated Red Blood Cells % 0.1 %
[2023-06-13 11:47] LABS: Eosinophils % (auto) 0.1 % (0.0-7.0); Hematocrit 44.2 % (41.0-53.0); Hemoglobin 14.5 g/dL (13.5-17.5); Mean Corpuscular Hemoglobin 34.2 pg (28.0-32.0); Mean Corpuscular Hgb Conc. 32.9 g/dL (32.0-36.0); Mean Corpuscular Volume 104.2 fL (80.0-100.0); Monocytes % (auto) 6.3 % (0.0-12.0); Neutrophils # (auto) 3.4 10 ^3/uL (1.6-8.6); Neutrophils % (auto) 77.4 % (37.0-80.0); Red Blood Cells 4.24 10^6/uL (4.5-5.90); Red Cell Distribution Width 18.4 % (11.8-14.3); White Blood Cell 4.4 10^3/uL (4.4-10.8)
[2023-06-13 12:12] LABS: Alanine Aminotransferase 47 U/L (7-40); Albumin 3.9 g/dL (3.2-4.8); Alkaline Phosphatase 139 U/L (46-116); Anion Gap 10 (5-15); Aspartate Aminotransferase 60 U/L (13-40); Calcium 8.8 mg/dL (8.5-10.1); Carbon Dioxide 22 mmol/L (20-30); Chloride 100 mmol/L (98-107); Glucose 89 mg/dL (74-106); Sodium 132 mmol/L (136-145)
[2023-06-13 12:13] LABS: Bilirubin, Total 0.4 mg/dL (0.2-1.0); Total Protein 6.8 g/dL (5.7-8.2)
[2023-06-13 12:33] LABS: BUN/Creatinine Ratio 8.2 (10.0-20.0); Blood Urea Nitrogen < 5 mg/dL (9-23)
== END 2023-06-13 11:59 | disposition left against medical advice (07) ==
LOC: ER 09:44 → EDBD 09:44 → ER 11:59
DX: S09.8XXA Other specified injuries of head, initial encounter (principal); K21.9 Gastro-esophageal reflux disease without esophagitis; I10 Essential (primary) hypertension; F17.210 Nicotine dependence, cigarettes, uncomplicated; Z90.49 Acquired absence of other specified parts of digestive tract; Z88.6 Allergy status to analgesic agent; W18.39XA Other fall on same level, initial encounter; Y93.89 Activity, other specified; Y92.89 Other specified places as the place of occurrence of the external cause; Y99.8 Other external cause status
CPT/HCPCS: 36415; 70450; 80053; 84484; 85025; 96360; 99284; J7030

== ENCOUNTER 2023-08-18 05:25 | Inpatient (IN) | payer MEDICARE, MEDICAID ==
[~2023-08-18] VITALS: Ht 185.4 cm; Wt 84.9 kg
[2023-08-18] MEDS ORDERED: SODIUM CHLORIDE 0.9% 1,000 ML IV ONE ×3 (05:45→14:30)
[2023-08-18 06:03] LABS: Basophils # (auto) 0 10 ^3/uL (0-0.2); Eosinophils # (auto) 0 10 ^3/uL (0-0.8); Lymphocytes # (auto) 0.3 10 ^3/uL (0.4-5.4); Monocytes # (auto) 0.3 10 ^3/uL (0-1.3); Neutrophils # (auto) 2.8 10 ^3/uL (1.6-8.6)
[2023-08-18 06:04] LABS: Basophils % (auto) 0.3 % (0.0-2.0); Hematocrit 44.4 % (41.0-53.0); Lymphocytes % (auto) 9.8 % (10.0-50.0); Mean Corpuscular Hemoglobin 36.3 pg (28.0-32.0); Mean Corpuscular Hgb Conc. 33.7 g/dL (32.0-36.0); Mean Corpuscular Volume 107.8 fL (80.0-100.0); Monocytes % (auto) 9.2 % (0.0-12.0); Neutrophils % (auto) 80.7 % (37.0-80.0); Red Blood Cells 4.12 10^6/uL (4.5-5.90); Red Cell Distribution Width 14.8 % (11.8-14.3); White Blood Cell 3.4 10^3/uL (4.4-10.8)
[2023-08-18 06:21] LABS: INR 0.93 (0.9-1.15); Prothrombin Time 9.8 sec (9.3-11.8)
[2023-08-18 06:25] LABS: Alanine Aminotransferase 51 U/L (7-40); Albumin 4.1 g/dL (3.2-4.8); Alkaline Phosphatase 137 U/L (46-116); Anion Gap 11 (5-15); Aspartate Aminotransferase 114 U/L (13-40); BUN/Creatinine Ratio 9.5 (10.0-20.0); Blood Urea Nitrogen 7 mg/dL (9-23); Calcium 8.8 mg/dL (8.5-10.1); Carbon Dioxide 24 mmol/L (20-30); Chloride 98 mmol/L (98-107); Glucose 111 mg/dL (74-106); Sodium 133 mmol/L (136-145)
[2023-08-18 06:26] LABS: Bilirubin, Total 0.3 mg/dL (0.2-1.0)
[2023-08-18] MEDS ORDERED: LORazepam 2MG/ML-1ML VIAL IV ONE ×3 (06:30→23:30)
[2023-08-18 06:45] LABS: Blood Alcohol 460.2 mg/dL (<10)
[2023-08-18 06:52] LABS: Urine Epithelial Cast None Seen /hpf (<5)
[2023-08-18 07:11] LABS: Urine Bacteria FEW /hpf (None Seen); Urine Blood 1+ /uL (Negative); Urine Clarity Clear (Clear); Urine Color Yellow (Yellow); Urine Hyaline Cast FEW /lpf (0 - 2); Urine Mucus FEW (None Seen); Urine Protein, UAD 1+ (Negative); Urine Specific Gravity 1.018 (1.001-1.035); Urine Urobilinogen Normal (Negative); Urine WBC <1 /hpf (0 - 3)
[2023-08-18 07:19] LABS: Amphetamine Screen, Urine Neg (NEGATIVE); Barbiturate Scree,Urine Neg (NEGATIVE); Benzodiazephine Screen, Urine Neg (NEGATIVE); Cannabinoid Screen, Urine Neg (NEGATIVE); Cocaine Screen, Urine Neg (NEGATIVE); Opiate Scree,Urine Pos (NEGATIVE); Phencyclidine Screen, Urine Neg (NEGATIVE)
[2023-08-18] MEDS ORDERED: CHL10C PO (08:40)
[2023-08-18 09:20] VITALS: RESP 18; O2SAT 98
[2023-08-18] MEDS ORDERED: LORazepam 2MG/ML-1ML VIAL IM ONE (17:30)
[2023-08-18] MEDS ORDERED: chlordiazePOXIDE HCL 5 MG CAP PO ONE (21:15)
[2023-08-18] MEDS ORDERED: LORazepam 0.5 MG TAB PO ONE (21:15)
[2023-08-18 21:30] VITALS: PULSE 110; RESP 18; O2SAT 94
[2023-08-18] MEDS ORDERED: PANTOPRAZOLE 40 MG/10 ML VIAL INJ IV ONE (23:30)
[2023-08-18] MEDS ORDERED: LORazepam MDV 2MG/ML 50 MG in SODIUM CHL 0.9% 25 ML IV ONE (23:30)
[2023-08-18] MEDS ORDERED: THIAMINE 100mg/ml INJ (200mg/2ml VIAL) IV ONE (23:30)
[2023-08-18] MEDS ORDERED: ONDANSETRON HCL 4 MG/2 ML VIAL IV ONE (23:30)
[2023-08-18] MEDS ORDERED: MVI in SODIUM CHLORIDE 0.9% 1,010 ML IV ONE (23:30)
[2023-08-18 23:58] LABS: Base Excess -1.7 mmol/L (-2.0-2.0)
[2023-08-19] MEDS: MAGNESIUM SULFATE 1GM/100ML 100 ML IV SCH ×2 (00:28→00:30)
[2023-08-19] MEDS ORDERED: NITROGLYCERIN 0.4 MG SL TAB SL PRN (02:45)
[2023-08-19] MEDS ORDERED: MORPHINE SULFATE INJ 2 MG/ml SYRG IV PRN (02:45)
[2023-08-19] MEDS ORDERED: ONDANSETRON HCL 4 MG/2 ML VIAL IV PRN (02:45)
[2023-08-19] MEDS ORDERED: chlordiazePOXIDE HCL 25 MG CAP PO PRN ×2 (02:45→04:15)
[2023-08-19 03:03] LABS: Basophils # (auto) 0 10 ^3/uL (0-0.2); Basophils % (auto) 0.1 % (0.0-2.0); Eosinophils # (auto) 0 10 ^3/uL (0-0.8); Hemoglobin 13.7 g/dL (13.5-17.5); Mean Corpuscular Volume 109.6 fL (80.0-100.0); Monocytes # (auto) 0.6 10 ^3/uL (0-1.3); Monocytes % (auto) 12.3 % (0.0-12.0); Neutrophils # (auto) 3.8 10 ^3/uL (1.6-8.6); White Blood Cell 4.5 10^3/uL (4.4-10.8)
[2023-08-19 03:05] LABS: Lymphocytes # (auto) 0.2 10 ^3/uL (0.4-5.4); Lymphocytes % (auto) 3.3 % (10.0-50.0); Mean Corpuscular Hemoglobin 36.5 pg (28.0-32.0); Mean Corpuscular Hgb Conc. 33.3 g/dL (32.0-36.0); Neutrophils % (auto) 84.3 % (37.0-80.0); Red Blood Cells 3.74 10^6/uL (4.5-5.90); Red Cell Distribution Width 14.7 % (11.8-14.3)
[2023-08-19 03:27] LABS: Alanine Aminotransferase 43 U/L (7-40); Albumin 3.8 g/dL (3.2-4.8); Alkaline Phosphatase 130 U/L (46-116); Anion Gap 9 (5-15); Aspartate Aminotransferase 76 U/L (13-40); BUN/Creatinine Ratio 8.6 (10.0-20.0); Bilirubin, Total 1.4 mg/dL (0.2-1.0); Blood Urea Nitrogen 5 mg/dL (9-23); Calcium 8.7 mg/dL (8.7-10.4); Carbon Dioxide 22 mmol/L (20-30); Chloride 104 mmol/L (98-107); Glucose 128 mg/dL (74-106); Potassium 2.9 mmol/L (3.5-5.1); Sodium 135 mmol/L (136-145); Total Protein 6.6 g/dL (5.7-8.2)
[2023-08-19 07:30] VITALS: PULSE 116; RESP 21; O2SAT 99
[2023-08-19] MEDS ORDERED: POTASSIUM CHL 20MEQ/100ML 100 ML IV ONE (07:45)
[2023-08-19] MEDS: LORazepam 2MG/ML-1ML VIAL IV PRN ×3 (08:05→22:59)
[2023-08-19] MEDS: SPIRONOLACTONE 25 MG TAB PO SCH (11:06)
[2023-08-19] MEDS: DULoxetine HCL 30 MG CAP PO SCH (11:07)
[2023-08-19] MEDS: GABAPENTIN 300 MG CAP PO SCH ×2 (11:07→22:05)
[2023-08-19] MEDS: CITALOPRAM HYDROBR 20 MG TAB PO SCH (11:07)
[2023-08-19] MEDS ORDERED: chlordiazePOXIDE HCL 25 MG CAP PO SCH (12:15)
[2023-08-19] MEDS: SODIUM CHLORIDE 0.9% 1,000 ML IV SCH ×2 (13:26→21:03)
[2023-08-19] MEDS: FOLIC ACID 1 MG, MAGNESIUM SULF SDV 50% 8 MEQ, MULTIPLE VITAMIN 10 ML, THIAMINE INJ 100... INJ SCH ×5 (18:33)
[2023-08-19] MEDS: QUEtiapine FUMARATE 100 MG TAB PO SCH (22:05)
[2023-08-19 22:39] LABS: Chloride 108 mmol/L (98-107); Potassium 2.9 mmol/L (3.5-5.1); Sodium 139 mmol/L (136-145)
[2023-08-19 22:40] LABS: Anion Gap 10 (5-15); Calcium 8.5 mg/dL (8.7-10.4); Carbon Dioxide 21 mmol/L (20-30)
[2023-08-19 22:45] LABS: BUN/Creatinine Ratio 19.2 (10.0-20.0); Blood Urea Nitrogen 10 mg/dL (9-23); Glucose 86 mg/dL (74-106)
[2023-08-19] MEDS ORDERED: POTASSIUM CHLORIDE 40 MEQ, LIDOCAINE 1% (LOCAL ANESTH.) 4 ML in SODIUM CHL 0.9% 250 ML IV ONE (23:00)
[2023-08-19] MEDS ORDERED: POTASSIUM CHL 20MEQ/100ML 200 ML IV ONE (23:26)
[2023-08-19] MEDS: POTASSIUM CHL 20MEQ/100ML 100 ML IV SCH (23:40)
[2023-08-20] VITALS (7 sets, daily range): BP systolic 130–150; BP diastolic 81–90; PULSE 73–110; RESP 18–20; TEMP 97.4–98.7; O2SAT 93–98
[2023-08-20] MEDS: POTASSIUM CHL 20MEQ/100ML 100 ML IV SCH (01:43)
[2023-08-20] MEDS: SODIUM CHLORIDE 0.9% 1,000 ML IV SCH ×3 (09:16→16:30)
[2023-08-20 09:21] LABS: Basophils # (auto) 0 10 ^3/uL (0-0.2); Eosinophils # (auto) 0 10 ^3/uL (0-0.8); Eosinophils % (auto) 0.2 % (0.0-7.0); Lymphocytes # (auto) 0.3 10 ^3/uL (0.4-5.4); Mean Corpuscular Hemoglobin 36.4 pg (28.0-32.0); Monocytes # (auto) 0.3 10 ^3/uL (0-1.3); Neutrophils # (auto) 2.7 10 ^3/uL (1.6-8.6)
[2023-08-20 09:23] LABS: Basophils % (auto) 0.2 % (0.0-2.0); Hematocrit 35.8 % (41.0-53.0); Hemoglobin 11.9 g/dL (13.5-17.5); Lymphocytes % (auto) 9.2 % (10.0-50.0); Mean Corpuscular Hgb Conc. 33.2 g/dL (32.0-36.0); Mean Corpuscular Volume 109.4 fL (80.0-100.0); Monocytes % (auto) 10.1 % (0.0-12.0); Neutrophils % (auto) 80.3 % (37.0-80.0); Nucleated Red Blood Cells % 0.1 %; Red Blood Cells 3.28 10^6/uL (4.5-5.90); Red Cell Distribution Width 14.3 % (11.8-14.3); White Blood Cell 3.3 10^3/uL (4.4-10.8)
[2023-08-20 09:40] LABS: Alanine Aminotransferase 36 U/L (7-40); Albumin 3.4 g/dL (3.2-4.8); Alkaline Phosphatase 108 U/L (46-116); Anion Gap 11 (5-15); Aspartate Aminotransferase 64 U/L (13-40); BUN/Creatinine Ratio 16.4 (10.0-20.0); Blood Alcohol < 3.0 mg/dL (<10); Blood Urea Nitrogen 9 mg/dL (9-23); Calcium 8.5 mg/dL (8.5-10.1); Carbon Dioxide 21 mmol/L (20-30); Chloride 108 mmol/L (98-107); Glucose 78 mg/dL (74-106); Potassium 2.9 mmol/L (3.5-5.1); Sodium 140 mmol/L (136-145)
[2023-08-20 09:41] LABS: Total Protein 5.8 g/dL (5.7-8.2)
[2023-08-20] MEDS: SPIRONOLACTONE 25 MG TAB PO SCH (10:00)
[2023-08-20] MEDS ORDERED: chlordiazePOXIDE HCL 25 MG CAP PO SCH (10:00)
[2023-08-20] MEDS: DULoxetine HCL 30 MG CAP PO SCH (11:14)
[2023-08-20] MEDS: GABAPENTIN 300 MG CAP PO SCH ×2 (11:15→21:14)
[2023-08-20] MEDS: CITALOPRAM HYDROBR 20 MG TAB PO SCH (11:15)
[2023-08-20 13:07] LABS: Platelet Estimate Decreased
[2023-08-20] MEDS ORDERED: LORazepam 2MG/ML-1ML VIAL IV ONE (16:30)
[2023-08-20] MEDS ORDERED: SODIUM CHLORIDE 0.9% 2,450 ML IV ONE (16:30)
[2023-08-20] MEDS: FOLIC ACID 1 MG, MAGNESIUM SULF SDV 50% 8 MEQ, MULTIPLE VITAMIN 10 ML, THIAMINE INJ 100... INJ SCH ×5 (18:21)
[2023-08-20] MEDS: LORazepam 2MG/ML-1ML VIAL IV PRN ×2 (19:49→22:43)
[2023-08-20] MEDS ORDERED: chlordiazePOXIDE HCL 25 MG CAP PO ONE (20:45)
[2023-08-20] MEDS ORDERED: dilTIAZem 25 MG/5 ML VIAL IV ONE (20:45)
[2023-08-20] MEDS: QUEtiapine FUMARATE 100 MG TAB PO SCH (21:15)
[2023-08-21] VITALS (7 sets, daily range): BP systolic 127–154; BP diastolic 80–100; PULSE 64–110; RESP 20–24; TEMP 98.7–99.8; O2SAT 97–99
[2023-08-21] MEDS: SODIUM CHLORIDE 0.9% 1,000 ML IV SCH ×3 (00:30→15:35)
[2023-08-21 06:36] LABS: Anion Gap 10 (5-15); Carbon Dioxide 21 mmol/L (20-30); Chloride 108 mmol/L (98-107); Potassium 2.5 mmol/L (3.5-5.1); Sodium 139 mmol/L (136-145)
[2023-08-21 06:37] LABS: Calcium 8.2 mg/dL (8.5-10.1)
[2023-08-21 06:42] LABS: BUN/Creatinine Ratio 15.2 (10.0-20.0); Blood Urea Nitrogen 7 mg/dL (9-23); Glucose 86 mg/dL (74-106)
[2023-08-21] MEDS: HYDROcodone-ACET 5/325MG TAB PO PRN (06:42)
[2023-08-21] MEDS ORDERED: POTASSIUM CHL 20 Meq TABLET PO ONE (07:15)
[2023-08-21] MEDS: SPIRONOLACTONE 25 MG TAB PO SCH (08:31)
[2023-08-21] MEDS: DULoxetine HCL 30 MG CAP PO SCH (08:32)
[2023-08-21] MEDS: CITALOPRAM HYDROBR 20 MG TAB PO SCH (08:32)
[2023-08-21] MEDS: GABAPENTIN 300 MG CAP PO SCH ×2 (08:32→21:41)
[2023-08-21] MEDS: LORazepam 2MG/ML-1ML VIAL IV PRN ×3 (08:37→21:42)
[2023-08-21] MEDS ORDERED: chlordiazePOXIDE HCL 25 MG CAP PO SCH (10:00)
[2023-08-21] MEDS ORDERED: QUET150T2 PO (15:16)
[2023-08-21] MEDS ORDERED: DULO1CAP6 PO (15:16)
[2023-08-21] MEDS ORDERED: OXYC325T14 PO (15:23)
[2023-08-21] MEDS: IBUPROFEN 600 MG TAB PO PRN (18:03)
[2023-08-21] MEDS: FOLIC ACID 1 MG, MAGNESIUM SULF SDV 50% 8 MEQ, MULTIPLE VITAMIN 10 ML, THIAMINE INJ 100... INJ SCH ×5 (18:06)
[2023-08-21] MEDS: POTASSIUM EFFERVESENT TAB 25 MEQ GT SCH (21:47)
[2023-08-21] MEDS: QUEtiapine FUMARATE 100 MG TAB PO SCH (22:00)
[2023-08-22] VITALS (8 sets, daily range): BP systolic 124–161; BP diastolic 73–99; PULSE 68–120; RESP 18–73; TEMP 98.1–100.6; O2SAT 96–100
[2023-08-22] MEDS: LORazepam 2MG/ML-1ML VIAL IV PRN ×3 (00:24→22:08)
[2023-08-22] MEDS: SODIUM CHLORIDE 0.9% 1,000 ML IV SCH ×3 (00:30→16:10)
[2023-08-22] MEDS ORDERED: chlordiazePOXIDE HCL 25 MG CAP PO SCH (07:00)
[2023-08-22] MEDS: GABAPENTIN 300 MG CAP PO SCH ×2 (08:47→21:43)
[2023-08-22] MEDS: POTASSIUM EFFERVESENT TAB 25 MEQ GT SCH ×2 (08:47→21:53)
[2023-08-22] MEDS: IBUPROFEN 600 MG TAB PO PRN (08:48)
[2023-08-22] MEDS: DULoxetine HCL 30 MG CAP PO SCH (08:48)
[2023-08-22] MEDS: SPIRONOLACTONE 25 MG TAB PO SCH (08:48)
[2023-08-22] MEDS: CITALOPRAM HYDROBR 20 MG TAB PO SCH (08:49)
[2023-08-22 12:26] LABS: Alanine Aminotransferase 34 U/L (7-40); Albumin 3.4 g/dL (3.2-4.8); Alkaline Phosphatase 94 U/L (46-116); Anion Gap 9 (5-15); Aspartate Aminotransferase 31 U/L (13-40); BUN/Creatinine Ratio 16.3 (10.0-20.0); Blood Urea Nitrogen 7 mg/dL (9-23); Calcium 8.5 mg/dL (8.7-10.4); Carbon Dioxide 21 mmol/L (20-30); Chloride 106 mmol/L (98-107); Glucose 95 mg/dL (74-106); Potassium 3.4 mmol/L (3.5-5.1); Sodium 136 mmol/L (136-145)
[2023-08-22 12:27] LABS: Total Protein 5.9 g/dL (5.7-8.2)
[2023-08-22] MEDS: FOLIC ACID 1 MG, MAGNESIUM SULF SDV 50% 8 MEQ, MULTIPLE VITAMIN 10 ML, THIAMINE INJ 100... INJ SCH ×5 (17:56)
[2023-08-23] VITALS (7 sets, daily range): BP systolic 131–155; BP diastolic 87–99; PULSE 81–92; RESP 16–22; TEMP 97.3–100.4; O2SAT 97–100
[2023-08-23] MEDS: SODIUM CHLORIDE 0.9% 1,000 ML IV SCH ×3 (00:58→16:13)
[2023-08-23 07:03] LABS: Alanine Aminotransferase 32 U/L (7-40); Alkaline Phosphatase 89 U/L (46-116); Anion Gap 9 (5-15); BUN/Creatinine Ratio 12.8 (10.0-20.0); Blood Urea Nitrogen 5 mg/dL (9-23); Carbon Dioxide 21 mmol/L (20-30); Chloride 104 mmol/L (98-107); Glucose 93 mg/dL (74-106); Potassium 3.1 mmol/L (3.5-5.1); Sodium 134 mmol/L (136-145)
[2023-08-23 07:05] LABS: Albumin 3.4 g/dL (3.2-4.8); Aspartate Aminotransferase 27 U/L (13-40); Bilirubin, Total 0.9 mg/dL (0.2-1.0); Total Protein 5.9 g/dL (5.7-8.2)
[2023-08-23] MEDS: HYDROcodone-ACET 5/325MG TAB PO PRN ×2 (07:58→21:34)
[2023-08-23] MEDS: LORazepam 2MG/ML-1ML VIAL IV PRN ×3 (07:59→22:07)
[2023-08-23] MEDS: SPIRONOLACTONE 25 MG TAB PO SCH (10:26)
[2023-08-23] MEDS: CITALOPRAM HYDROBR 20 MG TAB PO SCH (10:26)
[2023-08-23] MEDS: POTASSIUM EFFERVESENT TAB 25 MEQ GT SCH ×2 (10:26→21:35)
[2023-08-23] MEDS: GABAPENTIN 300 MG CAP PO SCH ×2 (10:26→21:34)
[2023-08-23] MEDS: DULoxetine HCL 30 MG CAP PO SCH (10:33)
[2023-08-23] MEDS: FOLIC ACID 1 MG, MAGNESIUM SULF SDV 50% 8 MEQ, MULTIPLE VITAMIN 10 ML, THIAMINE INJ 100... INJ SCH ×5 (18:14)
[2023-08-23] MEDS: QUEtiapine FUMARATE 100 MG TAB PO SCH (21:35)
[2023-08-24] VITALS (11 sets, daily range): BP systolic 131–152; BP diastolic 77–97; PULSE 95–115; RESP 16–20; TEMP 98–102.5; O2SAT 96–100
[2023-08-24] MEDS: SODIUM CHLORIDE 0.9% 1,000 ML IV SCH ×3 (00:20→16:30)
[2023-08-24] MEDS: LORazepam 2MG/ML-1ML VIAL IV PRN ×2 (05:23→10:33)
[2023-08-24] MEDS: IBUPROFEN 600 MG TAB PO PRN ×2 (05:25→21:42)
[2023-08-24 06:31] LABS: Alanine Aminotransferase 32 U/L (7-40); Albumin 3.7 g/dL (3.2-4.8); Alkaline Phosphatase 90 U/L (46-116); Anion Gap 7 (5-15); Aspartate Aminotransferase 28 U/L (13-40); BUN/Creatinine Ratio 12.1 (10.0-20.0); Blood Urea Nitrogen 7 mg/dL (9-23); Calcium 8.6 mg/dL (8.7-10.4); Carbon Dioxide 26 mmol/L (20-30); Chloride 101 mmol/L (98-107); Glucose 112 mg/dL (74-106); Potassium 3.6 mmol/L (3.5-5.1); Sodium 134 mmol/L (136-145)
[2023-08-24 06:32] LABS: Total Protein 6.5 g/dL (5.7-8.2)
[2023-08-24] MEDS: POTASSIUM EFFERVESENT TAB 25 MEQ GT SCH ×2 (10:33→21:42)
[2023-08-24] MEDS: DULoxetine HCL 30 MG CAP PO SCH (10:34)
[2023-08-24] MEDS: GABAPENTIN 300 MG CAP PO SCH ×2 (10:34→21:41)
[2023-08-24] MEDS: SPIRONOLACTONE 25 MG TAB PO SCH (10:34)
[2023-08-24] MEDS: CITALOPRAM HYDROBR 20 MG TAB PO SCH (10:34)
[2023-08-24] MEDS: HYDROcodone-ACET 5/325MG TAB PO PRN (10:38)
[2023-08-24] MEDS: PIPERACILLIN-TAZOB 3.375GM 100 ML IV SCH ×3 (10:58→21:39)
[2023-08-24 17:27] LABS: COVID19 ANTIGEN SOFIA FIA NEGATIVE (NEGATIVE)
[2023-08-24] MEDS: QUEtiapine FUMARATE 100 MG TAB PO SCH (21:42)
[2023-08-24] MEDS: FOLIC ACID 1 MG, MAGNESIUM SULF SDV 50% 8 MEQ, MULTIPLE VITAMIN 10 ML, THIAMINE INJ 100... INJ SCH ×5 (21:44)
[2023-08-25] VITALS (8 sets, daily range): BP systolic 105–124; BP diastolic 70–89; PULSE 93–113; RESP 18–20; TEMP 98.1–102.9; O2SAT 96–99
[2023-08-25] MEDS: PIPERACILLIN-TAZOB 3.375GM 100 ML IV SCH ×3 (05:42→22:07)
[2023-08-25] MEDS: HYDROcodone-ACET 5/325MG TAB PO PRN ×2 (05:45→20:09)
[2023-08-25] MEDS: SODIUM CHLORIDE 0.9% 1,000 ML IV SCH ×3 (05:50→17:49)
[2023-08-25 07:35] LABS: Alanine Aminotransferase 34 U/L (7-40); Albumin 3.3 g/dL (3.2-4.8); Alkaline Phosphatase 73 U/L (46-116); Anion Gap 4 (5-15); Aspartate Aminotransferase 42 U/L (13-40); BUN/Creatinine Ratio 9.1 (10.0-20.0); Bilirubin, Total 0.6 mg/dL (0.2-1.0); Blood Urea Nitrogen 5 mg/dL (9-23); Calcium 8.5 mg/dL (8.5-10.1); Carbon Dioxide 24 mmol/L (20-30); Chloride 101 mmol/L (98-107); Glucose 98 mg/dL (74-106); Potassium 4.2 mmol/L (3.5-5.1)
[2023-08-25 07:36] LABS: Total Protein 5.9 g/dL (5.7-8.2)
[2023-08-25 07:38] LABS: Sodium 129 mmol/L (136-145)
[2023-08-25] MEDS: IBUPROFEN 600 MG TAB PO PRN ×2 (09:59→20:11)
[2023-08-25] MEDS: DULoxetine HCL 30 MG CAP PO SCH (10:00)
[2023-08-25] MEDS: CITALOPRAM HYDROBR 20 MG TAB PO SCH (10:01)
[2023-08-25] MEDS: GABAPENTIN 300 MG CAP PO SCH ×2 (10:01→22:07)
[2023-08-25] MEDS: POTASSIUM EFFERVESENT TAB 25 MEQ GT SCH ×2 (10:01→22:07)
[2023-08-25] MEDS: SPIRONOLACTONE 25 MG TAB PO SCH (10:02)
[2023-08-25 11:40] LABS: Hematocrit 32.5 % (41.0-53.0); Hemoglobin 11.1 g/dL (13.5-17.5); Mean Corpuscular Hemoglobin 37.7 pg (28.0-32.0); Mean Corpuscular Hgb Conc. 34.2 g/dL (32.0-36.0); Mean Corpuscular Volume 110.4 fL (80.0-100.0); Red Blood Cells 2.94 10^6/uL (4.5-5.90); Red Cell Distribution Width 13.8 % (11.8-14.3); White Blood Cell 3.1 10^3/uL (4.4-10.8)
[2023-08-25 11:44] LABS: Basophils % (manual) 0 (0.0-2.0); Blast Cells 0; Eosinophils % (manual) 0 (0-7); Metamyelocytes % 0; Myelocytes % 0; Promyelocytes % 0; Reactive Lymphocytes 0
[2023-08-25 13:44] LABS: Band Neutrophils % (manual) 3; Lymphocytes % (manual) 14 (10.0-50.0); Monocytes % (manual) 15 (0-12)
[2023-08-25 13:46] LABS: Platelet Estimate Decreased
[2023-08-25] MEDS: FOLIC ACID 1 MG, MAGNESIUM SULF SDV 50% 8 MEQ, MULTIPLE VITAMIN 10 ML, THIAMINE INJ 100... INJ SCH ×5 (17:58)
[2023-08-25] MEDS: QUEtiapine FUMARATE 100 MG TAB PO SCH (22:07)
[2023-08-26] MEDS: SODIUM CHLORIDE 0.9% 1,000 ML IV SCH ×3 (00:30→16:30)
[2023-08-26 05:00] VITALS: BP 110/75; PULSE 81; RESP 18; TEMP 97.3; O2SAT 99
[2023-08-26] MEDS: PIPERACILLIN-TAZOB 3.375GM 100 ML IV SCH ×3 (05:38→22:07)
[2023-08-26 05:57] LABS: Alanine Aminotransferase 27 U/L (7-40); Alkaline Phosphatase 58 U/L (46-116); Calcium 8.2 mg/dL (8.5-10.1); Carbon Dioxide 27 mmol/L (20-30); Chloride 102 mmol/L (98-107)
[2023-08-26 05:58] LABS: Albumin 2.9 g/dL (3.2-4.8); Anion Gap 3 (5-15); Aspartate Aminotransferase 26 U/L (13-40); BUN/Creatinine Ratio 15.7 (10.0-20.0); Bilirubin, Total 0.4 mg/dL (0.2-1.0); Blood Urea Nitrogen 8 mg/dL (9-23); Glucose 95 mg/dL (74-106); Potassium 4.5 mmol/L (3.5-5.1); Sodium 132 mmol/L (136-145); Total Protein 5.1 g/dL (5.7-8.2)
[2023-08-26 08:00] VITALS: BP 117/78; PULSE 87; PULSE 89; RESP 16; RESP 19; TEMP 99.1; O2SAT 98
[2023-08-26 08:42] VITALS: BP 117/78; PULSE 87; RESP 16; TEMP 99.1; O2SAT 98
[2023-08-26] MEDS: DULoxetine HCL 30 MG CAP PO SCH (10:21)
[2023-08-26] MEDS: POTASSIUM EFFERVESENT TAB 25 MEQ GT SCH ×2 (10:21→22:04)
[2023-08-26] MEDS: IBUPROFEN 600 MG TAB PO PRN (10:21)
[2023-08-26] MEDS: GABAPENTIN 300 MG CAP PO SCH ×2 (10:21→22:04)
[2023-08-26] MEDS: CITALOPRAM HYDROBR 20 MG TAB PO SCH (10:22)
[2023-08-26] MEDS: SPIRONOLACTONE 25 MG TAB PO SCH (10:22)
[2023-08-26 12:41] VITALS: BP 114/80; PULSE 96; RESP 18; TEMP 98.7; O2SAT 98
[2023-08-26 17:00] VITALS: BP 111/76; PULSE 96; RESP 20; TEMP 98.3; O2SAT 96
[2023-08-26] MEDS: FOLIC ACID 1 MG, MAGNESIUM SULF SDV 50% 8 MEQ, MULTIPLE VITAMIN 10 ML, THIAMINE INJ 100... INJ SCH ×5 (17:53)
[2023-08-26 20:00] VITALS: BP 121/82; PULSE 89; PULSE 97; RESP 18; TEMP 98.5; O2SAT 97
[2023-08-26] MEDS: QUEtiapine FUMARATE 100 MG TAB PO SCH (22:07)
[2023-08-27] MEDS: SODIUM CHLORIDE 0.9% 1,000 ML IV SCH ×3 (00:16→17:03)
[2023-08-27] MEDS: PIPERACILLIN-TAZOB 3.375GM 100 ML IV SCH ×3 (05:50→21:19)
[2023-08-27 06:30] LABS: Alanine Aminotransferase 25 U/L (7-40); Alkaline Phosphatase 59 U/L (46-116); Anion Gap 4 (5-15); Aspartate Aminotransferase 22 U/L (13-40); Calcium 8.2 mg/dL (8.7-10.4); Carbon Dioxide 25 mmol/L (20-30); Chloride 106 mmol/L (98-107); Glucose 99 mg/dL (74-106); Potassium 4.1 mmol/L (3.5-5.1); Sodium 135 mmol/L (136-145)
[2023-08-27 06:31] LABS: Bilirubin, Total 0.4 mg/dL (0.2-1.0); Total Protein 5.3 g/dL (5.7-8.2)
[2023-08-27 06:36] LABS: BUN/Creatinine Ratio 9.8 (10.0-20.0); Blood Urea Nitrogen < 5 mg/dL (9-23)
[2023-08-27 08:00] VITALS: PULSE 80; PULSE 88; RESP 18; O2SAT 94
[2023-08-27 08:50] VITALS: BP 122/87; PULSE 80; RESP 18; TEMP 99.2; O2SAT 94
[2023-08-27] MEDS: DULoxetine HCL 30 MG CAP PO SCH (09:08)
[2023-08-27] MEDS: SPIRONOLACTONE 25 MG TAB PO SCH (09:08)
[2023-08-27] MEDS: POTASSIUM EFFERVESENT TAB 25 MEQ GT SCH ×2 (09:08→21:19)
[2023-08-27] MEDS: GABAPENTIN 300 MG CAP PO SCH ×2 (09:08→21:20)
[2023-08-27] MEDS: CITALOPRAM HYDROBR 20 MG TAB PO SCH (09:09)
[2023-08-27] MEDS: HYDROcodone-ACET 5/325MG TAB PO PRN ×2 (09:54→17:46)
[2023-08-27 13:00] VITALS: BP 102/73; PULSE 80; RESP 18; TEMP 98.7; O2SAT 93
[2023-08-27 17:00] VITALS: BP 124/85; PULSE 80; RESP 17; TEMP 98.9; O2SAT 96
[2023-08-27] MEDS: FOLIC ACID 1 MG, MAGNESIUM SULF SDV 50% 8 MEQ, MULTIPLE VITAMIN 10 ML, THIAMINE INJ 100... INJ SCH ×5 (18:19)
[2023-08-27 20:00] VITALS: PULSE 79; PULSE 80; RESP 18; O2SAT 96
[2023-08-27] MEDS: IBUPROFEN 600 MG TAB PO PRN (21:20)
[2023-08-27] MEDS: QUEtiapine FUMARATE 100 MG TAB PO SCH (21:21)
[2023-08-27 22:00] VITALS: BP 124/90; PULSE 74; RESP 20; TEMP 99.6; O2SAT 97
[2023-08-28] MEDS: SODIUM CHLORIDE 0.9% 1,000 ML IV SCH ×2 (00:30→08:30)
[2023-08-28 05:00] VITALS: BP 114/81; PULSE 76; RESP 20; TEMP 98.5; O2SAT 96
[2023-08-28] MEDS: PIPERACILLIN-TAZOB 3.375GM 100 ML IV SCH (06:07)
[2023-08-28 07:45] VITALS: PULSE 80
[2023-08-28 08:00] VITALS: PULSE 79
[2023-08-28] MEDS: POTASSIUM EFFERVESENT TAB 25 MEQ GT SCH (08:33)
[2023-08-28 08:52] VITALS: BP 120/85; PULSE 80; RESP 16; TEMP 98.3; O2SAT 92
[2023-08-28] MEDS: CITALOPRAM HYDROBR 20 MG TAB PO SCH (10:21)
[2023-08-28] MEDS: GABAPENTIN 300 MG CAP PO SCH (10:21)
[2023-08-28] MEDS: SPIRONOLACTONE 25 MG TAB PO SCH (10:22)
[2023-08-28] MEDS: DULoxetine HCL 30 MG CAP PO SCH (10:22)
[2023-08-28 12:34] VITALS: BP 122/91; PULSE 99; RESP 17; TEMP 98.3; O2SAT 92
== END 2023-08-28 13:03 | DRG 897 ==
LOC: ER 05:25 → TELE 08-19 02:43 → TELE-CENTR 08-20 09:42
PROVIDERS: ADMIT Nurse Practitioner; ATTEND Family Medicine
DX: F10.129 Alcohol abuse with intoxication, unspecified (principal); E44.0 Moderate protein-calorie malnutrition; E87.21 Acute metabolic acidosis; F10.139 Alcohol abuse with withdrawal, unspecified; G89.29 Other chronic pain; I10 Essential (primary) hypertension; E87.6 Hypokalemia; Z20.822 Contact with and (suspected) exposure to COVID-19; F17.210 Nicotine dependence, cigarettes, uncomplicated; F32.A Depression, unspecified; F41.9 Anxiety disorder, unspecified; G62.9 Polyneuropathy, unspecified; K70.30 Alcoholic cirrhosis of liver without ascites; K21.9 Gastro-esophageal reflux disease without esophagitis; S09.8XXA Other specified injuries of head, initial encounter; W18.39XA Other fall on same level, initial encounter; F20.9 Schizophrenia, unspecified; Y90.8 Blood alcohol level of 240 mg/100 ml or more; Z88.5 Allergy status to narcotic agent; Z90.49 Acquired absence of other specified parts of digestive tract; Y93.89 Activity, other specified; Y92.89 Other specified places as the place of occurrence of the external cause; Y99.8 Other external cause status; Z68.24 Body mass index [BMI] 24.0-24.9, adult
CPT/HCPCS: 36415; 36600; 70450; 70486; 71045; 72125; 74176; 80048; 80053; 80307; 80320; 81001; 82140; 82550; 82805; 82962; 85007; 85025; 85027; 85610; 85730; 87040; 87086; 87426; 93005; 97110; 97116; 97163; C9113; G0378; J2001; J2405; J2543; J3480

== ENCOUNTER 2024-09-16 | Inpatient (IN) | payer MEDICARE, MEDICAID ==
[~2024-09-16] VITALS: Ht 185.4 cm; Wt 95.0 kg
[~2024-09-16] MED LIST changes: -ALPR0.254 PO; -CEPH-509 PO; +CHL10C PO; -CHL25C GT; -CLON0.5T3 PO; +DULO1CAP6 PO; -DULO20CA PO; -OXY10CRT PO; +OXYC325T14 PO; +QUET150T2 PO; -QUET300T14 PO; -SPIR50TA5 PO
[2024-09-16 00:43] LABS: Basophils # (auto) 0 10 ^3/uL (0-0.2); Basophils % (auto) 0.4 % (0.0-2.0); Eosinophils # (auto) 0 10 ^3/uL (0-0.8); Eosinophils % (auto) 0.7 % (0.0-7.0); Hematocrit 34.9 % (41.0-53.0); Lymphocytes # (auto) 0.2 10 ^3/uL (0.4-5.4); Lymphocytes % (auto) 4.9 % (10.0-50.0); Mean Corpuscular Hemoglobin 33.9 pg (28.0-32.0); Mean Corpuscular Hgb Conc. 34.5 g/dL (32.0-36.0); Mean Corpuscular Volume 98.1 fL (80.0-100.0); Monocytes # (auto) 0.4 10 ^3/uL (0-1.3); Platelet Count (auto) 154 10^3/uL (140-450); Red Blood Cells 3.56 10^6/uL (4.5-5.90); Red Cell Distribution Width 14.2 % (11.8-14.3); White Blood Cell 4.7 10^3/uL (4.4-10.8)
[2024-09-16 00:59] LABS: Alanine Aminotransferase 12 U/L (7-40); Albumin 3.8 g/dL (3.2-4.8); Anion Gap 6 (5-15); Aspartate Aminotransferase 14 U/L (13-40); Blood Urea Nitrogen 13 mg/dL (9-23); Carbon Dioxide 23 mmol/L (20-31)
[2024-09-16 01:00] LABS: Alkaline Phosphatase 138 U/L (46-116); Bilirubin, Total 0.2 mg/dL (0.2-1.0); Calcium 8.3 mg/dL (8.7-10.4); Chloride 93 mmol/L (98-107); Glucose 117 mg/dL (74-106); Potassium 3.1 mmol/L (3.5-5.1); Sodium 122 mmol/L (136-145); Total Protein 6.1 g/dL (5.7-8.2)
--- NOTE | 2024-09-16 06:56 | ECG ---
[facility] Test Date: 2024-09-16 Test Time: 00:23:37 Pat Name: JENSEN BACK Department: er Room: Gender: M Stock Feeder: : [id number] Requested By: SCOTT ESTRADA Order Number: [id number] Reading MD: Lavell Levi Measurements Intervals [place] Rate: 59 P: 23 NV: 224 QRS: 1 QRSD: 140 T: 10 QT: 497 QTc: 493 Interpretive Statements Sinus rhythm Prolonged NV interval Right bundle branch block Baseline wander in lead(s) I,II,aVR,aVF,V1,V2,V3,V4 Electronically Signed On 09-16-2024 12:01:17 PST by Lavell Levi Please click the below link to view image of tracing.
--- NOTE | 2024-09-16 12:39 | DVH ---
CHEST RADIOGRAPH Indication: cough Technique: Single frontal view of the chest was obtained COMPARISON: XY CHEST XRAY 1 VIEW on DOS: 08/24/23, XY CHEST PORTABLE on DOS: 01/07/23, XY CHEST PORTABLE on DOS: 12/31/22, XY CHEST PORTABLE on DOS: 12/28/22, XY CHEST PORTABLE on DOS: 12/28/22 FINDINGS: Lines and Tubes: None Lungs: Mild increased interstitial prominence. Pleura: No effusion. No pneumothorax. Cardiomediastinal contours: Small hiatal hernia. Bones: Unremarkable IMPRESSION: Pulmonary vascular congestion.
--- NOTE | 2024-09-16 12:57 | DVH ---
BILATERAL LOWER EXTREMITY VENOUS DOPPLER CLINICAL HISTORY: BLLE with SOB Technique: Duplex Doppler evaluation of the deep venous systems of both lower extremities from the co mmon femoral veins to the popliteal veins including color Doppler and spectral/pulsed waveform analys is was performed. COMPARISON: US BILAT LOWER DVT on DOS: 01/11/23, US BILAT LOWER DVT on DOS: 12/30/22 FINDINGS: The right and left common femoral, superficial femoral, popliteal, posterior tibial veins appear pa tent with normal augmentation, phasicity, compressibility and color-flow. IMPRESSION: 1. There is no sonographic evidence for DVT in the lower extremities. HS:Y
--- NOTE | 2024-09-16 13:12 | ED.PDOC ---
History of Present Illness HPI Comments 54 y/o M presents with c/o chronic bilateral feet and lower back pain, shortness of breath, dizziness, and bilateral leg edema, today. Patient is a poor historian and reports on calling EMS, due to being no longer able to tolerate pain, due to it worsening, recently. He comments further on having leg edema for several months. He denies having any chest pain, palpitations, fever, chills, or other associated symptoms or modifiers at this time. Chief Complaint: General Weakness Time Seen by MD: 12:15 Primary Care Provider: ARACELI Reviewed Notes: Nurses Notes, Medications, Allergies Allergies: Coded Allergies: Morphine (Verified Allergy, Severe, respiratory failure, 01/01/23) Home Meds Active Scripts Chlordiazepoxide Hcl (Ni-1) (I (Librium) 10 Mg Cap, 10 MG PO BID for 7 Days, #14 CAP Prov:RODERICK REBOLLEDO MD 08/18/23 Morphine Sulfate (Morphine Sulfate) 15 Mg Tab, 1 TAB PO BID PRN, #60 TAB Prov:ANKUR VELASCO MD 12/06/22 Potassium Chloride (Klor-Con 10) 10 Meq Tab, 10 MEQ PO DAILY for 30 Days, #30 TAB 2 Refills Prov:MAGUI BARAHONA MD 11/02/21 Furosemide (Lasix) 40 Mg Tab, 40 MG PO QAM for 30 Days, #30 TAB 2 Refills Prov:MAGUI BARAHONA MD 11/02/21 Spironolactone (Aldactone) 25 Mg Tab, 50 MG PO BIDD for 30 Days, #60 TAB 2 Refills Prov:MAGUI ABRAHONA MD 11/02/21 Ferrous Sulfate (Ferrous Sulfate) 325 Mg Tab, 2 TAB PO DAILY for 10 Days, #10 MG Prov:Kami Wilson 10/30/21 Reported Medications Oxycodone W/ Acetaminophen (Apap/Oxycodone) 1 Tab Tab, 1 TAB PO QID 08/21/23 Duloxetine HCl (Duloxetine HCl) 60 Mg Cap, 60 MG PO QAM, CAP 08/21/23 Quetiapine Fumerate (Seroquel Xr) 150 Mg Tab, 150 MG PO HS, TAB 08/21/23 Ergocalciferol (VITAMIN D 71909 UNIT) 50,000 [place], [address] UNIT PO WEEKLY, CAP 10/30/21 Thiamine Mononitrate (Vitamin B-1) 100 Mg Tab, 100 MG PO DAILY, TAB 10/30/21 Pantoprazole Sodium Sesquihydr (Protonix) 40 Mg Tab, 40 MG PO DAILY, #30 TAB 10/30/21 Baclofen (Baclofen) 20 Mg Tab, 1 TAB PO QID, #90 TAB 2 Refills 10/30/21 Folic Acid (Folic Acid) 1 Mg Tab, 1 MG PO DAILY, TAB 10/30/21 Gabapentin (Gabapentin) 800 Mg Tab, 800 MG PO QID, TAB 10/30/21 Trazodone HCl (Trazodone Hydrocloride) 100 Mg Tab, 100 MG PO HS, TAB 10/03/21 Citalopram Hydrobromide (Celexa) 40 Mg Tab, 40 MG PO DAILY, TAB 10/13/20 Information Source: Patient Mode of Arrival: EMS Severity: Moderate Duration: Since onset Prehospital treatment: None Past Medical History PAST MEDICAL HISTORY: Anxiety, Depression, GERD, HTN, Liver, Schizophrenia Surgical History: Appendectomy, Cholecystectomy, Hernia Repair Family History Family History: Reviewed,noncontributory to illness Social History Smoker: Cigarettes Alcohol: Heavy Drugs: Denies Drug Use Lives In: Home Respiratory: reports: shortness of breath Cardiovascular: reports: edema Neurological: reports: dizziness Musculoskeletal: reports: back pain (lower back pain ), others (chronic bila teral feet pain ) All Other Systems: Reviewed and Negative (negative unless otherwise stated above or in HPI) Physical Exam General Appearance: No Apparent Distress, Normal HEENT: Normal ENT Inspection, Pharynx Normal, TMs Normal Neck: Full Range of Motion, Non-Tender, Normal, Normal Inspection Respiratory: Chest Non-Tender, Lungs Clear, No Accessory Muscle Use, Other (coarse breathe sounds at bases) Cardiovascular: No Edema, No JVD, No Murmur, No Gallop, Normal Peripheral Pulses, Regular Rate/Rhythm Breast Exam: Deferred Gastrointestinal: No Organomegaly, Non Tender, No Pulsatile Mass, Normal Bowel Sounds, Soft Genitalia: Deferred Pelvic: Deferred Rectal: Deferred Extremities: Leg edema (4+ edema to bilateral lower extremities), No calf tenderness, Normal capillary refill, Normal range of motion, No pedal edema Musculoskeletal : Apperance: Normal Neurologic: Alert, building architectural designer II-XII nml as Tested, No Motor Deficits, Normal Affect, Normal Mood, No Sensory Deficits Cerebellar Function: Normal Reflexes: Normal Skin: Dry, Normal Color, Warm Lymphatic: No Adenopathy Was a procedure done? Was a procedure done?: No EKG EKG : Pulse Rate (adult): 59 Longs: Normal Cardiac Rhythm: NSR Block: None Hypertrophy: None ST: Normal Differential Dx Considerations may include: chronic pain syndrome, electrolyte imbalance, dehydration X-Ray, Labs, Meds, VS Vital Signs Date Time Temp Pulse Resp B/P (MAP) Pulse Ox O2 Delivery O2 Flow Rate FiO2 09/16/24 13:12 59 09/16/24 11:58 98.3 69 18 140/83 (102) 99 98.3 09/16/24 02:36 97.4 59 12 135/90 (105) 98 97.4 09/16/24 00:23 59 09/16/24 00:11 97.7 61 18 126/82 (97) 94 Lab Test 09/16/24 12:59 09/16/24 00:20 09/16/24 00:16 Range/Units White Blood Count Pending 4.7 4.4-10.8 10^3/uL Red Blood Count Pending 3.56 L 4.5-5.90 10^6/uL Hemoglobin Pending 12.0 L 13.5-17.5 g/dL Hematocrit Pending 34.9 L 41.0-53.0 % Mean Corpuscular Volume Pending 98.1 80.0-100.0 fL Mean Corpuscular Hemoglobin Pending 33.9 H 28.0-32.0 pg Mean Corpuscular Hemoglobin Concent Pending 34.5 32.0-36.0 g/dL Red Cell Distribution Width Pending 14.2 11.8-14.3 % Platelet Count Pending 154 140-450 10^3/uL Mean Platelet Volume Pending 8.7 6.9-10.8 fL Neutrophils (%) (Auto) Pending 86.0 H 37.0-80.0 % Lymphocytes (%) (Auto) Pending 4.9 L 10.0-50.0 % Monocytes (%) (Auto) Pending 8.0 0.0-12.0 % Basophils (%) (Auto) Pending 0.4 0.0-2.0 % Neutrophils # (Auto) Pending 4.0 1.6-8.6 10 ^3/uL Lymphocytes # (Auto) Pending 0.2 L 0.4-5.4 10 ^3/uL Monocytes # (Auto) Pending 0.4 0-1.3 10 ^3/uL D-Dimer, Quantitative Pending Sodium Level Pending 122 L 136-145 mmol/L Potassium Level Pending 3.1 L 3.5-5.1 mmol/L Chloride Level Pending 93 L 98-107 mmol/L Carbon Dioxide Level Pending 23 20-31 mmol/L Anion Gap Pending 6 5-15 Blood Urea Nitrogen Pending 13 9-23 mg/dL Creatinine Pending 0.62 L 0.700-1.30 mg/dL Glomerular Filtration Rate Calc Pending 112 >90 mL/min BUN/Creatinine Ratio Pending 21.0 H 10.0-20.0 Serum Glucose Pending 117 H 74-106 mg/dL Calcium Level Pending 8.3 L 8.7-10.4 mg/dL Magnesium Level Pending Total Bilirubin Pending 0.2 0.2-1.0 mg/dL Aspartate Amino Transferase (AST) Pending 14 13-40 U/L Alanine Aminotransferase (ALT) Pending 12 7-40 U/L Alkaline Phosphatase Pending 138 H 46-116 U/L Total Protein Pending 6.1 5.7-8.2 g/dL Albumin Pending 3.8 3.2-4.8 g/dL Eosinophils (%) (Auto) 0.7 0.0-7.0 % Eosinophils # (Auto) 0 0-0.8 10 ^3/uL Basophils # (Auto) 0 0-0.2 10 ^3/uL Nucleated Red Blood Cells 0.0 % Ammonia 18 11-32 umol/L Troponin I High Sensitivity < 3 L </=54 ng/L B-Type Natriuretic Peptide 53.45 0-100 pg/mL Plasma/Serum Blood Alcohol 5.0 <10 mg/dL POC Glucose 117 H 70-106 mg/dl [address] [address] Ph: [phone] DIAGNOSTIC IMAGING Diagnostic Imaging Report : [id number] Signed PATIENT: JENSEN BACK ACCT: [id number] UNIT: [id number] : 1970 LOC: ER ROOM / BED: / AGE / SEX: 54 / M ADM STATUS: REG ER SERVICE 1219 ORDERING PHYSICIAN: JAMIR HAMM MD PROCEDURE(s): CXRP - CHEST PORTABLE REASON: cough ORDER NUMBER(s): [id number], ACCESSION NUMBER(s): [id number] CHEST RADIOGRAPH Indication: cough Technique: Single frontal view of the chest was obtained COMPARISON: XY CHEST XRAY 1 VIEW on DOS: 08/24/23, XY CHEST PORTABLE on DOS: 01/07/23, XY CHEST PORTABLE on DOS: 12/31/22, XY CHEST PORTABLE on DOS: 12/28/22, XY CHEST PORTABLE on DOS: 12/28/22 FINDINGS: Lines and Tubes: None Lungs: Mild increased interstitial prominence. Pleura: No effusion. No pneumothorax. Cardiomediastinal contours: Small hiatal hernia. Bones: Unremarkable IMPRESSION: Pulmonary vascular congestion. ATED BY: JOSE JUAN SPENCER MD DICTATED DATE/TIME: 09/16/24 1236 SIGNED BY: JOSE JUAN SPENCER MD SIGNED DATE/TIME: 09/16/24 1236 CC: X-Ray, Labs, Meds, VS Comment This 54 year old male presents secondary to what he believed was secondary to his neuropathy. He states he was having difficulty ambulating, shortness of breath and lower back pain. The patient was noted to have severe bilateral lower extremity edema. Patient endorses having more extremely but he assumed he was secondary to his neuropathy. He denied having history of CHF. However, he has a obvious sequelae of CHF including on his extra chest and his lower extre mity edema. Other findings include severe hyponatremia. Secondary to multiple complaints, the patient will be admitted for further workup and management. Time of 1ST Reevaluation: 12:45 Reevaluation 1ST: Unchanged Patient Education/Counseling: Diagnosis, Treatment Family Education/Counseling: No Family Present Departure 1 Departure Time of Disposition: 13:50 Impression: Primary Impression: Bilateral lower extremity edema Additional Impressions: Generalized weakness Dyspnea Hyponatremia CHF (congestive heart failure) Disposition: ADMITTED INPATIENT Admit to: Tele Condition: Serious Critical Care Note Critical Care Time?: No Stability Stability form required: No Heart Score Heart Score: Heart Score Response (Comments) Value History N/A 0 EKG N/A 0 Age N/A 0 Risk Factors N/A 0 Troponin N/A 0 Total 0 I personally scribed for JAMIR HAMM MD ([email or web address]) on 09/16/24 at 13:12. Electronically submitted by Aric Phelps ([email or web address]). JAMIR HAMM MD Sep 16, 2024 13:12
[2024-09-16 13:30] LABS: Basophils # (auto) 0 10 ^3/uL (0-0.2); Basophils % (auto) 0.2 % (0.0-2.0); Eosinophils # (auto) 0 10 ^3/uL (0-0.8); Hematocrit 42.4 % (41.0-53.0); Hemoglobin 14.3 g/dL (13.5-17.5); Lymphocytes # (auto) 0.1 10 ^3/uL (0.4-5.4); Lymphocytes % (auto) 4.7 % (10.0-50.0); Mean Corpuscular Hemoglobin 33.3 pg (28.0-32.0); Mean Corpuscular Hgb Conc. 33.7 g/dL (32.0-36.0); Mean Corpuscular Volume 98.8 fL (80.0-100.0); Monocytes # (auto) 0.2 10 ^3/uL (0-1.3); Monocytes % (auto) 8.8 % (0.0-12.0); Neutrophils # (auto) 2.4 10 ^3/uL (1.6-8.6); Neutrophils % (auto) 86.3 % (37.0-80.0); Platelet Count (auto) 167 10^3/uL (140-450); Red Cell Distribution Width 14.1 % (11.8-14.3); White Blood Cell 2.8 10^3/uL (4.4-10.8)
[2024-09-16 13:44] LABS: Alanine Aminotransferase 13 U/L (7-40); Albumin 4.5 g/dL (3.2-4.8); Anion Gap 5 (5-15); Aspartate Aminotransferase 14 U/L (13-40); Blood Urea Nitrogen 12 mg/dL (9-23); Calcium 9.5 mg/dL (8.7-10.4); Carbon Dioxide 27 mmol/L (20-31); Magnesium 2.2 mg/dL (1.6-2.6); Potassium 3.6 mmol/L (3.5-5.1); Total Protein 7.4 g/dL (5.7-8.2)
[2024-09-16 14:00] LABS: Alkaline Phosphatase 164 U/L (46-116); Bilirubin, Total 0.2 mg/dL (0.2-1.0); Chloride 91 mmol/L (98-107); Glucose 120 mg/dL (74-106); Sodium 123 mmol/L (136-145)
[2024-09-16 14:52] LABS: Urine Bacteria FEW /hpf (None Seen); Urine Blood Negative /uL (Negative); Urine Clarity Clear (Clear); Urine Color Yellow (Yellow); Urine Mucus FEW (None Seen); Urine Protein, UAD 1+ (Negative); Urine Squamous Epithelial Cell FEW /hpf (<5); Urine Urobilinogen 4 mg/dL (Negative); Urine WBC 4 /HPF (0-3); Urine pH 6.5 (5.0-9.0)
[2024-09-16 15:09] LABS: Cannabinoid Screen, Urine Pos (NEGATIVE); Phencyclidine Screen, Urine Neg (NEGATIVE)
[2024-09-16 15:14] LABS: Amphetamine Screen, Urine Neg (NEGATIVE); Barbiturate Scree,Urine Neg (NEGATIVE); Benzodiazephine Screen, Urine Neg (NEGATIVE); Cocaine Screen, Urine Neg (NEGATIVE); Opiate Scree,Urine Pos (NEGATIVE)
[2024-09-16] MEDS: SODIUM CHLORIDE 0.9% 1,000 ML IV SCH (16:15)
--- NOTE | 2024-09-16 16:29 | DVHHP2 ---
History of Present Illness Reason for Visit: Back pain History of Present Illness Gregorio Moreno is a 64-year-old male with past medical history of hypertension, depression, schizophrenia, liver cirrhosis, GERD, cholecystectomy, hernia repair, and appendectomy who presents to the ED for generalized weakness, back pain, neuropathy, SOB, bilateral lower extremity pain and bilateral lower extremity edema with dizziness. Patient reports that he is not using a walker wheelchair at this time but once in a while because of his neuropathy pain he unable to ambulate. Patient denies any chest pain, nausea, abdominal pain, vomiting, diarrhea, fever, chills, lightheadedness, and headaches. Past Surgical History: Appendectomy, Cholecystectomy, Hernia Repair Smoke: <1 pack per day ALCOHOL: heavy Domestic Violence: Neg Review of Systems Constitutional: Yes: Other (Weakness and weakness); No: Fever, Chills, Sweats, Weakness, Malaise Eyes: No: Pain, Vision change, Conjunctivae inflammation, Eyelid inflammation, Other, Redness ENT: No: Ear pain, Ear discharge, Nose pain, Nose discharge, Nose congestion, Mouth pain, Mouth swelling, Throat pain, Throat swelling, Other Respiratory: Shortness of breath; No: Cough, Dry, SOB with excertion, Wheezing, Hemoptysis, Pleuritic Pain, Sputum, Wheezing, Other Cardiovascular: No: Chest Pain, Palpitations, Orthopnea, Paroxysmal Noc. D yspnea, Edema, Lt Headedness, Other Gastrointestinal: No: Nausea, Vomiting, Abdominal Pain, Diarrhea, Constipation, Melena, Hematochezia, Other Genitourinary: No Dysuria, No Frequency, No Incontinence, No Hematuria, No Retention, No Other Musculoskeletal: other (Bilateral lower extremity pain), back pain; No: neck pain, shoulder pain, arm pain, hand pain, leg pain, foot pain Skin: No: Rash, Lesions, Jaundice, Bruising, Other Neurological: Other (Neuropathy); No: Weakness, Numbness, Incoordination, Change in speech, Confusion, Seizures Allergies: Coded Allergies: Morphine (Verified Allergy, Severe, respiratory failure, 01/01/23) Exam Vital Signs Vital Signs Date Time Temp Pulse Resp B/P (MAP) Pulse Ox O2 Delivery O2 Flow Rate FiO2 09/16/24 13:12 59 09/16/24 11:58 98.3 18 140/83 (102) 99 98.3 General Appearance: Alert, Oriented X3, Cooperative, No acute distress HEENT: Atraumatic, PERRLA, EOMI, Mucous membr. moist/pink Respiratory: Normal air movement Cardiovascular: Normal S1, Normal S2, No murmurs Abdominal: Normal bowel sounds, Soft, No tenderness, No hepatospenomegaly, No masses Extremities: No clubbing, No cyanosis, Normal pulses, No tenderness/swelling Skin: No significant lesion Neuro: Normal speech, Normal tone, Sensation intact Psych/Mental Status: Mental status NL, Mood NL Labs/Xrays Labs Test 09/16/24 12:59 09/16/24 11:45 09/16/24 00:20 09/16/24 00:16 Range/Units White Blood Count 2.8 L 4.4-10.8 10^3/uL Red Blood Count 4.30 L 4.5-5.90 10^6/uL Hemoglobin 14.3 # 13.5-17.5 g/dL Hematocrit 42.4 # 41.0-53.0 % Mean Corpuscular Volume 98.8 80.0-100.0 fL Mean Corpuscular Hemoglobin 33.3 H 28.0-32.0 pg Mean Corpuscular Hemoglobin Concent 33.7 32.0-36.0 g/dL Red Cell Distribution Width 14.1 11.8-14.3 % Platelet Count 167 140-450 10^3/uL Mean Platelet Volume 9.0 6.9-10.8 fL Neutrophils (%) (Auto) 86.3 H 37.0-80.0 % Lymphocytes (%) (Auto) 4.7 L 10.0-50.0 % Monocytes (%) (Auto) 8.8 0.0-12.0 % Eosinophils (%) (Auto) 0.0 0.0-7.0 % Basophils (%) (Auto) 0.2 0.0-2.0 % Neutrophils # (Auto) 2.4 1.6-8.6 10 ^3/uL Lymphocytes # (Auto) 0.1 L 0.4-5.4 10 ^3/uL Monocytes # (Auto) 0.2 0-1.3 10 ^3/uL Eosinophils # (Auto) 0 0-0.8 10 ^3/uL Basophils # (Auto) 0 0-0.2 10 ^3/uL Nucleated Red Blood Cells 0.0 % D-Dimer, Quantitative 1.43 H 0.0-0.49 mg/L FEU Sodium Level 123 L 136-145 mmol/L Potassium Level 3.6 3.5-5.1 mmol/L Chloride Level 91 L 98-107 mmol/L Carbon Dioxide Level 27 20-31 mmol/L Anion Gap 5 5-15 Blood Urea Nitrogen 12 9-23 mg/dL Creatinine 0.63 L 0.700-1.30 mg/dL Glomerular Filtration Rate Calc 112 >90 mL/min BUN/Creatinine Ratio 19.0 10.0-20.0 Serum Glucose 120 H 74-106 mg/dL Calcium Level 9.5 8.7-10.4 mg/dL Magnesium Level 2.2 1.6-2.6 mg/dL Total Bilirubin 0.2 0.2-1.0 mg/dL Aspartate Amino Transferase (AST) 14 13-40 U/L Alanine Aminotransferase (ALT) 13 7-40 U/L Alkaline Phosphatase 164 H 46-116 U/L Total Protein 7.4 5.7-8.2 g/dL Albumin 4.5 3.2-4.8 g/dL Urine Color Yellow Yellow Urine Clarity Clear Clear Urine pH 6.5 5.0-9.0 Urine Specific [place] 1.040 H 1.001-1.035 Urine Protein 1+ H Negative Urine Ketones 2+ H Negative Urine Blood Negative Negative /uL Urine Nitrite Negative Negative Urine Bilirubin Negative Negative Urine Urobilinogen 4 H Negative mg/dL Urine Leukocyte Esterase Negative Negative /uL Urine RBC 1 0 - 3 /hpf Urine Microscopic WBC 4 H 0-3 /HPF Urine Squamous Epithelial Cells Few <5 /hpf Urine Bacteria Few H None Seen /hpf Urine Mucus Few None Seen Urine Glucose Normal Normal mg/dL Urine Opiates Screen Pos NEGATIVE Urine Fentanyl Screen Neg NEGATIVE Urine Barbiturates Screen Neg NEGATIVE Urine Phencyclidine Screen Neg NEGATIVE Urine Amphetamines Screen Neg NEGATIVE Urine Benzodiazepines Screen Neg NEGATIVE Urine Cocaine Screen Neg NEGATIVE Urine Cannabinoids Screen Pos NEGATIVE Ammonia 18 11-32 umol/L Troponin I High Sensitivity < 3 L </=54 ng/L B-Type Natriuretic Peptide 53.45 0-100 pg/mL Plasma/Serum Blood Alcohol 5.0 <10 mg/dL POC Glucose 117 H 70-106 mg/dl EXAM: CT CT ANGIO CHEST CONTRAST History: r/o pe Comparison Study: CT CT ANGIO CHEST CONTRAST on DOS: 01/10/23, CT CT ANGIO CHEST CONTRAST on DOS: 12/31/22, CTACH on DOS: 09/22/22 TECHNIQUE: A digital linoleum mechanic image was obtained. During the uneventful, intravenous administration of contrast material, multislice data acquisition was obtained through the chest. 3-D postprocessing is performed by technologist including MIP imaging Radiation Dose : CTDI vol 28.39 mGy, DLP 1103.0 mGy*cm. Findings: Lungs: The lungs are clear. Pleura: Unremarkable Heart/Great vessels: No cardiomegaly or pericardial effusion. No pulmonary em bolism, aneurysm, or dissection. Mediastinum: Moderate hiatal hernia. Soft tissues/Bones: Unremarkable Postsurgical changes of th stomach. The partially visualized upper abdomen is within normal limits. Impression: 1. No evidence of a pulmonary embolism, aneurysm, or dissection. BILATERAL LOWER EXTREMITY VENOUS DOPPLER CLINICAL HISTORY: BLLE with SOB Technique: Duplex Doppler evaluation of the deep venous systems of both lower extremities from the common femoral veins to the popliteal veins including color Doppler and spectral/pulsed waveform analysis was performed. COMPARISON: US BILAT LOWER DVT on DOS: 01/11/23, US BILAT LOWER DVT on DOS: 12/30/22 FINDINGS: The right and left common femoral, superficial femoral, popliteal, posterior tibial veins appear patent with normal augmentation, phasicity, compressibility and color-flow. IMPRESSION: 1. There is no sonographic evidence for DVT in the lower extremities. CHEST RADIOGRAPH Indication: cough Technique: Single frontal view of the chest was obtained COMPARISON: XY CHEST XRAY 1 VIEW on DOS: 08/24/23, XY CHEST PORTABLE on DOS: 01/07/23, XY CHEST PORTABLE on DOS: 12/31/22, XY CHEST PORTABLE on DOS: 12/28/22, XY CHEST PORTABLE on DOS: 12/28/22 FINDINGS: Lines and Tubes: None Lungs: Mild increased interstitial prominence. Pleura: No effusion. No pneumothorax. Cardiomediastinal contours: Small hiatal hernia. Bones: Unremarkable IMPRESSION: Pulmonary vascular congestion. Assessment/Plan Assessment/Plan Assessment/Plan: Intractable abdominal pain Bradycardia Ketonuria Hyponatremia Thrombocytopenia labs Ultrasound bilateral lower extremity DVT noted Mag level UA D-dimer elevated Chest x-ray Troponin Ammonia Drug screen Blood alcohol EKG BNP CTA chest Respiratory treatments Antiemetics Pain management Hypokalemia replete lytes Chronic hypertension Continue home medications History of depression History of schizophrenia Continue home medications History of liver cirrhosis Follow up outpatient with PCP History of GERD Protonix Polysubstance abuse Counseled patient on cessation of polysubstance use FEN/PPX diet IV fluids DVT prophylaxis -patient ambulates not indicated PUD prophylaxis continue home medication, Protonix Admit to tele Home medications reconciled Discussed plan of care with patient and nurse Plan discussed with: Patient Date of Service: Sep 16, 2024 Billing Provider: CLARISA MORRISON Common Visit Codes: [id number] INP/OBS CARE (HIGH) CLARISA MORRISON Sep 16, 2024 16:29
[2024-09-16] MEDS ORDERED: IPRATROPIUM BROM 0.5 MG/2.5ML INH SOL NEB PRN (16:30)
[2024-09-16] MEDS ORDERED: ALBUTEROL SULF 2.5 MG/0.5ML(0.5%) NEB SOLN NEB PRN (16:30)
[2024-09-16 16:35] VITALS: BP 140/83; PULSE 59; RESP 18; TEMP 98.3; O2SAT 99
[2024-09-16] MEDS: IOHEXOL 350 MG/ML 100ML IJ ONE (17:05)
--- NOTE | 2024-09-16 17:28 | DVH ---
EXAM: CT CT ANGIO CHEST CONTRAST History: r/o pe Comparison Study: CT CT ANGIO CHEST CONTRAST on DOS: 01/10/23, CT CT ANGIO CHEST CONTRAST on DOS: , CTACH on DOS: 09/22/22 TECHNIQUE: A digital counterintelligence/humint specialist image was obtained. During the uneventful, intravenous administration of c ontrast material, multislice data acquisition was obtained through the chest. 3-D postprocessing is performed by technologist including MIP imaging Radiation Dose : CTDI vol 28.39 mGy, DLP 1103.0 mGy*cm. Findings: Lungs: The lungs are clear. Pleura: Unremarkable Heart/Great vessels: No cardiomegaly or pericardial effusion. No pulmonary embolism, aneurysm, or dis section. Mediastinum: Moderate hiatal hernia. Soft tissues/Bones: Unremarkable Postsurgical changes of th stomach. The partially visualized upper abdomen is within normal limits. Impression: 1. No evidence of a pulmonary embolism, aneurysm, or dissection.
[2024-09-16 18:28] VITALS: PULSE 69; PULSE 70; RESP 18; RESP 20; O2SAT 100; O2SAT 99
[2024-09-16] MEDS: ALBUTEROL SULF 2.5 MG/0.5ML(0.5%) NEB SOLN NEB SCH (20:18)
[2024-09-16] MEDS: IPRATROPIUM BROM 0.5 MG/2.5ML INH SOL NEB SCH (20:18)
[2024-09-16 23:00] VITALS: PULSE 90
[2024-09-16] MEDS: ACETAMINOPHEN 325 MG TAB PO PRN (23:46)
[2024-09-17] VITALS (17 sets, daily range): BP systolic 98–132; BP diastolic 61–87; PULSE 55–83; RESP 16–21; TEMP 97.3–98.2; O2SAT 94–100
[2024-09-17] MEDS: ONDANSETRON HCL 4 MG/2 ML VIAL IV PRN (00:02)
[2024-09-17 07:29] LABS: Basophils # (auto) 0 10 ^3/uL (0-0.2); Basophils % (auto) 0.4 % (0.0-2.0); Eosinophils # (auto) 0.1 10 ^3/uL (0-0.8); Eosinophils % (auto) 3.1 % (0.0-7.0); Hematocrit 35.1 % (41.0-53.0); Hemoglobin 11.9 g/dL (13.5-17.5); Lymphocytes # (auto) 0.3 10 ^3/uL (0.4-5.4); Lymphocytes % (auto) 14.2 % (10.0-50.0); Mean Corpuscular Hemoglobin 32.8 pg (28.0-32.0); Mean Corpuscular Hgb Conc. 33.9 g/dL (32.0-36.0); Mean Corpuscular Volume 96.6 fL (80.0-100.0); Monocytes # (auto) 0.3 10 ^3/uL (0-1.3); Monocytes % (auto) 11.3 % (0.0-12.0); Neutrophils # (auto) 1.6 10 ^3/uL (1.6-8.6); Nucleated Red Blood Cells % 0.1 %; Platelet Count (auto) 133 10^3/uL (140-450); Red Blood Cells 3.63 10^6/uL (4.5-5.90); Red Cell Distribution Width 14.3 % (11.8-14.3); White Blood Cell 2.3 10^3/uL (4.4-10.8)
[2024-09-17 07:42] LABS: Alanine Aminotransferase 10 U/L (7-40); Albumin 3.2 g/dL (3.2-4.8); Anion Gap 5 (5-15); Aspartate Aminotransferase 14 U/L (13-40); BUN/Creatinine Ratio 16.1 (10.0-20.0); Carbon Dioxide 26 mmol/L (20-31); Glucose 98 mg/dL (74-106)
[2024-09-17 07:43] LABS: Alkaline Phosphatase 122 U/L (46-116); Bilirubin, Total 0.2 mg/dL (0.2-1.0); Blood Urea Nitrogen 9 mg/dL (9-23); Calcium 8.3 mg/dL (8.7-10.4); Chloride 96 mmol/L (98-107); Potassium 3.1 mmol/L (3.5-5.1); Sodium 127 mmol/L (136-145); Total Protein 5.3 g/dL (5.7-8.2)
[2024-09-17] MEDS: POTASSIUM CHL 20 Meq TABLET PO ONE (09:10)
--- NOTE | 2024-09-17 12:28 | DVHPN2 ---
Reviewed: Care Plan, H&P, Labs, Medications, Previous Orders, Radiology Changes from previous H/P or p: No Changes Eyes: No Pain, No Vision change, No Conjunctivae inflammation, No Eyelid inflammation, No Other, No Redness ENT: No Ear pain, No Ear discharge, No Nose pain, No Nose discharge, No Nose congestion, No Mouth pain, No Mouth swelling, No Throat pain, No Throat swelling, No Other Cardiovascular: No Chest Pain, No Palpitations, No Orthopnea, No Paroxysmal Noc. Dyspnea, No Edema, No Lt Headedness, No Other Respiratory: No Cough, No Dry; Shortness of breath; No SOB with excertion, No Wheezing, No Hemoptysis, No Pleuritic Pain, No Sputum, No Other Gastrointestinal: No Nausea, No Vomiting, No Abdominal Pain, No Diarrhea, No Constipation, No Melena, No Hematochezia, No Other Genitourinary: No Dysuria, No Frequency, No Incontinence, No Hematuria, No Retention, No Other Musculoskeletal: other (Bilateral lower extremity pain); No neck pain, No shoulder pain, No arm pain; back pain; No hand pain, No leg pain, No foot pain Skin: No Rash, No Lesions, No Jaundice, No Bruising, No Other Objective Vitals Vital Signs Date Time Temp Pulse Resp B/P (MAP) Pulse Ox O2 Delivery O2 Flow Rate FiO2 09/17/24 12:00 69 20 100 09/17/24 11:55 Room Air* 0 21 21 09/17/24 08:55 98.0 103/69 (80) 98.0 Intake/Output Intake and Output 09/17/24 07:00 Intake Total 240 ml Balance 240 ml Intake Oral 100 ml IV Total 140 ml # Voids 2 # Bowel Movements 1 Medications Current Medications Medications Dose Ordered Sig/Margie Route Start Time Stop Time Status Last Admin Dose Admin Sodium Chloride 1,000 ml @ 70 mls/hr [id number] IV 09/16/24 16:15 09/17/24 06:16 70 MLS/HR Ondansetron HCl 4 mg Q4HP PRN IV 09/16/24 16:15 09/17/24 00:02 4 MG Acetaminophen 650 mg Q6HP PRN PO 09/16/24 16:15 09/16/24 23:46 650 MG Albuterol 2.5 mg Q6HWA NEB 09/16/24 18:00 09/17/24 11:50 2.5 MG Albuterol 2.5 mg Q2HPRN PRN [facility] 09/16/24 16:30 Ipratropium [place] 0.5 mg Q6HWA [facility] 09/16/24 18:00 09/17/24 11:50 0.5 MG Ipratropium [place] 0.5 mg Q2HPRN PRN [facility] 09/16/24 16:30 Laboratory Results Laboratory Tests 09/17/24 06:26 Chemistry Test 09/16/24 12:59 09/17/24 06:26 Albumin 4.5 g/dL (3.2-4.8) 3.2 g/dL (3.2-4.8) Calcium Level 9.5 mg/dL (8.7-10.4) 8.3 mg/dL (8.7-10.4) L Magnesium Level 2.2 mg/dL (1.6-2.6) Total Protein 7.4 g/dL (5.7-8.2) 5.3 g/dL (5.7-8.2) L Coagulation Test 09/16/24 12:59 D-Dimer, Quantitative 1.43 mg/L FEU (0.0-0.49) H LFT Test 09/16/24 12:59 09/17/24 06:26 Alanine Aminotransferase (ALT) 13 U/L (7-40) 10 U/L (7-40) Alkaline Phosphatase 164 U/L (46-116) H 122 U/L (46-116) H Aspartate Amino Transferase (AST) 14 U/L (13-40) 14 U/L (13-40) Total Bilirubin 0.2 mg/dL (0.2-1.0) 0.2 mg/dL (0.2-1.0) Urinalysis Test 09/16/24 11:45 Urine Color Yellow (Yellow) Urine Clarity Clear (Clear) Urine pH 6.5 (5.0-9.0) Urine Specific [place] 1.040 (1.001-1.035) Urine Protein 1+ (Negative) H Urine Ketones 2+ (Negative) H Urine Blood Negative /uL (Negative) Urine Nitrite Negative (Negative) Urine Bilirubin Negative (Negative) Urine Urobilinogen 4 mg/dL (Negative) H Urine Leukocyte Esterase Negative /uL (Negative) Urine RBC 1 /hpf (0 - 3) Urine Microscopic WBC 4 /HPF (0-3) H Urine Squamous Epithelial Cells Few /hpf (<5) Urine Bacteria Few /hpf (None Seen) H Urine Mucus Few (None Seen) Urine Glucose Normal mg/dL (Normal) Labs and/or images reviewed: Labs reviewed by me, Image(s) reviewed by me Assessment/Plan Assessment/Plan Intractable abdominal pain Acute dehydration: IV fluids Bradycardia Ketonuria Hyponatremia Hypokalemia Thrombocytopenia Acute hypokalemia Hypertension Depression Schizophrenia Cirrhosis of liver History of GERD History of polysubstance abuse marijuana. Alcohol Plan discussed with: Patient Date of Service: Sep 17, 2024 Billing Provider: ANKUR VELASCO MD Common Visit Codes: [id number] INP/OBS CARE(HIGH) ANKUR VELASCO MD Sep 17, 2024 12:28
--- NOTE | 2024-09-17 13:10 | DVH ---
CLINICAL INFORMATION: 54 years old, Male; Recurrent fall injuries. TECHNIQUE: Axial imaging was obtained through the brain without contrast. Coronal and sagittal refor matted images were obtained, reviewed, and stored. Images were reviewed in brain and bone windows. A ll CT scans at this medical facility are performed using dose modulation techniques as appropriate to a performed exam including the following: Automated exposure control was utilized; adjustment of the MA and/or KV according to patient size; and use of iterative reconstruction technique. CTDIvol = 56.99 mGy DLP = 1066.09 mGy-cm COMPARISON: CT HEAD WITHOUT CONTRAST on DOS: 08/18/23, CT HEAD WITHOUT CONTRAST on DOS: 06/13/23, CT H EAD WITHOUT CONTRAST on DOS: 12/28/22 FINDINGS: There is no acute intracranial hemorrhage or extraaxial fluid collection. No mass effect o r midline shift. The ventricles and sulci are within normal limits in size for age. Basal cisterns a re patent. The calvarium is unremarkable. Paranasal sinuses and mastoid air cells are clear. IMPRESSION: No CT evidence of acute intracranial abnormality.
[2024-09-17] MEDS ORDERED: oxyCODONE ER 10 MG TAB PO SCH (14:00)
[2024-09-17] MEDS: GABAPENTIN 300 MG CAP PO SCH (15:13)
[2024-09-17] MEDS: oxyCODONE ER 10 MG TAB PO SCH (20:41)
[2024-09-17] MEDS: MORPHINE SULF 15mg ER tab PO SCH (21:46)
[2024-09-18] VITALS (15 sets, daily range): BP systolic 116–129; BP diastolic 59–84; PULSE 59–93; RESP 17–20; TEMP 97.3–99.2; O2SAT 96–100
[2024-09-18] MEDS ORDERED: BACLOFEN 10 MG TAB PO PRN (11:00)
--- NOTE | 2024-09-18 11:28 | DVHPN2 ---
Reviewed: Care Plan, H&P, Labs, Medications, Previous Orders, Radiology Changes from previous H/P or p: No Changes Eyes: No Pain, No Vision change, No Conjunctivae inflammation, No Eyelid inflammation, No Other, No Redness ENT: No Ear pain, No Ear discharge, No Nose pain, No Nose discharge, No Nose congestion, No Mouth pain, No Mouth swelling, No Throat pain, No Throat swelling, No Other Cardiovascular: No Chest Pain, No Palpitations, No Orthopnea, No Paroxysmal Noc. Dyspnea, No Edema, No Lt Headedness, No Other Respiratory: No Cough, No Dry; Shortness of breath; No SOB with excertion, No Wheezing, No Hemoptysis, No Pleuritic Pain, No Sputum, No Other Gastrointestinal: No Nausea, No Vomiting, No Abdominal Pain, No Diarrhea, No Constipation, No Melena, No Hematochezia, No Other Genitourinary: No Dysuria, No Frequency, No Incontinence, No Hematuria, No Retention, No Other Musculoskeletal: other (Bilateral lower extremity pain); No neck pain, No shoulder pain, No arm pain; back pain; No hand pain, No leg pain, No foot pain Skin: No Rash, No Lesions, No Jaundice, No Bruising, No Other Objective Vitals Vital Signs Date Time Temp Pulse Resp B/P (MAP) Pulse Ox O2 Delivery O2 Flow Rate FiO2 09/18/24 09:00 98.7 78 20 127/79 (95) 97 98.7 09/18/24 08:00 Room Air* 0 21 Intake/Output Intake and Output 09/18/24 07:00 Intake Total 1620 ml Output Total 450 ml Balance 1170 ml Intake Oral 920 ml IV Total 700 ml Output Urine Total 450 ml # Voids 6 Medications Current Medications Medications Dose Ordered Sig/Margie Route Start Time Stop Time Status Last Admin Dose Admin Sodium Chloride 1,000 ml @ 70 mls/hr [id number] IV 09/16/24 16:15 09/17/24 21:45 70 MLS/HR Ondansetron HCl 4 mg Q4HP PRN IV 09/16/24 16:15 09/17/24 00:02 4 MG Acetaminophen 650 mg Q6HP PRN PO 09/16/24 16:15 09/17/24 16:08 650 MG Albuterol 2.5 mg Q6HWA NEB 09/16/24 18:00 09/18/24 06:39 2.5 MG Albuterol 2.5 mg Q2HPRN PRN NEB 09/16/24 16:30 Ipratropium [place] 0.5 mg Q6HWA NEB 09/16/24 18:00 09/18/24 06:39 0.5 MG Ipratropium [place] 0.5 mg Q2HPRN PRN NEB 09/16/24 16:30 Morphine Sulfate 15 mg Q12HR PO 09/17/24 22:00 09/18/24 09:59 15 MG Gabapentin 300 mg TID PO 09/17/24 14:00 09/18/24 05:25 300 MG Oxycodone HCl 10 mg Q12HR PO 09/17/24 22:00 09/18/24 10:00 10 MG Trazodone HCl 100 mg HS PO 09/18/24 22:00 UNV Spironolactone 50 mg BIDD PO 09/18/24 18:00 UNV Quetiapine Fumarate 100 mg HS PO 09/18/24 22:00 UNV Furosemide 40 mg DAILY PO 09/19/24 10:00 UNV Potassium Chloride 10 meq DAILY PO 09/19/24 10:00 UNV Thiamine HCl 100 mg DAILY PO 09/19/24 10:00 UNV Folic Acid 1 mg DAILY PO 09/19/24 10:00 UNV Ferrous Sulfate 325 mg BIDWM PO 09/18/24 18:00 UNV Duloxetine HCl 60 mg DAILY PO 09/19/24 10:00 UNV Baclofen 10 mg Q8HP PRN PO 09/18/24 11:00 UNV Citalopram Hydrobromide 40 mg DAILY PO 09/19/24 10:00 UNV Laboratory Results Laboratory Tests 09/17/24 06:26 Urinalysis Test 09/16/24 11:45 Urine Color Yellow (Yellow) Urine Clarity Clear (Clear) Urine pH 6.5 (5.0-9.0) Urine Specific [place] 1.040 (1.001-1.035) Urine Protein 1+ (Negative) H Urine Ketones 2+ (Negative) H Urine Blood Negative /uL (Negative) Urine Nitrite Negative (Negative) Urine Bilirubin Negative (Negative) Urine Urobilinogen 4 mg/dL (Negative) H Urine Leukocyte Esterase Negative /uL (Negative) Urine RBC 1 /hpf (0 - 3) Urine Microscopic WBC 4 /HPF (0-3) H Urine Squamous Epithelial Cells Few /hpf (<5) Urine Bacteria Few /hpf (None Seen) H Urine Mucus Few (None Seen) Urine Glucose Normal mg/dL (Normal) Labs and/or images reviewed: Labs reviewed by me, Image(s) reviewed by me Assessment/Plan Assessment/Plan Intractable abdominal pain Acute dehydration: IV fluids Bradycardia Ketonuria Hyponatremia Hypokalemia Thrombocytopenia Hypertension Depression Celexa Seroquel Cymbalta Peripheral neuropathy Gabapentin Schizophrenia Cirrhosis of liver Chronic Pain syndrome: Oxycodone History of GERD History of polysubstance abuse marijuana. Current alcohol abuse: Counseling thiamine folic acid Patient's father Darryn at bedside Plan discussed with: Patient My Orders Orders - ANKUR VELASCO MD Procedure Category Date Status Time Morphine Extended PHA 09/17/24 In Process Release Tab (Oramorph 22:00 Gabapentin Capsule PHA 09/17/24 In Process (Neurontin Capsule) 14:[address] 09/17/24 Resulted 12:41 Oxycodone Er Tablet PHA 09/17/24 In Process (Oxycontin Er Tablet 22:00 Trazodone Hcl PHA 09/18/24 Logged (Desyrel) 22:00 Spironolactone PHA 09/18/24 Logged (Aldactone) 18:00 Quetiapine Fumarate PHA 09/18/24 Logged Tablet (Seroquel Tab 22:00 Furosemide Tablet PHA 09/19/24 Logged (Lasix Tablet) 10:00 Potassium Er Tablet PHA 09/19/24 Logged (Klor-Con Tablet) 10:00 Thiamine Tab PHA 09/19/24 Logged 10:00 Folic Acid Tablet PHA 09/19/24 Logged 10:00 Ferrous Sulfate Tablet PHA 09/18/24 Logged 18:00 Duloxetine Hcl PHA 09/19/24 Logged Capsule (Cymbalta 10:00 Baclofen Tablet PHA 09/18/24 Logged (Liorisal Tablet) 11:00 Citalopram Tablet PHA 09/19/24 Logged (Celexa Tablet) 10:00 Complete Blood Count LAB 09/19/24 Verified 04:00 Comprehensive LAB 09/19/24 Verified Metabolic Panel 04:00 Ammonia LAB 09/19/24 Verified 04:00 Date of Service: Sep 18, 2024 Billing Provider: ANKUR VELASCO MD Common Visit Codes: [id number] INP/OBS CARE(HIGH) ANKUR VELASCO MD Sep 18, 2024 11:28
[2024-09-18] MEDS: SPIRONOLACTONE 25 MG TAB PO SCH (18:15)
[2024-09-18] MEDS: FERROUS SULFATE 325mg EC TAB PO SCH (18:15)
[2024-09-18] MEDS: QUEtiapine FUMARATE 100 MG TAB PO SCH (21:50)
[2024-09-18] MEDS: traZODone HCL 50 MG TAB PO SCH (22:00)
[2024-09-19] VITALS (16 sets, daily range): BP systolic 106–137; BP diastolic 75–96; PULSE 60–87; RESP 16–20; TEMP 97.9–99; O2SAT 92–100
[2024-09-19 09:37] LABS: Basophils # (auto) 0 10 ^3/uL (0-0.2); Basophils % (auto) 0.4 % (0.0-2.0); Eosinophils # (auto) 0.1 10 ^3/uL (0-0.8); Eosinophils % (auto) 3.5 % (0.0-7.0); Hematocrit 39.2 % (41.0-53.0); Hemoglobin 12.8 g/dL (13.5-17.5); Lymphocytes # (auto) 0.5 10 ^3/uL (0.4-5.4); Lymphocytes % (auto) 16.6 % (10.0-50.0); Mean Corpuscular Hemoglobin 32.5 pg (28.0-32.0); Mean Corpuscular Hgb Conc. 32.6 g/dL (32.0-36.0); Mean Corpuscular Volume 99.8 fL (80.0-100.0); Monocytes # (auto) 0.4 10 ^3/uL (0-1.3); Monocytes % (auto) 12.8 % (0.0-12.0); Neutrophils # (auto) 2.1 10 ^3/uL (1.6-8.6); Neutrophils % (auto) 66.7 % (37.0-80.0); Nucleated Red Blood Cells % 0.2 %; Platelet Count (auto) 151 10^3/uL (140-450); Red Blood Cells 3.93 10^6/uL (4.5-5.90); Red Cell Distribution Width 14.6 % (11.8-14.3); White Blood Cell 3.2 10^3/uL (4.4-10.8)
[2024-09-19] MEDS: POTASSIUM CHL 10 Meq TABLET PO SCH (09:42)
[2024-09-19] MEDS: DULoxetine HCL 30 MG CAP PO SCH (09:42)
[2024-09-19] MEDS: FUROSEMIDE 40 MG TAB PO SCH (09:43)
[2024-09-19] MEDS: CITALOPRAM HYDROBR 20 MG TAB PO SCH (09:43)
[2024-09-19] MEDS: THIAMINE HCL 100 MG TAB PO SCH (09:44)
[2024-09-19] MEDS: FOLIC ACID 1 MG TAB PO SCH (09:44)
[2024-09-19 09:55] LABS: Alanine Aminotransferase 13 U/L (7-40); Albumin 3.8 g/dL (3.2-4.8); Anion Gap 8 (5-15); Aspartate Aminotransferase 16 U/L (13-40); BUN/Creatinine Ratio 10.3 (10.0-20.0); Calcium 8.9 mg/dL (8.7-10.4); Carbon Dioxide 24 mmol/L (20-31); Chloride 102 mmol/L (98-107); Potassium 3.7 mmol/L (3.5-5.1)
[2024-09-19 09:56] LABS: Alkaline Phosphatase 126 U/L (46-116); Bilirubin, Total 0.3 mg/dL (0.2-1.0); Blood Urea Nitrogen 7 mg/dL (9-23); Glucose 116 mg/dL (74-106); Sodium 134 mmol/L (136-145); Total Protein 6.3 g/dL (5.7-8.2)
[2024-09-19] MEDS: FOLIC ACID 1 MG, MULTIPLE VITAMIN 10 ML, MAGNESIUM SULF SDV 50% 8 MEQ, THIAMINE INJ 100... INJ SCH (19:38)
[2024-09-20] VITALS (13 sets, daily range): BP systolic 110–165; BP diastolic 71–96; PULSE 52–95; RESP 14–19; TEMP 97.9–98.4; O2SAT 66–100
--- NOTE | 2024-09-20 13:49 | DVHPN2 ---
Reviewed: Care Plan, H&P, Labs, Medications, Previous Orders, Radiology Changes from previous H/P or p: No Changes Eyes: No Pain, No Vision change, No Conjunctivae inflammation, No Eyelid inflammation, No Other, No Redness ENT: No Ear pain, No Ear discharge, No Nose pain, No Nose discharge, No Nose congestion, No Mouth pain, No Mouth swelling, No Throat pain, No Throat swelling, No Other Cardiovascular: No Chest Pain, No Palpitations, No Orthopnea, No Paroxysmal Noc. Dyspnea, No Edema, No Lt Headedness, No Other Respiratory: No Cough, No Dry; Shortness of breath; No SOB with excertion, No Wheezing, No Hemoptysis, No Pleuritic Pain, No Sputum, No Other Gastrointestinal: No Nausea, No Vomiting, No Abdominal Pain, No Diarrhea, No Constipation, No Melena, No Hematochezia, No Other Genitourinary: No Dysuria, No Frequency, No Incontinence, No Hematuria, No Retention, No Other Musculoskeletal: other (Bilateral lower extremity pain); No neck pain, No shoulder pain, No arm pain; back pain; No hand pain, No leg pain, No foot pain Skin: No Rash, No Lesions, No Jaundice, No Bruising, No Other Objective Vitals Vital Signs Date Time Temp Pulse Resp B/P (MAP) Pulse Ox O2 Delivery O2 Flow Rate FiO2 09/20/24 13:00 98.2 64 18 141/96 (111) 96 98.2 09/20/24 08:15 Room Air* 0 21 Intake/Output Intake and Output 09/20/24 07:00 Intake Total 3253.2 ml Output Total 1000 ml Balance 2253.2 ml Intake Oral 2100 ml IV Total 1153.2 ml Output Urine Total 1000 ml # Voids 6 # Bowel Movements 2 Medications Current Medications Medications Dose Ordered Sig/Margie Route Start Time Stop Time Status Last Admin Dose Admin Sodium Chloride 1,000 ml @ 70 mls/hr [id number] IV 09/16/24 16:15 09/20/24 04:58 70 MLS/HR Ondansetron HCl 4 mg Q4HP PRN IV 09/16/24 16:15 09/17/24 00:02 4 MG Acetaminophen 650 mg Q6HP PRN PO 09/16/24 16:15 09/17/24 16:08 650 MG Albuterol 2.5 mg Q2HPRN PRN NEB 09/16/24 16:30 Ipratropium [place] 0.5 mg Q2HPRN PRN NEB 09/16/24 16:30 Morphine Sulfate 15 mg Q12HR PO 09/17/24 22:00 09/20/24 10:00 15 MG Gabapentin 300 mg TID PO 09/17/24 14:00 09/20/24 05:14 300 MG Oxycodone HCl 10 mg Q12HR PO 09/17/24 22:00 09/20/24 10:34 10 MG Trazodone HCl 100 mg HS PO 09/18/24 22:00 Spironolactone 50 mg BIDD PO 09/18/24 18:00 09/20/24 05:14 50 MG Quetiapine Fumarate 100 mg HS PO 09/18/24 22:00 09/19/24 21:36 100 MG Furosemide 40 mg DAILY PO 09/19/24 10:00 09/20/24 10:37 40 MG Potassium Chloride 10 meq DAILY PO 09/19/24 10:00 09/20/24 10:36 10 MEQ Ferrous Sulfate 325 mg BIDWM PO 09/18/24 18:00 09/20/24 10:36 325 MG Duloxetine HCl 60 mg DAILY PO 09/19/24 10:00 09/20/24 10:35 60 MG Baclofen 10 mg Q8HP PRN PO 09/18/24 11:00 Citalopram Hydrobromide 40 mg DAILY PO 09/19/24 10:00 09/20/24 10:36 40 MG Folic Acid 1 mg/ Multivitamins 10 ml/Magnesium Sulfate 8 meq/ Thiamine HCl 100 mg/Dextrose 1,013.2 ml @ 125.001 mls/hr DAILY@1800 INJ 09/19/24 18:00 09/19/24 19:38 125.001 MLS/HR Laboratory Results Laboratory Tests 09/19/24 08:13 Urinalysis Test 09/16/24 11:45 Urine Color Yellow (Yellow) Urine Clarity Clear (Clear) Urine pH 6.5 (5.0-9.0) Urine Specific [place] 1.040 (1.001-1.035) Urine Protein 1+ (Negative) H Urine Ketones 2+ (Negative) H Urine Blood Negative /uL (Negative) Urine Nitrite Negative (Negative) Urine Bilirubin Negative (Negative) Urine Urobilinogen 4 mg/dL (Negative) H Urine Leukocyte Esterase Negative /uL (Negative) Urine RBC 1 /hpf (0 - 3) Urine Microscopic WBC 4 /HPF (0-3) H Urine Squamous Epithelial Cells Few /hpf (<5) Urine Bacteria Few /hpf (None Seen) H Urine Mucus Few (None Seen) Urine Glucose Normal mg/dL (Normal) Labs and/or images reviewed: Labs reviewed by me, Image(s) reviewed by me Assessment/Plan Assessment/Plan Intractable abdominal pain Acute dehydration: IV fluids Bradycardia Ketonuria Hyponatremia Hypokalemia Thrombocytopenia Hypertension Depression Celexa Seroquel Cymbalta Peripheral neuropathy Gabapentin Schizophrenia Cirrhosis of liver Chronic Pain syndrome: Oxycodone History of GERD History of polysubstance abuse marijuana. Current alcohol abuse: Counseling thiamine folic acid Patient's father Darryn at bedside Plan discussed with: Patient My Orders Orders - ANKUR VELASCO MD Procedure Category Date Status Time Pregabalin Capsule PHA 09/20/24 Verified (Lyrica Capsule) 22:00 Date of Service: Sep 19, 2024 Billing Provider: ANKUR VELASCO MD Common Visit Codes: [id number] INP/OBS CARE(HIGH) ANKUR VELASCO MD Sep 20, 2024 13:49
--- NOTE | 2024-09-20 13:50 | DVHPN2 ---
Reviewed: Care Plan, H&P, Labs, Medications, Previous Orders, Radiology Changes from previous H/P or p: No Changes Eyes: No Pain, No Vision change, No Conjunctivae inflammation, No Eyelid inflammation, No Other, No Redness ENT: No Ear pain, No Ear discharge, No Nose pain, No Nose discharge, No Nose congestion, No Mouth pain, No Mouth swelling, No Throat pain, No Throat swelling, No Other Cardiovascular: No Chest Pain, No Palpitations, No Orthopnea, No Paroxysmal Noc. Dyspnea, No Edema, No Lt Headedness, No Other Respiratory: No Cough, No Dry; Shortness of breath; No SOB with excertion, No Wheezing, No Hemoptysis, No Pleuritic Pain, No Sputum, No Other Gastrointestinal: No Nausea, No Vomiting, No Abdominal Pain, No Diarrhea, No Constipation, No Melena, No Hematochezia, No Other Genitourinary: No Dysuria, No Frequency, No Incontinence, No Hematuria, No Retention, No Other Musculoskeletal: other (Bilateral lower extremity pain); No neck pain, No shoulder pain, No arm pain; back pain; No hand pain, No leg pain, No foot pain Skin: No Rash, No Lesions, No Jaundice, No Bruising, No Other Objective Vitals Vital Signs Date Time Temp Pulse Resp B/P (MAP) Pulse Ox O2 Delivery O2 Flow Rate FiO2 09/20/24 13:00 98.2 64 18 141/96 (111) 96 98.2 09/20/24 08:15 Room Air* 0 21 Intake/Output Intake and Output 09/20/24 07:00 Intake Total 3253.2 ml Output Total 1000 ml Balance 2253.2 ml Intake Oral 2100 ml IV Total 1153.2 ml Output Urine Total 1000 ml # Voids 6 # Bowel Movements 2 Medications Current Medications Medications Dose Ordered Sig/Margie Route Start Time Stop Time Status Last Admin Dose Admin Sodium Chloride 1,000 ml @ 70 mls/hr [id number] IV 09/16/24 16:15 09/20/24 04:58 70 MLS/HR Ondansetron HCl 4 mg Q4HP PRN IV 09/16/24 16:15 09/17/24 00:02 4 MG Acetaminophen 650 mg Q6HP PRN PO 09/16/24 16:15 09/17/24 16:08 650 MG Albuterol 2.5 mg Q2HPRN PRN NEB 09/16/24 16:30 Ipratropium [place] 0.5 mg Q2HPRN PRN NEB 09/16/24 16:30 Morphine Sulfate 15 mg Q12HR PO 09/17/24 22:00 09/20/24 10:00 15 MG Gabapentin 300 mg TID PO 09/17/24 14:00 09/20/24 05:14 300 MG Oxycodone HCl 10 mg Q12HR PO 09/17/24 22:00 09/20/24 10:34 10 MG Trazodone HCl 100 mg HS PO 09/18/24 22:00 Spironolactone 50 mg BIDD PO 09/18/24 18:00 09/20/24 05:14 50 MG Quetiapine Fumarate 100 mg HS PO 09/18/24 22:00 09/19/24 21:36 100 MG Furosemide 40 mg DAILY PO 09/19/24 10:00 09/20/24 10:37 40 MG Potassium Chloride 10 meq DAILY PO 09/19/24 10:00 09/20/24 10:36 10 MEQ Ferrous Sulfate 325 mg BIDWM PO 09/18/24 18:00 09/20/24 10:36 325 MG Duloxetine HCl 60 mg DAILY PO 09/19/24 10:00 09/20/24 10:35 60 MG Baclofen 10 mg Q8HP PRN PO 09/18/24 11:00 Citalopram Hydrobromide 40 mg DAILY PO 09/19/24 10:00 09/20/24 10:36 40 MG Folic Acid 1 mg/ Multivitamins 10 ml/Magnesium Sulfate 8 meq/ Thiamine HCl 100 mg/Dextrose 1,013.2 ml @ 125.001 mls/hr DAILY@1800 INJ 09/19/24 18:00 09/19/24 19:38 125.001 MLS/HR Laboratory Results Laboratory Tests 09/19/24 08:13 Urinalysis Test 09/16/24 11:45 Urine Color Yellow (Yellow) Urine Clarity Clear (Clear) Urine pH 6.5 (5.0-9.0) Urine Specific [place] 1.040 (1.001-1.035) Urine Protein 1+ (Negative) H Urine Ketones 2+ (Negative) H Urine Blood Negative /uL (Negative) Urine Nitrite Negative (Negative) Urine Bilirubin Negative (Negative) Urine Urobilinogen 4 mg/dL (Negative) H Urine Leukocyte Esterase Negative /uL (Negative) Urine RBC 1 /hpf (0 - 3) Urine Microscopic WBC 4 /HPF (0-3) H Urine Squamous Epithelial Cells Few /hpf (<5) Urine Bacteria Few /hpf (None Seen) H Urine Mucus Few (None Seen) Urine Glucose Normal mg/dL (Normal) Labs and/or images reviewed: Labs reviewed by me, Image(s) reviewed by me Assessment/Plan Assessment/Plan Intractable abdominal pain Acute dehydration: IV fluids Bradycardia Ketonuria Hyponatremia Hypokalemia Thrombocytopenia Hypertension Depression Celexa Seroquel Cymbalta Peripheral neuropathy Gabapentin Schizophrenia Cirrhosis of liver Chronic Pain syndrome: Oxycodone History of GERD History of polysubstance abuse marijuana. Banana bag Current alcohol abuse: Counseling thiamine folic acid Patient's father Darryn at bedside Plan discussed with: Patient My Orders Orders - ANKUR VELASCO MD Procedure Category Date Status Time Pregabalin Capsule PHA 09/20/24 Verified (Lyrica Capsule) 22:00 Date of Service: Sep 20, 2024 Billing Provider: ANKUR VELASCO MD Common Visit Codes: [id number] INP/OBS CARE(HIGH) ANKUR VELASCO MD Sep 20, 2024 13:50
[2024-09-20] MEDS ORDERED: BACLOFEN 10 MG TAB PO PRN (14:00)
[2024-09-20] MEDS: BACLOFEN 10 MG TAB PO SCH (14:47)
[2024-09-20] MEDS: PREGABALIN CAPSULE 75 MG CAP PO SCH (21:13)
[2024-09-21] VITALS (9 sets, daily range): BP systolic 95–128; BP diastolic 63–89; PULSE 60–88; RESP 16–20; TEMP 97.9–98.6; O2SAT 91–99
--- NOTE | 2024-09-21 12:58 | DVHDS2 ---
Discharge Summary Date of Admission Sep 16, 2024 at 16:11 Date of Discharge: Sep 21, 2024 Admitting Diagnosis Nausea and vomiting abdominal pain Wounds: None Labs/Diagnostic Data: Laboratory Results Test 09/19/24 15:47 09/19/24 08:13 09/16/24 12:59 09/16/24 11:45 Troponin I High Sensitivity < 3 ng/L (</=54) White Blood Count 3.2 10^3/uL (4.4-10.8) Red Blood Count 3.93 10^6/uL (4.5-5.90) Hemoglobin 12.8 g/dL (13.5-17.5) Hematocrit 39.2 % (41.0-53.0) Mean Corpuscular Volume 99.8 fL (80.0-100.0) Mean Corpuscular Hemoglobin 32.5 pg (28.0-32.0) Mean Corpuscular Hemoglobin Concent 32.6 g/dL (32.0-36.0) Red Cell Distribution Width 14.6 % (11.8-14.3) Platelet Count 151 10^3/uL (140-450) Mean Platelet Volume 9.2 fL (6.9-10.8) Neutrophils (%) (Auto) 66.7 % (37.0-80.0) Lymphocytes (%) (Auto) 16.6 % (10.0-50.0) Monocytes (%) (Auto) 12.8 % (0.0-12.0) Eosinophils (%) (Auto) 3.5 % (0.0-7.0) Basophils (%) (Auto) 0.4 % (0.0-2.0) Neutrophils # (Auto) 2.1 10 ^3/uL (1.6-8.6) Lymphocytes # (Auto) 0.5 10 ^3/uL (0.4-5.4) Monocytes # (Auto) 0.4 10 ^3/uL (0-1.3) Eosinophils # (Auto) 0.1 10 ^3/uL (0-0.8) Basophils # (Auto) 0 10 ^3/uL (0-0.2) Nucleated Red Blood Cells 0.2 % Sodium Level 134 mmol/L (136-145) Potassium Level 3.7 mmol/L (3.5-5.1) Chloride Level 102 mmol/L (98-107) Carbon Dioxide Level 24 mmol/L (20-31) Anion Gap 8 (5-15) Blood Urea Nitrogen 7 mg/dL (9-23) Creatinine 0.68 mg/dL (0.700-1.30) Glomerular Filtration Rate Calc 109 mL/min (>90) BUN/Creatinine Ratio 10.3 (10.0-20.0) Serum Glucose 116 mg/dL (74-106) Calcium Level 8.9 mg/dL (8.7-10.4) Total Bilirubin 0.3 mg/dL (0.2-1.0) Aspartate Amino Transferase (AST) 16 U/L (13-40) Alanine Aminotransferase (ALT) 13 U/L (7-40) Alkaline Phosphatase 126 U/L (46-116) Ammonia 25 umol/L (11-32) Total Protein 6.3 g/dL (5.7-8.2) Albumin 3.8 g/dL (3.2-4.8) D-Dimer, Quantitative 1.43 mg/L FEU (0.0-0.49) Magnesium Level 2.2 mg/dL (1.6-2.6) Urine Color Yellow (Yellow) Urine Clarity Clear (Clear) Urine pH 6.5 (5.0-9.0) Urine Specific [place] 1.040 (1.001-1.035) Urine Protein 1+ (Negative) Urine Ketones 2+ (Negative) Urine Blood Negative /uL (Negative) Urine Nitrite Negative (Negative) Urine Bilirubin Negative (Negative) Urine Urobilinogen 4 mg/dL (Negative) Urine Leukocyte Esterase Negative /uL (Negative) Urine RBC 1 /hpf (0 - 3) Urine Microscopic WBC 4 /HPF (0-3) Urine Squamous Epithelial Cells Few /hpf (<5) Urine Bacteria Few /hpf (None Seen) Urine Mucus Few (None Seen) Urine Glucose Normal mg/dL (Normal) Urine Opiates Screen Pos (NEGATIVE) Urine Fentanyl Screen Neg (NEGATIVE) Urine Barbiturates Screen Neg (NEGATIVE) Urine Phencyclidine Screen Neg (NEGATIVE) Urine Amphetamines Screen Neg (NEGATIVE) Urine Benzodiazepines Screen Neg (NEGATIVE) Urine Cocaine Screen Neg (NEGATIVE) Urine Cannabinoids Screen Pos (NEGATIVE) Test 09/16/24 00:20 09/16/24 00:16 B-Type Natriuretic Peptide 53.45 pg/mL (0-100) Plasma/Serum Blood Alcohol 5.0 mg/dL (<10) POC Glucose 117 mg/dl (70-106) Other Laboratory Tests 09/19/24 08:13 Brief Hx & Hospital Course: 54-year-old male with a history of chronic alcohol abuse depression chronic pain syndrome schizophrenia cirrhosis of liver GERD polysubstance abuse including alcohol came in complaining of abdominal pain nausea and vomiting. Patient was found to be in dehydration with hyponatremia hypokalemia. Given IV fluids pantoprazole banana bag with a which has improved. Being discharged home to continue home medications and follow up with his primary Dr Consults/Reason for consult None Operations or Procedures CT abdomen pelvis without contrast Condition at Discharge: Fair Final Diagnosis/Problems List Intractable abdominal pain Acute dehydration: IV fluids Bradycardia Ketonuria Hyponatremia Hypokalemia Thrombocytopenia Hypertension Depression Celexa Seroquel Cymbalta Peripheral neuropathy Gabapentin Schizophrenia Cirrhosis of liver Chronic Pain syndrome: Oxycodone History of GERD History of polysubstance abuse marijuana. Banana bag Current alcohol abuse: Counseling thiamine folic acid Discharge Disposition: Home Discharge Instruct/Medications Diet: Cardiac 2g Na,low cholest Activity: Light activity Follow Up/Referral: Resume all previous home medications Stop drinking alcohol Follow up with your primary Dr Medications: None 35 (Time Taken for discharge summary 35 minutes) Discharge Statement: "Patient was advised to return to the ER or call 911 if any headaches, dizziness, shortness of breath, chest pain, abdominal pain, bleeding, fevers, or worsening of medical condition. Patient was counseled about treatment plan, medications, possible side effects, patientverbalized understanding. All questions were answered to the best of my ability. This discharge took greater then 30 minutes in planning, reviewing documentation, counseling the patient, and discussing with other team members." ASSESSMENT ASSESSMENT Hospital Course Uneventful Assessment Intractable abdominal pain Acute dehydration: IV fluids Bradycardia Ketonuria Hyponatremia Hypokalemia Thrombocytopenia Hypertension Depression Celexa Seroquel Cymbalta Peripheral neuropathy Gabapentin Schizophrenia Cirrhosis of liver Chronic Pain syndrome: Oxycodone History of GERD History of polysubstance abuse marijuana. Banana bag Current alcohol abuse: Counseling thiamine folic acid Date of Service: Sep 21, 2024 Billing Provider: ANKUR VELASCO MD Common Visit Codes: 36081-UTX/OBS DISCH DAY >30min ANKUR VEALSCO MD Sep 21, 2024 12:58
[2024-09-21] MEDS ORDERED: THIAMINE HCL 100 MG TAB PO ONE (16:00)
[2024-09-21] MEDS ORDERED: MAGNESIUM OXIDE 400 MG TAB PO ONE (16:00)
[2024-09-21] MEDS ORDERED: MULTIPLE VITAMIN TAB PO ONE (16:00)
[2024-09-21] MEDS ORDERED: FOLIC ACID 1 MG TAB PO ONE (16:00)
--- NOTE | 2024-09-22 07:59 | ECG ---
[facility] Test Date: 2024-09-21 Test Time: 12:03:36 Pat Name: JENSEN BACK Department: Room: 0295T B Gender: M Rn Training: [employer]IVER : 1970 Requested By: ANKUR VELASCO Order Number: [id number] Reading MD: Measurements Intervals [place] Rate: 75 P: 21 AK: 172 QRS: 55 QRSD: 118 T: 3 QT: 418 QTc: 467 Interpretive Statements Sinus rhythm Nonspecific intraventricular conduction delay Low voltage, precordial leads Please click the below link to view image of tracing.
[2024-09-22] MEDS ORDERED: FOLIC ACID 1 MG TAB PO SCH (10:00)
[2024-09-22] MEDS ORDERED: MAGNESIUM OXIDE 400 MG TAB PO SCH (10:00)
[2024-09-22] MEDS ORDERED: THIAMINE HCL 100 MG TAB PO SCH (10:00)
[2024-09-22] MEDS ORDERED: MULTIPLE VITAMIN TAB PO SCH (10:00)
== END 2024-09-21 17:00 | disposition home or self-care (01) | DRG 641 ==
LOC: EDBD → ER → OVERFLOW 16:11 → TELE-WESTW 22:30
PROVIDERS: ADMIT Family Medicine; ATTEND Family Medicine
DX: E87.6 Hypokalemia (principal); K29.70 Gastritis, unspecified, without bleeding; E87.1 Hypo-osmolality and hyponatremia; E86.0 Dehydration; D69.6 Thrombocytopenia, unspecified; F32.A Depression, unspecified; F20.9 Schizophrenia, unspecified; K74.60 Unspecified cirrhosis of liver; G89.4 Chronic pain syndrome; F17.210 Nicotine dependence, cigarettes, uncomplicated; I50.9 Heart failure, unspecified; I11.0 Hypertensive heart disease with heart failure; K21.9 Gastro-esophageal reflux disease without esophagitis; G62.9 Polyneuropathy, unspecified; F10.10 Alcohol abuse, uncomplicated; Z88.5 Allergy status to narcotic agent; Z79.899 Other long term (current) drug therapy; Z90.49 Acquired absence of other specified parts of digestive tract; Y90.0 Blood alcohol level of less than 20 mg/100 ml; R82.4 Acetonuria; R00.1 Bradycardia, unspecified
CPT/HCPCS: 36415; 70450; 71045; 71275; 80053; 80307; 80320; 81001; 82140; 82962; 83735; 83880; 84484; 85025; 85379; 93005; 93970; 94640; G0378; J2405

== ENCOUNTER 2025-05-25 07:12 | Inpatient (IN) | payer MEDICARE, MEDICAID ==
[~2025-05-25] VITALS: Ht 185.4 cm; Wt 114.0 kg
--- NOTE | 2025-05-25 07:17 | ECG ---
[facility] Test Date: 2025-05-25 Test Time: 07:12:17 Pat Name: JENSEN BACK Department: [facility] ED Patient ID: [id number] Room: 0292T Gender: M Director [employer]: ZEINAB : 1970 Requested By: VIRGINIA FULLER Order Number: [id number] Reading MD: Lavell Levi Measurements Intervals [place] Rate: 76 P: 31 NV: 194 QRS: 33 QRSD: 112 T: 37 QT: 409 QTc: 460 Interpretive Statements Sinus rhythm Incomplete right bundle branch block Baseline wander in lead(s) I Electronically Signed On 05-30-2025 14:17:33 PDT by Lavell Levi Please click the below link to view image of tracing.
--- NOTE | 2025-05-25 08:04 | ED.PDOC ---
History of Present Illness HPI Comments This is a 55 year old male EILEEN presenting to the ED with chief complaint of generalized weakness. Patient reports that he has been on a recent ETOH binge for 2 days drinking between 6-10 beers a day. Patient relays that his last drink was 2 days ago. Patient states that he has had multiple falls since then with associated substernal chest pain, dizziness, and lightheadedness. Patient notes he called EMS this morning due to not being able to get up from another fall he had today. Patient denies any SOB, syncope, N/V/D, abdominal pain, or headache. Chief Complaint: General Weakness Time Seen by MD: 07:32 Primary Care Provider: ARACELI Reviewed Notes: Nurses Notes, Spray Machine Tender Notes, Medications, Allergies Allergies: Coded Allergies: NO KNOWN ALLERGIES (Unverified , 09/17/24) Home Meds Active Scripts Chlordiazepoxide Hcl (Ni-1) (I (Librium) 10 Mg Cap, 10 MG PO BID for 7 Days, #14 CAP Prov:RODERICK REBOLLEDO MD 08/18/23 Morphine Sulfate (Morphine Sulfate) 15 Mg Tab, 1 TAB PO BID PRN, #60 TAB Prov:ANKUR VELASCO MD 12/06/22 Potassium Chloride (Klor-Con 10) 10 Meq Tab, 10 MEQ PO DAILY for 30 Days, #30 TAB 2 Refills Prov:MAGUI BARAHONA MD 11/02/21 Furosemide (Lasix) 40 Mg Tab, 40 MG PO QAM for 30 Days, #30 TAB 2 Refills Prov:MAGUI BARAHONA MD 11/02/21 Spironolactone (Aldactone) 25 Mg Tab, 50 MG PO BIDD for 30 Days, #60 TAB 2 Refills Prov:MAGUI BARAHONA MD 11/02/21 Ferrous Sulfate (Ferrous Sulfate) 325 Mg Tab, 2 TAB PO DAILY for 10 Days, #10 MG Prov:Kami Wilson 10/30/21 Reported Medications Oxycodone W/ Acetaminophen (Apap/Oxycodone) 1 Tab Tab, 1 TAB PO QID 08/21/23 Duloxetine HCl (Duloxetine HCl) 60 Mg Cap, 60 MG PO QAM, CAP 08/21/23 Quetiapine Fumerate (Seroquel Xr) 150 Mg Tab, 150 MG PO HS, TAB 08/21/23 Ergocalciferol (VITAMIN D 65533 UNIT) 50,000 [place], [address] UNIT PO WEEKLY, CAP 10/30/21 Thiamine Mononitrate (Vitamin B-1) 100 Mg Tab, 100 MG PO DAILY, TAB 10/30/21 Pantoprazole Sodium Sesquihydr (Protonix) 40 Mg Tab, 40 MG PO DAILY, #30 TAB 10/30/21 Baclofen (Baclofen) 20 Mg Tab, 1 TAB PO QID, #90 TAB 2 Refills 10/30/21 Folic Acid (Folic Acid) 1 Mg Tab, 1 MG PO DAILY, TAB 10/30/21 Gabapentin (Gabapentin) 800 Mg Tab, 800 MG PO QID, TAB 10/30/21 Trazodone HCl (Trazodone Hydrocloride) 100 Mg Tab, 100 MG PO HS, TAB 10/03/21 Citalopram Hydrobromide (Celexa) 40 Mg Tab, 40 MG PO DAILY, TAB 10/13/20 Information Source: Patient, Emergency Med Personnel Mode of Arrival: EMS Severity: Moderate Timing: Hours Duration: Since onset Prehospital treatment: None Past Medical History PAST MEDICAL HISTORY: Anxiety, Depression, GERD, HTN, Liver, Schizophrenia Surgical History: Appendectomy, Cholecystectomy, Hernia Repair Family History Family History: Reviewed,noncontributory to illness Social History Smoker: Cigarettes Alcohol: Heavy Drugs: Denies Drug Use Lives In: Home Constitutional: reports: weakness; denies: chills, diaphoresis, fatigue, fever, malaise, sweats, others EENTM: denies: blurred vision, double vision, ear bleeding, ear discharge, ear drainage, ear pain, ear ringing, eye pain, eye redness, hearing loss, mouth pain, mouth swelling, nasal discharge, nose bleeding, nose congestion, nose pain, photophobia, tearing, throat pain, throat swelling, voice changes, others Respiratory: denies: cough, hemoptysis, orthopnea, SOB at rest, shortness of breath, SOB with excertion, stridor, wheezing, others Cardiovascular: denies: chest pain, dizzy spells, diaphoresis, Dyspnea on exertion, edema, irregular heart beat, left arm pain, lightheadedness, palpitations, PND, syncope, others Gastrointestinal: denies: abdomen distended, abdominal pain, blood streaked bowels, constipated, diarrhea, dysphagia, difficulty swallowing, hematemesis, melena, nausea, poor appetite, poor fluid intake, rectal bleeding, rectal pain, vomiting, others Genitourinary: denies: burning, dysuria, flank pain, frequency, hematuria, incontinence, penile discharge, penile sore, pain, testicle pain, testicle swelling, urgency, others Neurological: denies: dizziness, fainting, headache, left sided numbness, left sided weakness, numbness, paresthesia, pre-existing deficit, right sided numbness, right sided weakness, seizure, speech problems, tingling, tremors, we akness, others Musculoskeletal: denies: back pain, gout, joint pain, joint swelling, muscle pain, muscle stiffness, neck pain, others Integumetry: denies: bruises, change in color, change in hair/nails, dryness, laceration, lesions, lumps, rash, wounds, others Allergic/Immunocompromised: denies: Difficulty Healing, Frequent Infections, Hives, Itching, others Hematologic/Lymphatic: denies: anemia, blood clots, easy bleeding, easy bruising, swollen glands, others Endocrine: denies: excessive hunger, excessive sweating, excessive thirst, excessive urination, flushing, intolerance to cold, intolerance to heat, unexplained weight gain, unexplained weight loss, others Psychiatric: denies: anxiety, bipolar disorder, depression, hopeless, panic disorder, schizophrenia, sleepless, suicidal, others All Other Systems: Reviewed and Negative Physical Exam General Appearance: No Apparent Distress, Normal HEENT: Normal ENT Inspection, Pharynx Normal, TMs Normal Neck: Full Range of Motion, Non-Tender, Normal, Normal Inspection Respiratory: Chest Non-Tender, Lungs Clear, No Accessory Muscle Use, No Respiratory Distress, Normal Breath Sounds Cardiovascular: No Edema, No JVD, No Murmur, No Gallop, Normal Peripheral Pulses, Regular Rate/Rhythm Breast Exam: Deferred Gastrointestinal: No Organomegaly, Non Tender, No Pulsatile Mass, Normal Bowel Sounds, Soft Genitalia: Deferred Pelvic: Deferred Rectal: Deferred Extremities: No calf tenderness, Normal capillary refill, Normal inspection, Normal range of motion, Non-tender, No pedal edema Musculoskeletal : Apperance: Normal Neurologic: Alert, hearing impaired itinerant teacher II-XII nml as Tested, No Motor Deficits, Normal Affect, Normal Mood, No Sensory Deficits Cerebellar Function: Normal Reflexes: Normal Skin: Dry, Normal Color, Warm Lymphatic: No Adenopathy Was a procedure done? Was a procedure done?: No Differential Dx Considerations may include: ACS, CVA, viral syndrome, electrolyte abnormality, cardiac arrhythmia, alcohol withdrawal X-Ray, Labs, Meds, VS Vital Signs Date Time Temp Pulse Resp B/P (MAP) Pulse Ox O2 Delivery O2 Flow Rate FiO2 05/25/25 08:36 76 11 95 Room Air* 0 21 05/25/25 08:36 98.8 76 11 116/68 (84) 95 98.8 05/25/25 07:18 98.6 74 16 122/85 97 98.6 05/25/25 07:12 76 Lab Test 05/25/25 09:40 05/25/25 08:56 05/25/25 07:50 Range/Units Troponin I High Sensitivity < 3 L < 3 L </=54 ng/L Urine Color Light-yellow Yellow Urine Clarity Clear Clear Urine pH 5.5 5.0-9.0 Urine Specific [place] 1.013 1.001-1.035 Urine Protein Negative Negative Urine Ketones Negative Negative Urine Blood Negative Negative /uL Urine Nitrite Negative Negative Urine Bilirubin Negative Negative Urine Urobilinogen Normal Negative mg/dL Urine Leukocyte Esterase Negative Negative /uL Urine RBC None seen 0 - 3 /hpf Urine Microscopic WBC < 1 0-3 /HPF Urine Squamous Epithelial Cells None seen <5 /hpf Urine Bacteria None seen None Seen /hpf Urine Glucose Normal Normal mg/dL White Blood Count 2.4 L 4.4-10.8 10^3/uL Red Blood Count 3.32 L 4.5-5.90 10^6/uL Hemoglobin 11.4 L 13.5-17.5 g/dL Hematocrit 34.3 L 41.0-53.0 % Mean Corpuscular Volume 103.2 H 80.0-100.0 fL Mean Corpuscular Hemoglobin 34.4 H 28.0-32.0 pg Mean Corpuscular Hemoglobin Concent 33.3 32.0-36.0 g/dL Red Cell Distribution Width 18.1 H 11.8-14.3 % Platelet Count 180 140-450 10^3/uL Mean Platelet Volume 7.8 6.9-10.8 fL Neutrophils (%) (Auto) 67.5 37.0-80.0 % Lymphocytes (%) (Auto) 20.5 10.0-50.0 % Monocytes (%) (Auto) 9.4 0.0-12.0 % Eosinophils (%) (Auto) 1.8 0.0-7.0 % Basophils (%) (Auto) 0.8 0.0-2.0 % Neutrophils # (Auto) 1.6 1.6-8.6 10 ^3/uL Lymphocytes # (Auto) 0.5 0.4-5.4 10 ^3/uL Monocytes # (Auto) 0.2 0-1.3 10 ^3/uL Eosinophils # (Auto) 0 0-0.8 10 ^3/uL Basophils # (Auto) 0 0-0.2 10 ^3/uL Nucleated Red Blood Cells 0.0 % Sodium Level 139 136-145 mmol/L Potassium Level 4.5 3.5-5.1 mmol/L Chloride Level 109 H 98-107 mmol/L Carbon Dioxide Level 24 20-31 mmol/L Anion Gap 6 5-15 Blood Urea Nitrogen < 5 L 9-23 mg/dL Creatinine 0.64 L 0.700-1.30 mg/dL Glomerular Filtration Rate Calc 110 >90 mL/min BUN/Creatinine Ratio 7.8 L 10.0-20.0 Serum Glucose 94 74-106 mg/dL Calcium Level 7.9 L 8.7-10.4 mg/dL [place] [id number] Ph: [phone] DIAGNOSTIC IMAGING Diagnostic Imaging Report : [id number] Signed PATIENT: JENSEN BACK ACCT: [id number] UNIT: [id number] : 1970 LOC: ER ROOM / BED: / AGE / SEX: 55 / M ADM STATUS: REG ER SERVICE [id number] ORDERING PHYSICIAN: VIRGINIA FULLER MD PROCEDURE(s): CXRP - CHEST PORTABLE REASON: weakness ORDER NUMBER(s): [id number], ACCESSION NUMBER(s): [id number] EXAM: XY CHEST PORTABLE Indication: weakness Technique: Single frontal view of the chest was obtained Comparison: CT CT ANGIO CHEST CONTRAST on DOS: 09/16/24, XY CHEST PORTABLE on DOS: 09/16/24, CT CHEST LUNG CANCER SCREEN BASELINE / ANNUAL on DOS: 09/09/24, CR CHEST 2 VIEW on DOS: 07/22/24, XY CHEST XRAY 1 VIEW on DOS: 08/24/23 FINDINGS: Lines and Tubes: None Lungs: No focal consolidation. Pleura: No effusion. No pneumothorax. Cardiomediastinal contours: Unremarkable Bones: No acute osseous abnormality. IMPRESSION: No acute cardiopulmonary disease. ATED BY: HALEY KRAMER MD DICTATED DATE/TIME: 05/25/25808 SIGNED BY: HALEY KRAMER MD SIGNED DATE/TIME: 05/25/25808 CC: Images Reviewed?: Images reviewed and evaluated by me Time of 1ST Reevaluation: 08:31 Reevaluation 1ST: Unchanged Patient Education/Counseling: Diagnosis, Treatment Family Education/Counseling: No Family Present SEPSIS Sepsis Screen Physician Orders Chest Portable (05/25/25 07:38) Troponin-I Hs (05/25/25 10:38) Head Without Contrast (05/25/25 10:36) Vital Signs Date Time Temp Pulse Resp B/P (MAP) Pulse Ox O2 Delivery O2 Flow Rate FiO2 05/25/25 08:36 76 11 95 Room Air* 0 21 05/25/25 08:36 98.8 76 11 116/68 (84) 95 98.8 05/25/25 07:18 98.6 74 16 122/85 97 98.6 05/25/25 07:12 76 Laboratory Tests Test 05/25/25 07:50 White Blood Count 2.4 10^3/uL (4.4-10.8) L Departure 1 Departure Time of Disposition: 12:09 (Patient presented with syncope today and should be admitted. Data: 1. I ordered and reviewed the result of at least 3 labs including a CBC, BMP, and troponin. 2. I independently interpreted the following tests: EKG which shows a sinus tachycardia and a chest x-ray which shows benign chest and a CT head which shows benign brain.Risk:This patient has a high risk of morbidity due to further diagnostic testing or treatment and may suffer from an acute cardiac, neurologic, or infectious disorder. Rationale: Patient should be admitted to the hospital for further management.) Impression: Primary Impression: Syncope and collapse Additional Impression: Generalized weakness Disposition: 09 ADMITTED INPATIENT Admit to: Tele Condition: Guarded Critical Care Note Critical Care Time?: No Stability Stability form required: No Heart Score Heart Score: Heart Score Response (Comments) Value History N/A 0 EKG N/A 0 Age N/A 0 Risk Factors N/A 0 Troponin N/A 0 Total 0 I personally scribed for VIRGINIA FULLER MD ([email or web address]) on 05/25/25 at 08:04. Electronically submitted by Jony Max ([email or web address]). I personally scribed for VIRGINIA FULLER MD ([email or web address]) on 05/25/25 at 08:35. Electronically submitted by Jony Max ([email or web address]). VIRGINIA FULLER MD May 25, 2025 08:04
[2025-05-25 08:07] LABS: Hematocrit 34.3 % (41.0-53.0); Hemoglobin 11.4 g/dL (13.5-17.5); Mean Corpuscular Hemoglobin 34.4 pg (28.0-32.0); Mean Corpuscular Volume 103.2 fL (80.0-100.0); Nucleated Red Blood Cells % 0.0 %
--- NOTE | 2025-05-25 08:12 | DVH ---
EXAM: XY CHEST PORTABLE Indication: weakness Technique: Single frontal view of the chest was obtained Comparison: CT CT ANGIO CHEST CONTRAST on DOS: 09/16/24, XY CHEST PORTABLE on DOS: 09/16/24, CT CHEST L AUDRA CANCER SCREEN BASELINE / ANNUAL on DOS: 09/09/24, CR CHEST 2 VIEW on DOS: 07/22/24, XY CHEST XRAY 1 VIEW on DOS: 08/24/23 FINDINGS: Lines and Tubes: None Lungs: No focal consolidation. Pleura: No effusion. No pneumothorax. Cardiomediastinal contours: Unremarkable Bones: No acute osseous abnormality. IMPRESSION: No acute cardiopulmonary disease.
[2025-05-25 08:36] VITALS: PULSE 76; RESP 11; O2SAT 95
[2025-05-25 08:36] LABS: Potassium 4.5 mmol/L (3.5-5.1); Sodium 139 mmol/L (136-145)
[2025-05-25 08:37] LABS: Anion Gap 6 (5-15); Carbon Dioxide 24 mmol/L (20-31)
[2025-05-25 08:38] LABS: Calcium 7.9 mg/dL (8.7-10.4); Chloride 109 mmol/L (98-107)
[2025-05-25 08:42] LABS: Glucose 94 mg/dL (74-106)
[2025-05-25 08:46] LABS: BUN/Creatinine Ratio 7.8 (10.0-20.0); Blood Urea Nitrogen < 5 mg/dL (9-23)
[2025-05-25 10:19] LABS: Urine Protein, UAD Negative (Negative)
--- NOTE | 2025-05-25 11:48 | DVH ---
CT HEAD WITHOUT CONTRAST Indication: syncope EXAM DATE: 05/25/2025 10:59 AM COMPARISON: CT HEAD WITHOUT CONTRAST on DOS: 09/17/24 TECHNIQUE: CT of the head without intravenous contrast. RADIATION DOSE: CTDIvol: 57.8 mGy, DLP: 1139 mGy*cm FINDINGS: There is no intracranial hemorrhage. There is no extra-axial fluid, mass, mass effect or midline shif t. The ventricles are midline and normal in size. Basilar cisterns are patent. There are mild periven tricular and subcortical white matter chronic microvascular ischemic changes. Mild global cerebral v olume loss. The paranasal sinuses and mastoids are well-pneumatized. Imaged portion of the orbits are unremarkabl e. IMPRESSION: No intracranial hemorrhage or mass effect.
[2025-05-25] MEDS ORDERED: NITROGLYCERIN 0.4 MG SL TAB SL PRN (15:30)
[2025-05-25] MEDS: FOLIC ACID 1 MG in D5W 5% 50 ML INJ ONE (15:30)
[2025-05-25] MEDS: SODIUM CHLORIDE 0.9% 1,000 ML IV ONE ×2 (15:30→16:23)
[2025-05-25] MEDS ORDERED: ONDANSETRON HCL 4 MG/2 ML VIAL IV PRN (15:30)
[2025-05-25] MEDS ORDERED: MORPHINE SULFATE INJ 2 MG/ml SYRG IV PRN (15:30)
[2025-05-25] MEDS ORDERED: DOCUSATE SOD 100 MG CAP PO PRN (15:30)
--- NOTE | 2025-05-25 16:07 | DVHHP2 ---
History of Present Illness Reason for Visit: Generalized weakness History of Present Illness Gregorio Moreno is a 55-year-old male with past medial history of anxiety, depression, schizophrenia, GERD, neuropathy, cirrhosis, and ETOH dependance, who came to the hospital for generalized weakness. Patient states he has had multip le syncopal episodes recently, mostly related to ETOH abuse. He states he also came to the hospital for his back pain and neuropathy. GI: GERD Psych: Anxiety, Depression, Schizophrenia Musculoskeletal: Chronic low back pain, Other (neuropathy) Smoke: <1 pack per day ALCOHOL: heavy (6-8 tall beer cans plus hard liquor some days. ) Review of Systems Constitutional: Yes: Weakness, Malaise; No: Fever, Chills, Sweats, Other Eyes: No: Pain, Vision change, Conjunctivae inflammation, Eyelid inflammation, Other, Redness ENT: No: Ear pain, Ear discharge, Nose pain, Nose discharge, Nose congestion, Mouth pain, Mouth swelling, Throat pain, Throat swelling, Other Respiratory: No: Cough, Dry, Shortness of breath, SOB with excertion, Wheezing, Hemoptysis, Pleuritic Pain, Sputum, Wheezing, Other Cardiovascular: No: Chest Pain, Palpitations, Orthopnea, Paroxysmal Noc. Dyspnea, Edema, Lt Headedness, Other Gastrointestinal: No: Nausea, Vomiting, Abdominal Pain, Diarrhea, Constipation, Melena, Hematochezia, Other Genitourinary: No Dysuria, No Frequency, No Incontinence, No Hematuria, No Retention, No Other Musculoskeletal: No: other, neck pain, shoulder pain, arm pain, back pain, hand pain, leg pain, foot pain Skin: No: Rash, Lesions, Jaundice, Bruising, Other Neurological: Weakness, Incoordination, Confusion, Other (hallucinations); No: Numbness, Change in speech, Seizures Allergies: Coded Allergies: NO KNOWN ALLERGIES (Unverified , 09/17/24) Exam Vital Signs Vital Signs Date Time Temp Pulse Resp B/P (MAP) Pulse Ox O2 Delivery O2 Flow Rate FiO2 05/25/25 12:00 75 18 138/86 (103) 94 05/25/25 08:36 Room Air* 0 21 05/25/25 08:36 98.8 98.8 General Appearance: Alert, Oriented X3, Cooperative, No acute distress HEENT: Atraumatic, PERRLA, Mucous membr. moist/pink Respiratory: Clear to auscultation, Normal air movement Cardiovascular: Normal S1, Normal S2, Other (ST) Abdominal: Normal bowel sounds, Soft, No tenderness Extremities: No clubbing, No cyanosis Skin: No rashes, No breakdown, No significant lesion Neuro: Normal gait, Normal speech, Strength at 5/5 X4 ext, Other (tremors, visual and auditory hallucinations) Psych/Mental Status: Mental status NL, Mood NL Labs/Xrays Labs Test 05/25/25 11:50 05/25/25 08:56 05/25/25 07:50 Range/Units Troponin I High Sensitivity < 3 L </=54 ng/L Urine Color Light-yellow Yellow Urine Clarity Clear Clear Urine pH 5.5 5.0-9.0 Urine Specific [place] 1.013 1.001-1.035 Urine Protein Negative Negative Urine Ketones Negative Negative Urine Blood Negative Negative /uL Urine Nitrite Negative Negative Urine Bilirubin Negative Negative Urine Urobilinogen Normal Negative mg/dL Urine Leukocyte Esterase Negative Negative /uL Urine RBC None seen 0 - 3 /hpf Urine Microscopic WBC < 1 0-3 /HPF Urine Squamous Epithelial Cells None seen <5 /hpf Urine Bacteria None seen None Seen /hpf Urine Glucose Normal Normal mg/dL White Blood Count 2.4 L 4.4-10.8 10^3/uL Red Blood Count 3.32 L 4.5-5.90 10^6/uL Hemoglobin 11.4 L 13.5-17.5 g/dL Hematocrit 34.3 L 41.0-53.0 % Mean Corpuscular Volume 103.2 H 80.0-100.0 fL Mean Corpuscular Hemoglobin 34.4 H 28.0-32.0 pg Mean Corpuscular Hemoglobin Concent 33.3 32.0-36.0 g/dL Red Cell Distribution Width 18.1 H 11.8-14.3 % Platelet Count 180 140-450 10^3/uL Mean Platelet Volume 7.8 6.9-10.8 fL Neutrophils (%) (Auto) 67.5 37.0-80.0 % Lymphocytes (%) (Auto) 20.5 10.0-50.0 % Monocytes (%) (Auto) 9.4 0.0-12.0 % Eosinophils (%) (Auto) 1.8 0.0-7.0 % Basophils (%) (Auto) 0.8 0.0-2.0 % Neutrophils # (Auto) 1.6 1.6-8.6 10 ^3/uL Lymphocytes # (Auto) 0.5 0.4-5.4 10 ^3/uL Monocytes # (Auto) 0.2 0-1.3 10 ^3/uL Eosinophils # (Auto) 0 0-0.8 10 ^3/uL Basophils # (Auto) 0 0-0.2 10 ^3/uL Nucleated Red Blood Cells 0.0 % Sodium Level 139 136-145 mmol/L Potassium Level 4.5 3.5-5.1 mmol/L Chloride Level 109 H 98-107 mmol/L Carbon Dioxide Level 24 20-31 mmol/L Anion Gap 6 5-15 Blood Urea Nitrogen < 5 L 9-23 mg/dL Creatinine 0.64 L 0.700-1.30 mg/dL Glomerular Filtration Rate Calc 110 >90 mL/min BUN/Creatinine Ratio 7.8 L 10.0-20.0 Serum Glucose 94 74-106 mg/dL Calcium Level 7.9 L 8.7-10.4 mg/dL Plasma/Serum Blood Alcohol 116.5 H <10 mg/dL EXAM: XY CHEST PORTABLE FINDINGS: Lines and Tubes: None Lungs: No focal consolidation. Pleura: No effusion. No pneumothorax. Cardiomediastinal contours: Unremarkable Bones: No acute osseous abnormality. IMPRESSION: No acute cardiopulmonary disease. FINDINGS: There is no intracranial hemorrhage. There is no extra-axial fluid, mass, mass effect or midline shift. The ventricles are midline and normal in size. Basilar cisterns are patent. There are mild periventricular and subcortical white matter chronic microvascular ischemic changes. Mild global cerebral volume loss. The paranasal sinuses and mastoids are well-pneumatized. Imaged portion of the orbits are unremarkable. IMPRESSION: No intracranial hemorrhage or mass effect. SEPSIS Sepsis Screen Date sepsis recognized/suspect: May 25, 2025 Time Sepsis recognized/suspect: 0836 Recent Procedure: No On Antibiotic Therapy: No Respiratory Rate >20: No Heart Rate >90: No Temp<36 C (96.8 F) or >38.3 C: No SBP <90 or MAP <65 mmHG: No New Acute Mental Status Change: No Is the patient on CPAP, BIPAP,: No Physician Orders Chest Portable (05/25/25 07:38) Head Without Contrast (05/25/25 10:36) Admit (05/25/25 15:17) Code Status (05/25/25 15:17) 2 Gm Sodium Diet (05/25/25 Dinner) Hydrocodone-Acet 5/325mg Tab ([place] (05/25/25 15:30) Ondansetron Hcl (Zofran) (05/25/25 15:30) Docusate Sodium Capsule (Colace Capsule) (05/25/25 15:30) Fall Risk Precautions In Place QSHIFT (05/25/25 15:17) Complete Blood Count (05/26/25 04:00) Comprehensive Metabolic Panel (05/26/25 04:00) Condition: Serious (05/25/25 15:17) Acetaminophen Tablet (Tylenol Tablet) (05/25/25 15:30) Nitroglycerin Sublingual (Ntrostat Subli (05/25/25 15:30) Morphine Sulfate Injection (05/25/25 15:30) Stat Ekg For Chest Pain (05/25/25 15:17) Notify Md Of Changes From Base (05/25/25 15:17) [employer] Instructor For 24 Hours (05/25/25 15:17) Emergency Dysrhythmia Protocol (05/25/25 15:17) Rhythm Strips Once Every Shift (05/25/25 15:17) Oxygen By Nasal Cannula (05/25/25 15:17) Comprehensive Metabolic Panel (05/25/25 15:17) Vital Signs Date Time Temp Pulse Resp B/P (MAP) Pulse Ox O2 Delivery O2 Flow Rate FiO2 05/25/25 12:00 75 18 138/86 (103) 94 05/25/25 11:00 78 17 133/84 (100) 94 05/25/25 10:00 74 16 133/84 (100) 99 05/25/25 09:00 75 14 12/81 (58) 94 05/25/25 08:36 76 11 95 Room Air* 0 21 05/25/25 08:36 98.8 76 11 116/68 (84) 95 98.8 Laboratory Tests Test 05/25/25 07:50 White Blood Count 2.4 10^3/uL (4.4-10.8) L Assessment/Plan Assessment/Plan Assessment: Syncope and collapse, ETOH withdrawal, Anxiety, Depression, Schizophrenia, Plan: Admit to Tele, Consider Neurology consult, IV hydration, Tapering Librium does, Carotid ultrasound, CMP, PO supplements for ETOH withdrawal, PRN IV Ativan for ETOH withdrawal, Home medications reconciled, Plan discussed with: Patient My Orders Orders - ARLEN SANTOS Procedure Category Date Status Time Admit ADMIT 05/25/25 Transmitted 15:17 Code Status CODE 05/25/25 Transmitted 15:17 2 Gm Sodium Diet DIET 05/25/25 Transmitted Dinner Hydrocodone-Acet PHA 05/25/25 Transmitted 5/325mg Tab ([place] 15:30 Ondansetron Hcl PHA 05/25/25 Transmitted (Zofran) 15:30 Docusate Sodium PHA 05/25/25 Transmitted Capsule (Colace 15:[address] [facility] 05/25/[address] 15:17 Complete Blood Count LAB 05/26/25 Verified 04:00 Comprehensive LAB 05/26/25 Verified Metabolic Panel 04:00 Condition: Serious [facility] 05/25/25 Transmitted 15:17 Acetaminophen Tablet [facility] 05/25/25 Transmitted (Tylenol Tablet) 15:30 Nitroglycerin PHA 05/25/25 Transmitted Sublingual (Ntrostat 15:30 Morphine Sulfate PHA 05/25/25 Transmitted Injection 15:[address] Chest [facility] 05/25/25 Transmitted Pain 15:17 Notify Md Of Changes [facility] 05/25/25 Transmitted From Base 15:17 [employer] Instructor For [facility] 05/25/25 Transmitted 24 Hours 15:[address] [facility] 05/25/25 Transmitted Protocol 15:[address] [facility] 05/25/25 Transmitted Every Shift 15:17 Oxygen By Nasal RT 05/25/25 Transmitted Cannula 15:17 Comprehensive LAB 05/25/25 Transmitted Metabolic Panel 15:17 Date of Service: May 25, 2025 Billing Provider: ARLEN SANTOS Common Visit Codes: [id number] INP/OBS CARE (MOD) ARLEN SANTOS May 25, 2025 16:07
[2025-05-25] MEDS: MULTIPLE VITAMINS W/ MINERALS TAB PO ONE (16:23)
[2025-05-25] MEDS: THIAMINE HCL 100 MG TAB PO ONE (16:23)
[2025-05-25 17:00] VITALS: PULSE 75; RESP 18; O2SAT 97
[2025-05-25 17:05] VITALS: BP 130/93; PULSE 81; RESP 18; TEMP 97.7; O2SAT 97
--- NOTE | 2025-05-25 17:19 | DVH ---
US CAROTID DOPPLER CLINICAL INDICATION: syncope TECHNIQUE: Multiple grayscale, color Doppler and spectral Doppler ultrasound images were obtained thr oughout both carotid systems. COMPARISON: None FINDINGS: RIGHT: CCA PSV: 92 cm/s ECA PSV: 72 cm/s ICA PSV: 101 cm/s ICA EDV: 42 cm/s ICA/CCA Ratio: 1.1 Vertebral artery: Patent, antegrade flow. Grayscale images demonstrate no significant plaque or visible stenosis. Spectral analysis demonstrate s no hemodynamically significant CCA or ICA stenosis. LEFT: CCA PSV: 94 cm/s ECA PSV: 87 cm/s ICA PSV: 107 cm/s ICA EDV: 30 cm/s ICA/CCA Ratio: 1.1 Vertebral artery: Patent, antegrade flow. Grayscale images demonstrate no significant plaque or visible stenosis. Spectral analysis demonstrate s no hemodynamically significant CCA or ICA stenosis. IMPRESSION: 1. Normal carotid ultrasound without evidence of hemodynamically significant CCA or ICA stenosis.
[2025-05-25 17:32] VITALS: BP 130/93; PULSE 75; RESP 18; TEMP 97.7; O2SAT 97
[2025-05-25] MEDS: GABAPENTIN 400 MG CAP PO SCH (18:15)
[2025-05-25 18:24] LABS: Alanine Aminotransferase 22 U/L (7-40); Albumin 3.3 g/dL (3.2-4.8); Anion Gap 9 (5-15); BUN/Creatinine Ratio 10.3 (10.0-20.0); Carbon Dioxide 23 mmol/L (20-31); Glucose 92 mg/dL (74-106); Potassium 4.6 mmol/L (3.5-5.1); Sodium 141 mmol/L (136-145); Total Protein 5.9 g/dL (5.7-8.2)
[2025-05-25 18:26] LABS: Alkaline Phosphatase 140 U/L (46-116); Bilirubin, Total 0.3 mg/dL (0.2-1.0); Blood Urea Nitrogen 7 mg/dL (9-23); Calcium 7.8 mg/dL (8.7-10.4); Chloride 109 mmol/L (98-107)
[2025-05-25] MEDS: NICOTINE 14 MG/24HR TOPICAL PATCH TD ONE (18:30)
[2025-05-25 20:00] VITALS: PULSE 96
[2025-05-25 21:00] VITALS: BP 112/78; PULSE 84; RESP 18; TEMP 98.4; O2SAT 94
[2025-05-25] MEDS: QUETIAPINE 150 MG PO SCH (22:49)
[2025-05-26] VITALS (8 sets, daily range): BP systolic 103–122; BP diastolic 73–84; PULSE 78–107; RESP 17–18; TEMP 97.9–98.8; O2SAT 93–96
[2025-05-26] MEDS: HYDROcodone-ACET 5/325MG TAB PO PRN (00:26)
[2025-05-26 08:39] LABS: Hematocrit 35.5 % (41.0-53.0); Hemoglobin 12.0 g/dL (13.5-17.5); Mean Corpuscular Hemoglobin 35.2 pg (28.0-32.0); Mean Corpuscular Volume 104.0 fL (80.0-100.0); Nucleated Red Blood Cells % 0.0 %
[2025-05-26] MEDS: CITALOPRAM HYDROBR 20 MG TAB PO SCH (10:11)
[2025-05-26] MEDS: THIAMINE HCL 100 MG TAB PO SCH (10:12)
[2025-05-26] MEDS: PANTOPRAZOLE 40 MG TAB PO SCH (10:12)
[2025-05-26] MEDS: FOLIC ACID 1 MG TAB PO SCH (10:12)
[2025-05-26] MEDS: MULTIPLE VITAMINS W/ MINERALS TAB PO SCH (10:15)
[2025-05-26] MEDS: LORazepam 2MG/ML-1ML VIAL IV PRN (10:15)
[2025-05-26 11:17] LABS: Alanine Aminotransferase 18 U/L (7-40); Anion Gap 8 (5-15); BUN/Creatinine Ratio 13.8 (10.0-20.0); Carbon Dioxide 24 mmol/L (20-31); Chloride 104 mmol/L (98-107); Glucose 82 mg/dL (74-106); Potassium 4.0 mmol/L (3.5-5.1); Total Protein 5.9 g/dL (5.7-8.2)
[2025-05-26 11:29] LABS: Bilirubin, Total 0.9 mg/dL (0.2-1.0)
[2025-05-26 11:34] LABS: Albumin 3.2 g/dL (3.2-4.8); Alkaline Phosphatase 143 U/L (46-116); Blood Urea Nitrogen 8 mg/dL (9-23); Calcium 8.3 mg/dL (8.7-10.4); Sodium 136 mmol/L (136-145)
[2025-05-26] MEDS: FOLIC ACID 1 MG in D5W 5% 50 ML INJ SCH (13:22)
[2025-05-26] MEDS: NICOTINE 14 MG/24HR TOPICAL PATCH TD SCH (18:03)
[2025-05-27] VITALS (8 sets, daily range): BP systolic 101–118; BP diastolic 63–87; PULSE 61–100; RESP 17–21; TEMP 97.5–98.2; O2SAT 93–96
[2025-05-27] MEDS: BACLOFEN 10 MG TAB PO PRN (02:42)
--- NOTE | 2025-05-27 11:11 | DVHPN2 ---
Reviewed: Care Plan, H&P, Labs, Medications, Previous Orders, Radiology Changes from previous H/P or p: No Changes Eyes: No Pain, No Vision change, No Conjunctivae inflammation, No Eyelid inflammation, No Other, No Redness ENT: No Ear pain, No Ear discharge, No Nose pain, No Nose discharge, No Nose congestion, No Mouth pain, No Mouth swelling, No Throat pain, No Throat swelling, No Other Cardiovascular: No Chest Pain, No Palpitations, No Orthopnea, No Paroxysmal Noc. Dyspnea, No Edema, No Lt Headedness, No Other Respiratory: No Cough, No Dry, No Shortness of breath, No SOB with excertion, No Wheezing, No Hemoptysis, No Pleuritic Pain, No Sputum, No Other Gastrointestinal: No Nausea, No Vomiting, No Abdominal Pain, No Diarrhea, No Constipation, No Melena, No Hematochezia, No Other Genitourinary: No Dysuria, No Frequency, No Incontinence, No Hematuria, No Retention, No Other Musculoskeletal: No other, No neck pain, No shoulder pain, No arm pain, No back pain, No hand pain, No leg pain, No foot pain Skin: No Rash, No Lesions, No Jaundice, No Bruising, No Other Objective Vitals Vital Signs Date Time Temp Pulse Resp B/P (MAP) Pulse Ox O2 Delivery O2 Flow Rate FiO2 05/27/25 09:00 97.5 78 19 105/73 (84) 95 97.5 05/27/25 08:00 Room Air* 0 21 Intake/Output Intake and Output 05/27/25 07:00 Intake Total 1200 ml Output Total 650 ml Balance 550 ml Intake Oral 1200 ml Output Urine Total 650 ml # Voids 1 # Bowel Movements 1 Medications Current Medications Medications Dose Ordered Sig/Margie Route Start Time Stop Time Status Last Admin Dose Admin Acetaminophen/ Hydrocodone Bitart 1 tab Q4HP PRN PO 05/25/25 15:30 05/27/25 06:45 1 TAB Ondansetron HCl 4 mg Q4HP PRN IV 05/25/25 15:30 Docusate Sodium 100 mg BIDPRN PRN PO 05/25/25 15:30 Acetaminophen 650 mg Q6HP PRN PO 05/25/25 15:30 Nitroglycerin 0.4 mg Q5MINP PRN SL 05/25/25 15:30 Morphine Sulfate 2 mg Q30M PRN IV 05/25/25 15:30 Folic Acid 1 mg/ Dextrose 50.2 ml @ 200.8 mls/ hr DAILY INJ 05/26/25 10:00 05/27/25 10:05 200.8 MLS/HR Thiamine HCl 100 mg DAILY PO 05/26/25 10:00 05/27/25 10:02 100 MG Multivitamins/ Minerals 1 tab DAILY PO 05/26/25 10:00 05/27/25 10:00 1 TAB Chlordiazepoxide HCl 25 mg Q12HR PO 05/27/25 10:00 05/27/25 22:01 05/27/25 09:59 25 MG Chlordiazepoxide HCl 25 mg QAM PO 05/28/25 07:00 05/28/25 07:01 Lorazepam 1 mg Q2HP PRN IV 05/25/25 15:30 05/26/25 10:15 1 MG Pantoprazole Sodium 40 mg DAILY PO 05/26/25 10:00 05/27/25 10:00 40 MG Baclofen 20 mg QID PRN PO 05/25/25 18:00 05/27/25 02:42 20 MG Citalopram Hydrobromide 40 mg DAILY PO 05/26/25 10:00 05/27/25 09:59 40 MG Duloxetine HCl 60 mg QAM PO 05/26/25 07:00 05/27/25 06:01 60 MG Folic Acid 1 mg DAILY PO 05/26/25 10:00 05/27/25 10:01 1 MG Gabapentin 800 mg QID PO 05/25/25 18:00 05/27/25 06:01 800 MG Patient Own Medication 150 mg HS PO 05/25/25 22:00 Nicotine 1 patch DAILY@1800 TD 05/26/25 18:00 05/26/25 18:03 1 PATCH Laboratory Results Laboratory Tests 05/26/25 07:04 Urinalysis Test 05/25/25 08:56 Urine Color Light-yellow (Yellow) Urine Clarity Clear (Clear) Urine pH 5.5 (5.0-9.0) Urine Specific [place] 1.013 (1.001-1.035) Urine Protein Negative (Negative) Urine Ketones Negative (Negative) Urine Blood Negative /uL (Negative) Urine Nitrite Negative (Negative) Urine Bilirubin Negative (Negative) Urine Urobilinogen Normal mg/dL (Negative) Urine Leukocyte Esterase Negative /uL (Negative) Urine RBC None seen /hpf (0 - 3) Urine Microscopic WBC < 1 /HPF (0-3) Urine Squamous Epithelial Cells None seen /hpf (<5) Urine Bacteria None seen /hpf (None Seen) Urine Glucose Normal mg/dL (Normal) Labs and/or images reviewed: Labs reviewed by me, Image(s) reviewed by me Assessment/Plan Assessment/Plan Late entry Syncope and collapse, head negative, carotid ultrasound negative Acute alcoholic intoxication blood alcohol 116 ETOH withdrawal, Librium, thiamine folic acid multivitamin Anxiety, Depression, resume home medications Celexa Cymbalta Chronic pain syndrome baclofen, DC [place], start morphine injection Schizophrenia, resume home medications Chronic Current alcohol abuse: Counseling Pain left 5th finger: X-ray rule out fracture Severe malnutrition Time spent 70 minutes Advanced care planning time 20 minutes Patient is full code Plan discussed with: Patient Date of Service: May 26, 2025 Billing Provider: ANKUR VELASCO MD Common Visit Codes: [id number] CARE 30-74 MIN ANKUR VELASCO MD May 27, 2025 11:11
--- NOTE | 2025-05-27 11:12 | DVHPN2 ---
Reviewed: Care Plan, H&P, Labs, Medications, Previous Orders, Radiology Changes from previous H/P or p: No Changes Eyes: No Pain, No Vision change, No Conjunctivae inflammation, No Eyelid inflammation, No Other, No Redness ENT: No Ear pain, No Ear discharge, No Nose pain, No Nose discharge, No Nose congestion, No Mouth pain, No Mouth swelling, No Throat pain, No Throat swelling, No Other Cardiovascular: No Chest Pain, No Palpitations, No Orthopnea, No Paroxysmal Noc. Dyspnea, No Edema, No Lt Headedness, No Other Respiratory: No Cough, No Dry, No Shortness of breath, No SOB with excertion, No Wheezing, No Hemoptysis, No Pleuritic Pain, No Sputum, No Other Gastrointestinal: No Nausea, No Vomiting, No Abdominal Pain, No Diarrhea, No Constipation, No Melena, No Hematochezia, No Other Genitourinary: No Dysuria, No Frequency, No Incontinence, No Hematuria, No Retention, No Other Musculoskeletal: No other, No neck pain, No shoulder pain, No arm pain, No back pain, No hand pain, No leg pain, No foot pain Skin: No Rash, No Lesions, No Jaundice, No Bruising, No Other Objective Vitals Vital Signs Date Time Temp Pulse Resp B/P (MAP) Pulse Ox O2 Delivery O2 Flow Rate FiO2 05/27/25 09:00 97.5 78 19 105/73 (84) 95 97.5 05/27/25 08:00 Room Air* 0 21 Intake/Output Intake and Output 05/27/25 07:00 Intake Total 1200 ml Output Total 650 ml Balance 550 ml Intake Oral 1200 ml Output Urine Total 650 ml # Voids 1 # Bowel Movements 1 Medications Current Medications Medications Dose Ordered Sig/Margie Route Start Time Stop Time Status Last Admin Dose Admin Acetaminophen/ Hydrocodone Bitart 1 tab Q4HP PRN PO 05/25/25 15:30 05/27/25 06:45 1 TAB Ondansetron HCl 4 mg Q4HP PRN IV 05/25/25 15:30 Docusate Sodium 100 mg BIDPRN PRN PO 05/25/25 15:30 Acetaminophen 650 mg Q6HP PRN PO 05/25/25 15:30 Nitroglycerin 0.4 mg Q5MINP PRN SL 05/25/25 15:30 Morphine Sulfate 2 mg Q30M PRN IV 05/25/25 15:30 Folic Acid 1 mg/ Dextrose 50.2 ml @ 200.8 mls/ hr DAILY INJ 05/26/25 10:00 05/27/25 10:05 200.8 MLS/HR Thiamine HCl 100 mg DAILY PO 05/26/25 10:00 05/27/25 10:02 100 MG Multivitamins/ Minerals 1 tab DAILY PO 05/26/25 10:00 05/27/25 10:00 1 TAB Chlordiazepoxide HCl 25 mg Q12HR PO 05/27/25 10:00 05/27/25 22:01 05/27/25 09:59 25 MG Chlordiazepoxide HCl 25 mg QAM PO 05/28/25 07:00 05/28/25 07:01 Lorazepam 1 mg Q2HP PRN IV 05/25/25 15:30 05/26/25 10:15 1 MG Pantoprazole Sodium 40 mg DAILY PO 05/26/25 10:00 05/27/25 10:00 40 MG Baclofen 20 mg QID PRN PO 05/25/25 18:00 05/27/25 02:42 20 MG Citalopram Hydrobromide 40 mg DAILY PO 05/26/25 10:00 05/27/25 09:59 40 MG Duloxetine HCl 60 mg QAM PO 05/26/25 07:00 05/27/25 06:01 60 MG Folic Acid 1 mg DAILY PO 05/26/25 10:00 05/27/25 10:01 1 MG Gabapentin 800 mg QID PO 05/25/25 18:00 05/27/25 06:01 800 MG Patient Own Medication 150 mg HS PO 05/25/25 22:00 Nicotine 1 patch DAILY@1800 TD 05/26/25 18:00 05/26/25 18:03 1 PATCH Laboratory Results Laboratory Tests 05/26/25 07:04 Urinalysis Test 05/25/25 08:56 Urine Color Light-yellow (Yellow) Urine Clarity Clear (Clear) Urine pH 5.5 (5.0-9.0) Urine Specific [place] 1.013 (1.001-1.035) Urine Protein Negative (Negative) Urine Ketones Negative (Negative) Urine Blood Negative /uL (Negative) Urine Nitrite Negative (Negative) Urine Bilirubin Negative (Negative) Urine Urobilinogen Normal mg/dL (Negative) Urine Leukocyte Esterase Negative /uL (Negative) Urine RBC None seen /hpf (0 - 3) Urine Microscopic WBC < 1 /HPF (0-3) Urine Squamous Epithelial Cells None seen /hpf (<5) Urine Bacteria None seen /hpf (None Seen) Urine Glucose Normal mg/dL (Normal) Labs and/or images reviewed: Labs reviewed by me, Image(s) reviewed by me Assessment/Plan Assessment/Plan Syncope and collapse, head negative, carotid ultrasound negative Acute alcoholic intoxication blood alcohol 116 ETOH withdrawal, Librium, thiamine folic acid multivitamin Anxiety, Depression, resume home medications Celexa Cymbalta Chronic pain syndrome baclofen, DC [place], start morphine injection Schizophrenia, resume home medications Chronic Current alcohol abuse: Counseling Pain left 5th finger: X-ray rule out fracture Acute Dehydration: LR 150 per hr Severe malnutrition Time spent 60 minutes Advanced care planning time 20 minutes Patient is full code Plan discussed with: Patient Date of Service: May 27, 2025 Billing Provider: ANKUR VELASCO MD Common Visit Codes: [id number] INP/OBS CARE(HIGH) Secondary Visit Codes: [id number] CARE PLAN 30 MINUTES ANKUR VELASCO MD May 27, 2025 11:12
[2025-05-27 12:03] LABS: Hepatitis B Surface Antigen Negative (Negative); Hepatitis C Antibody Negative (Negative)
[2025-05-27] MEDS: LACTATED RINGER'S 1,000 ML IV SCH (12:45)
--- NOTE | 2025-05-27 13:22 | DVH ---
EXAM: XY L 5TH FINGER XRAY CLINICAL INDICATION: fell, Rule out fracture TECHNIQUE: XY L 5TH FINGER XRAY Comparison: None FINDINGS/IMPRESSION: There is a nondisplaced fracture of the base of the 5th proximal phalanx.
[2025-05-27] MEDS: FOLIC ACID 1 MG, MULTIPLE VITAMIN 10 ML, MAGNESIUM SULF SDV 50% 8 MEQ, THIAMINE INJ 100... INJ SCH (17:29)
[2025-05-27] MEDS: QUETIAPINE 150 MG PO SCH (22:00)
[2025-05-28] VITALS (7 sets, daily range): BP systolic 94–136; BP diastolic 64–92; PULSE 71–109; RESP 17–19; TEMP 97–98.2; O2SAT 89–95
--- NOTE | 2025-05-28 11:02 | DVHPN2 ---
Reviewed: Care Plan, H&P, Labs, Medications, Previous Orders, Radiology Changes from previous H/P or p: No Changes Eyes: No Pain, No Vision change, No Conjunctivae inflammation, No Eyelid inflammation, No Other, No Redness ENT: No Ear pain, No Ear discharge, No Nose pain, No Nose discharge, No Nose congestion, No Mouth pain, No Mouth swelling, No Throat pain, No Throat swelling, No Other Cardiovascular: No Chest Pain, No Palpitations, No Orthopnea, No Paroxysmal Noc. Dyspnea, No Edema, No Lt Headedness, No Other Respiratory: No Cough, No Dry, No Shortness of breath, No SOB with excertion, No Wheezing, No Hemoptysis, No Pleuritic Pain, No Sputum, No Other Gastrointestinal: No Nausea, No Vomiting, No Abdominal Pain, No Diarrhea, No Constipation, No Melena, No Hematochezia, No Other Genitourinary: No Dysuria, No Frequency, No Incontinence, No Hematuria, No Retention, No Other Musculoskeletal: No other, No neck pain, No shoulder pain, No arm pain, No back pain, No hand pain, No leg pain, No foot pain Skin: No Rash, No Lesions, No Jaundice, No Bruising, No Other Objective Vitals Vital Signs Date Time Temp Pulse Resp B/P (MAP) Pulse Ox O2 Delivery O2 Flow Rate FiO2 05/28/25 09:00 97.0 85 17 117/82 (94) 90 97.0 05/28/25 08:00 Room Air* 0 21 Intake/Output Intake and Output 05/28/25 07:00 Intake Total 3195 ml Output Total 1000 ml Balance 2195 ml Intake Oral 3195 ml Output Urine Total 1000 ml # Voids 2 # Bowel Movements 3 Medications Current Medications Medications Dose Ordered Sig/Mar[place]i Route Start Time Stop Time Status Last Admin Dose Admin Acetaminophen/ Hydrocodone Bitart 1 tab Q4HP PRN PO 05/25/25 15:30 05/27/25 21:00 1 TAB Ondansetron HCl 4 mg Q4HP PRN IV 05/25/25 15:30 Docusate Sodium 100 mg BIDPRN PRN PO 05/25/25 15:30 Acetaminophen 650 mg Q6HP PRN PO 05/25/25 15:30 Nitroglycerin 0.4 mg Q5MINP PRN SL 05/25/25 15:30 Morphine Sulfate 2 mg Q30M PRN IV 05/25/25 15:30 Multivitamins/ Minerals 1 tab DAILY PO 05/26/25 10:00 05/28/25 08:39 1 TAB Lorazepam 1 mg Q2HP PRN IV 05/25/25 15:30 05/26/25 10:15 1 MG Pantoprazole Sodium 40 mg DAILY PO 05/26/25 10:00 05/28/25 08:40 40 MG Baclofen 20 mg QID PRN PO 05/25/25 18:00 05/27/25 11:45 20 MG Citalopram Hydrobromide 40 mg DAILY PO 05/26/25 10:00 05/28/25 08:39 40 MG Duloxetine HCl 60 mg QAM PO 05/26/25 07:00 05/28/25 05:35 60 MG Gabapentin 800 mg QID PO 05/25/25 18:00 05/28/25 08:39 800 MG Nicotine 1 patch DAILY@1800 TD 05/26/25 18:00 05/27/25 17:27 1 PATCH Folic Acid 1 mg/ Multivitamins 10 ml/Magnesium Sulfate 8 meq/ Thiamine HCl 100 mg/Dextrose 1,013.2 ml @ 125.001 mls/hr DAILY@1800 INJ 05/27/25 18:00 05/27/25 17:29 125.001 MLS/HR Lactated Ringer's 1,000 ml @ 150 mls/hr Q6H40M IV 05/27/25 12:45 05/28/25 02:05 150 MLS/HR Patient Own Medication 150 mg HS PO 05/27/25 22:00 05/27/25 22:00 150 MG Laboratory Results Laboratory Tests 05/26/25 07:04 Urinalysis Test 05/25/25 08:56 Urine Color Light-yellow (Yellow) Urine Clarity Clear (Clear) Urine pH 5.5 (5.0-9.0) Urine Specific [place] 1.013 (1.001-1.035) Urine Protein Negative (Negative) Urine Ketones Negative (Negative) Urine Blood Negative /uL (Negative) Urine Nitrite Negative (Negative) Urine Bilirubin Negative (Negative) Urine Urobilinogen Normal mg/dL (Negative) Urine Leukocyte Esterase Negative /uL (Negative) Urine RBC None seen /hpf (0 - 3) Urine Microscopic WBC < 1 /HPF (0-3) Urine Squamous Epithelial Cells None seen /hpf (<5) Urine Bacteria None seen /hpf (None Seen) Urine Glucose Normal mg/dL (Normal) Labs and/or images reviewed: Labs reviewed by me, Image(s) reviewed by me Assessment/Plan Assessment/Plan Syncope and collapse, CT head negative, carotid ultrasound negative Acute alcoholic intoxication blood alcohol 116 ETOH withdrawal, Librium, thiamine folic acid multivitamin Anxiety, Depression, resume home medications Celexa Cymbalta Chronic pain syndrome baclofen, DC [place], start morphine injection Schizophrenia, resume home medications Chronic Current alcohol abuse: Counseling Pain left 5th finger: X-ray rule out fracture Acute Dehydration: LR 150 per hr Severe malnutrition Time spent 50 minutes Advanced care planning time 20 minutes Patient is full code Plan discussed with: Patient My Orders Orders - ANKUR VELASCO MD Procedure Category Date Status Time L 5th Finger Xray XY 05/27/25 Resulted 11:12 Folic Acid... PHA 05/27/25 In Process 18:00 Lactated Ringer's PHA 05/27/25 In Process 12:45 Date of Service: May 28, 2025 Billing Provider: ANKUR VELASCO MD Common Visit Codes: [id number] INP/OBS CARE(HIGH) ANKUR VELASCO MD May 28, 2025 11:02
[2025-05-28] MEDS: MAGNESIUM OXIDE 400 MG TAB PO ONE (17:02)
[2025-05-28] MEDS: MULTIPLE VITAMIN TAB PO ONE (17:03)
[2025-05-28] MEDS: THIAMINE HCL 100 MG TAB PO ONE (17:03)
[2025-05-28] MEDS: FOLIC ACID 1 MG TAB PO ONE (17:13)
[2025-05-28] MEDS: ACETAMINOPHEN 325 MG TAB PO PRN (18:27)
[2025-05-28] MEDS: QUETIAPINE 150 MG PO SCH (21:41)
[2025-05-29] VITALS (7 sets, daily range): BP systolic 85–116; BP diastolic 57–82; PULSE 72–91; RESP 16–20; TEMP 97.2–98.2; O2SAT 92–98
[2025-05-29 06:44] LABS: Hematocrit 31.8 % (41.0-53.0); Hemoglobin 10.8 g/dL (13.5-17.5); Mean Corpuscular Hemoglobin 35.6 pg (28.0-32.0); Mean Corpuscular Volume 105.1 fL (80.0-100.0); Nucleated Red Blood Cells % 0.0 %
[2025-05-29 06:56] LABS: Alanine Aminotransferase 11 U/L (7-40); Alkaline Phosphatase 105 U/L (46-116); Anion Gap 7 (5-15); BUN/Creatinine Ratio 20.6 (10.0-20.0); Blood Urea Nitrogen 13 mg/dL (9-23); Carbon Dioxide 27 mmol/L (20-31); Chloride 106 mmol/L (98-107); Glucose 97 mg/dL (74-106); Magnesium 2.4 mg/dL (1.6-2.6); Potassium 3.6 mmol/L (3.5-5.1); Sodium 140 mmol/L (136-145)
[2025-05-29 06:57] LABS: Bilirubin, Total 0.5 mg/dL (0.2-1.0)
[2025-05-29 07:02] LABS: Albumin 3.0 g/dL (3.2-4.8); Calcium 7.9 mg/dL (8.7-10.4); Total Protein 5.4 g/dL (5.7-8.2)
[2025-05-29] MEDS: FOLIC ACID 1 MG TAB PO SCH (11:46)
[2025-05-29] MEDS: THIAMINE HCL 100 MG TAB PO SCH (11:46)
[2025-05-29] MEDS: MAGNESIUM OXIDE 400 MG TAB PO SCH (11:47)
[2025-05-29] MEDS: MULTIPLE VITAMIN TAB PO SCH (11:47)
--- NOTE | 2025-05-29 12:47 | DVHPN2 ---
Reviewed: Care Plan, H&P, Labs, Medications, Previous Orders, Radiology Changes from previous H/P or p: No Changes Eyes: No Pain, No Vision change, No Conjunctivae inflammation, No Eyelid inflammation, No Other, No Redness ENT: No Ear pain, No Ear discharge, No Nose pain, No Nose discharge, No Nose congestion, No Mouth pain, No Mouth swelling, No Throat pain, No Throat swelling, No Other Cardiovascular: No Chest Pain, No Palpitations, No Orthopnea, No Paroxysmal Noc. Dyspnea, No Edema, No Lt Headedness, No Other Respiratory: No Cough, No Dry, No Shortness of breath, No SOB with excertion, No Wheezing, No Hemoptysis, No Pleuritic Pain, No Sputum, No Other Gastrointestinal: No Nausea, No Vomiting, No Abdominal Pain, No Diarrhea, No Constipation, No Melena, No Hematochezia, No Other Genitourinary: No Dysuria, No Frequency, No Incontinence, No Hematuria, No Retention, No Other Musculoskeletal: No other, No neck pain, No shoulder pain, No arm pain, No back pain, No hand pain, No leg pain, No foot pain Skin: No Rash, No Lesions, No Jaundice, No Bruising, No Other Objective Vitals Vital Signs Date Time Temp Pulse Resp B/P (MAP) Pulse Ox O2 Delivery O2 Flow Rate FiO2 05/29/25 09:00 97.2 91 16 116/82 (93) 94 97.2 05/28/25 20:00 Room Air* 0 21 Intake/Output Intake and Output 05/29/25 07:00 Intake Total 2400 ml Output Total 475 ml Balance 1925 ml Intake Oral 2400 ml Output Urine Total 475 ml # Bowel Movements 6 Medications Current Medications Medications Dose Ordered Sig/Margie Route Start Time Stop Time Status Last Admin Dose Admin Acetaminophen/ Hydrocodone Bitart 1 tab Q4HP PRN PO 05/25/25 15:30 05/29/25 11:46 1 TAB Ondansetron HCl 4 mg Q4HP PRN IV 05/25/25 15:30 Docusate Sodium 100 mg BIDPRN PRN PO 05/25/25 15:30 Acetaminophen 650 mg Q6HP PRN PO 05/25/25 15:30 05/28/25 18:27 650 MG Nitroglycerin 0.4 mg Q5MINP PRN SL 05/25/25 15:30 Morphine Sulfate 2 mg Q30M PRN IV 05/25/25 15:30 Multivitamins/ Minerals 1 tab DAILY PO 05/26/25 10:00 05/28/25 17:02 1 TAB Lorazepam 1 mg Q2HP PRN IV 05/25/25 15:30 05/26/25 10:15 1 MG Pantoprazole Sodium 40 mg DAILY PO 05/26/25 10:00 05/29/25 11:48 40 MG Baclofen 20 mg QID PRN PO 05/25/25 18:00 05/27/25 11:45 20 MG Citalopram Hydrobromide 40 mg DAILY PO 05/26/25 10:00 05/29/25 11:48 40 MG Duloxetine HCl 60 mg QAM PO 05/26/25 07:00 05/29/25 06:21 60 MG Gabapentin 800 mg QID PO 05/25/25 18:00 05/29/25 12:35 800 MG Nicotine 1 patch DAILY@1800 TD 05/26/25 18:00 05/28/25 17:07 1 PATCH Lactated Ringer's 1,000 ml @ 150 mls/hr Q6H40M IV 05/27/25 12:45 05/29/25 06:25 150 MLS/HR Folic Acid 1 mg DAILY PO 05/29/25 10:00 05/29/25 11:46 1 MG Multivitamins 1 tab DAILY PO 05/29/25 10:00 05/29/25 11:47 1 TAB Magnesium Oxide 400 mg DAILY PO 05/29/25 10:00 05/29/25 11:47 400 MG Thiamine HCl 100 mg DAILY PO 05/29/25 10:00 05/29/25 11:46 100 MG Patient Own Medication 300 mg HS PO 05/28/25 22:00 05/28/25 21:41 300 MG Laboratory Results Laboratory Tests 05/29/25 05:06 Chemistry Test 05/29/25 05:06 Albumin 3.0 g/dL (3.2-4.8) L Calcium Level 7.9 mg/dL (8.7-10.4) L Magnesium Level 2.4 mg/dL (1.6-2.6) Total Protein 5.4 g/dL (5.7-8.2) L LFT Test 05/29/25 05:06 Alanine Aminotransferase (ALT) 11 U/L (7-40) Alkaline Phosphatase 105 U/L (46-116) Aspartate Amino Transferase (AST) 14 U/L (13-40) Total Bilirubin 0.5 mg/dL (0.2-1.0) Urinalysis Test 05/25/25 08:56 Urine Color Light-yellow (Yellow) Urine Clarity Clear (Clear) Urine pH 5.5 (5.0-9.0) Urine Specific [place] 1.013 (1.001-1.035) Urine Protein Negative (Negative) Urine Ketones Negative (Negative) Urine Blood Negative /uL (Negative) Urine Nitrite Negative (Negative) Urine Bilirubin Negative (Negative) Urine Urobilinogen Normal mg/dL (Negative) Urine Leukocyte Esterase Negative /uL (Negative) Urine RBC None seen /hpf (0 - 3) Urine Microscopic WBC < 1 /HPF (0-3) Urine Squamous Epithelial Cells None seen /hpf (<5) Urine Bacteria None seen /hpf (None Seen) Urine Glucose Normal mg/dL (Normal) Labs and/or images reviewed: Labs reviewed by me, Image(s) reviewed by me Assessment/Plan Assessment/Plan Syncope and collapse, CT head negative, carotid ultrasound negative Acute alcoholic intoxication blood alcohol 116 ETOH withdrawal, Librium, thiamine folic acid multivitamin Anxiety, Depression, resume home medications Celexa Cymbalta Chronic pain syndrome baclofen, DC [place], start morphine injection Schizophrenia, resume home medications Chronic Current alcohol abuse: Counseling Pain left 5th finger: X-ray rule out fracture Acute Dehydration: LR 150 per hr Severe malnutrition Time spent 50 minutes Advanced care planning time 20 minutes Patient is full code Plan discussed with: Patient My Orders Orders - ANKUR VELASCO MD Procedure Category Date Status Time Folic Acid Tablet PHA 05/29/25 In Process 10:00 Multiple Vitamin PHA 05/29/25 In Process Tablet (Mvi Tab) 10:00 Magnesium Oxide PHA 05/29/25 In Process Tablet (Mag-Ox Tablet) 10:00 Thiamine Tab PHA 05/29/25 In Process 10:00 Date of Service: May 29, 2025 Billing Provider: ANKUR VELASCO MD Common Visit Codes: [id number] INP/OBS CARE(HIGH) ANKUR VELASCO MD May 29, 2025 12:47
--- NOTE | 2025-05-29 14:57 | DVH ---
Bilateral lower extremity venous duplex Clinical History: rule out dvt Comparison: US BILAT LOWER DVT on DOS: 09/16/24, US BILAT LOWER DVT on DOS: 01/11/23, US BILAT LOWER DV T on DOS: 12/30/22 Technique: Duplex Doppler evaluation of the deep venous systems of both lower extremities from the common femora l veins to the popliteal veins including color Doppler and spectral/pulsed waveform analysis was perf ormed. Findings: RIGHT SIDE: The common femoral vein demonstrates appropriate compressibility and waveform variability. There is compressibility/patency of the great saphenous vein at the proximal thigh. The femoral vein demonstrates appropriate compressibility and waveform variability. The deep femoral vein demonstrates appropriate compressibility and waveform variability. The popliteal vein demonstrates appropriate compressibility and waveform variability. There is normal compressibility at the tibioperoneal trunk. LEFT SIDE: The common femoral vein demonstrates appropriate compressibility and waveform variability. There is compressibility/patency of the great saphenous vein at the proximal thigh. The femoral vein demonstrates appropriate compressibility and waveform variability. The deep femoral vein demonstrates appropriate compressibility and waveform variability. The popliteal vein demonstrates appropriate compressibility and waveform variability. There is normal compressibility at the tibioperoneal trunk. Impression: 1. No right or left femoropopliteal venous thrombosis.
[2025-05-30] VITALS (8 sets, daily range): BP systolic 112–120; BP diastolic 81–84; PULSE 70–89; RESP 18–19; TEMP 98.3–98.9; O2SAT 90–96
--- NOTE | 2025-05-30 13:41 | DVHPN2 ---
Reviewed: Care Plan, H&P, Labs, Medications, Previous Orders, Radiology Changes from previous H/P or p: No Changes Eyes: No Pain, No Vision change, No Conjunctivae inflammation, No Eyelid inflammation, No Other, No Redness ENT: No Ear pain, No Ear discharge, No Nose pain, No Nose discharge, No Nose congestion, No Mouth pain, No Mouth swelling, No Throat pain, No Throat swelling, No Other Cardiovascular: No Chest Pain, No Palpitations, No Orthopnea, No Paroxysmal Noc. Dyspnea, No Edema, No Lt Headedness, No Other Respiratory: No Cough, No Dry, No Shortness of breath, No SOB with excertion, No Wheezing, No Hemoptysis, No Pleuritic Pain, No Sputum, No Other Gastrointestinal: No Nausea, No Vomiting, No Abdominal Pain, No Diarrhea, No Constipation, No Melena, No Hematochezia, No Other Genitourinary: No Dysuria, No Frequency, No Incontinence, No Hematuria, No Retention, No Other Musculoskeletal: No other, No neck pain, No shoulder pain, No arm pain, No back pain, No hand pain, No leg pain, No foot pain Skin: No Rash, No Lesions, No Jaundice, No Bruising, No Other Objective Vitals Vital Signs Date Time Temp Pulse Resp B/P (MAP) Pulse Ox O2 Delivery O2 Flow Rate FiO2 05/30/25 05:00 98.9 78 18 114/84 (94) 90 98.9 05/29/25 20:00 Room Air* 0 21 Intake/Output Intake and Output 05/30/25 07:00 Intake Total 4590 ml Output Total 1275 ml Balance 3315 ml Intake Oral 2740 ml IV Total 1850 ml Output Urine Total 1275 ml # Voids 1 # Bowel Movements 1 Medications Current Medications Medications Dose Ordered Sig/Margie Route Start Time Stop Time Status Last Admin Dose Admin Acetaminophen/ Hydrocodone Bitart 1 tab Q4HP PRN PO 05/25/25 15:30 05/30/25 12:39 1 TAB Ondansetron HCl 4 mg Q4HP PRN IV 05/25/25 15:30 Docusate Sodium 100 mg BIDPRN PRN PO 05/25/25 15:30 Acetaminophen 650 mg Q6HP PRN PO 05/25/25 15:30 05/28/25 18:27 650 MG Nitroglycerin 0.4 mg Q5MINP PRN SL 05/25/25 15:30 Morphine Sulfate 2 mg Q30M PRN IV 05/25/25 15:30 Multivitamins/ Minerals 1 tab DAILY PO 05/26/25 10:00 05/30/25 09:30 1 TAB Lorazepam 1 mg Q2HP PRN IV 05/25/25 15:30 05/26/25 10:15 1 MG Pantoprazole Sodium 40 mg DAILY PO 05/26/25 10:00 05/30/25 09:30 40 MG Baclofen 20 mg QID PRN PO 05/25/25 18:00 05/27/25 11:45 20 MG Citalopram Hydrobromide 40 mg DAILY PO 05/26/25 10:00 05/30/25 09:30 40 MG Duloxetine HCl 60 mg QAM PO 05/26/25 07:00 05/30/25 06:21 60 MG Gabapentin 800 mg QID PO 05/25/25 18:00 05/30/25 12:00 800 MG Nicotine 1 patch DAILY@1800 TD 05/26/25 18:00 05/29/25 18:05 1 PATCH Lactated Ringer's 1,000 ml @ 150 mls/hr Q6H40M IV 05/27/25 12:45 05/30/25 06:15 150 MLS/HR Folic Acid 1 mg DAILY PO 05/29/25 10:00 05/30/25 09:30 1 MG Multivitamins 1 tab DAILY PO 05/29/25 10:00 05/30/25 09:28 1 TAB Magnesium Oxide 400 mg DAILY PO 05/29/25 10:00 05/30/25 09:30 400 MG Thiamine HCl 100 mg DAILY PO 05/29/25 10:00 05/30/25 09:30 100 MG Patient Own Medication 300 mg HS PO 05/28/25 22:00 05/29/25 21:26 300 MG Laboratory Results Laboratory Tests 05/29/25 05:06 Urinalysis Test 05/25/25 08:56 Urine Color Light-yellow (Yellow) Urine Clarity Clear (Clear) Urine pH 5.5 (5.0-9.0) Urine Specific [place] 1.013 (1.001-1.035) Urine Protein Negative (Negative) Urine Ketones Negative (Negative) Urine Blood Negative /uL (Negative) Urine Nitrite Negative (Negative) Urine Bilirubin Negative (Negative) Urine Urobilinogen Normal mg/dL (Negative) Urine Leukocyte Esterase Negative /uL (Negative) Urine RBC None seen /hpf (0 - 3) Urine Microscopic WBC < 1 /HPF (0-3) Urine Squamous Epithelial Cells None seen /hpf (<5) Urine Bacteria None seen /hpf (None Seen) Urine Glucose Normal mg/dL (Normal) Labs and/or images reviewed: Labs reviewed by me, Image(s) reviewed by me Assessment/Plan Assessment/Plan Syncope and collapse, CT head negative, carotid ultrasound negative Acute alcoholic intoxication blood alcohol 116 ETOH withdrawal, Librium, thiamine folic acid multivitamin Anxiety, Depression, resume home medications Celexa Cymbalta Chronic pain syndrome baclofen, DC [place], start morphine injection Schizophrenia, resume home medications Chronic Current alcohol abuse: Counseling Pain left 5th finger: X-ray rule out fracture Acute Dehydration: LR 150 per hr Severe malnutrition Time spent 50 minutes Advanced care planning time 20 minutes Patient is full code Physical therapy ordered Plan discussed with: Patient My Orders Orders - ANKUR VELASCO MD Procedure Category Date Status Time Pt Request For Service PT 05/30/25 Verified 13:40 Date of Service: May 30, 2025 Billing Provider: ANKUR VELASCO MD Common Visit Codes: [id number] INP/OBS CARE(HIGH) ANKUR VELASCO MD May 30, 2025 13:41
[2025-05-30] MEDS: MORPHINE SULFATE INJ 2 MG/ml SYRG IV SCH (14:26)
[2025-05-30] MEDS: SPIRONOLACTONE 25 MG TAB PO SCH (18:05)
[2025-05-31] VITALS (9 sets, daily range): BP systolic 105–149; BP diastolic 70–87; PULSE 53–103; RESP 16–20; TEMP 98–98.6; O2SAT 91–96
--- NOTE | 2025-05-31 13:05 | DVHPN2 ---
Reviewed: Care Plan, H&P, Labs, Medications, Previous Orders, Radiology Changes from previous H/P or p: No Changes Eyes: No Pain, No Vision change, No Conjunctivae inflammation, No Eyelid inflammation, No Other, No Redness ENT: No Ear pain, No Ear discharge, No Nose pain, No Nose discharge, No Nose congestion, No Mouth pain, No Mouth swelling, No Throat pain, No Throat swelling, No Other Cardiovascular: No Chest Pain, No Palpitations, No Orthopnea, No Paroxysmal Noc. Dyspnea, No Edema, No Lt Headedness, No Other Respiratory: No Cough, No Dry, No Shortness of breath, No SOB with excertion, No Wheezing, No Hemoptysis, No Pleuritic Pain, No Sputum, No Other Gastrointestinal: No Nausea, No Vomiting, No Abdominal Pain, No Diarrhea, No Constipation, No Melena, No Hematochezia, No Other Genitourinary: No Dysuria, No Frequency, No Incontinence, No Hematuria, No Retention, No Other Musculoskeletal: No other, No neck pain, No shoulder pain, No arm pain, No back pain, No hand pain, No leg pain, No foot pain Skin: No Rash, No Lesions, No Jaundice, No Bruising, No Other Objective Vitals Vital Signs Date Time Temp Pulse Resp B/P (MAP) Pulse Ox O2 Delivery O2 Flow Rate FiO2 05/31/25 10:27 96 14 128/86 05/31/25 09:00 98.2 94 98.2 05/31/25 07:50 Room Air* 0 21 Intake/Output Intake and Output 05/31/25 07:00 Intake Total 1640 ml Output Total 350 ml Balance 1290 ml Intake Oral 1040 ml IV Total 600 ml Output Urine Total 350 ml # Voids 4 Medications Current Medications Medications Dose Ordered Sig/Margie Route Start Time Stop Time Status Last Admin Dose Admin Ondansetron HCl 4 mg Q4HP PRN IV 05/25/25 15:30 Docusate Sodium 100 mg BIDPRN PRN PO 05/25/25 15:30 Acetaminophen 650 mg Q6HP PRN PO 05/25/25 15:30 05/28/25 18:27 650 MG Nitroglycerin 0.4 mg Q5MINP PRN SL 05/25/25 15:30 Morphine Sulfate 2 mg Q30M PRN IV 05/25/25 15:30 Lorazepam 1 mg Q2HP PRN IV 05/25/25 15:30 05/26/25 10:15 1 MG Pantoprazole Sodium 40 mg DAILY PO 05/26/25 10:00 05/31/25 09:58 40 MG Baclofen 20 mg QID PRN PO 05/25/25 18:00 05/27/25 11:45 20 MG Citalopram Hydrobromide 40 mg DAILY PO 05/26/25 10:00 05/31/25 09:54 40 MG Duloxetine HCl 60 mg QAM PO 05/26/25 07:00 05/31/25 06:06 60 MG Gabapentin 800 mg QID PO 05/25/25 18:00 05/31/25 12:23 800 MG Nicotine 1 patch DAILY@1800 TD 05/26/25 18:00 05/30/25 18:06 1 PATCH Lactated Ringer's 1,000 ml @ 150 mls/hr Q6H40M IV 05/27/25 12:45 05/31/25 10:02 150 MLS/HR Folic Acid 1 mg DAILY PO 05/29/25 10:00 05/31/25 09:58 1 MG Multivitamins 1 tab DAILY PO 05/29/25 10:00 05/31/25 09:58 1 TAB Magnesium Oxide 400 mg DAILY PO 05/29/25 10:00 05/31/25 09:58 400 MG Thiamine HCl 100 mg DAILY PO 05/29/25 10:00 05/31/25 09:58 100 MG Patient Own Medication 300 mg HS PO 05/28/25 22:00 Hold 05/29/25 21:26 300 MG Morphine Sulfate 2 mg Q4H IV 05/30/25 14:00 05/31/25 09:57 2 MG Quetiapine Fumarate 100 mg HS PO 05/30/25 22:00 05/30/25 21:34 100 MG Quetiapine Fumarate 50 mg HS PO 05/30/25 22:00 05/30/25 21:35 50 MG Spironolactone 25 mg BIDD PO 05/30/25 18:00 05/31/25 05:58 25 MG Laboratory Results Laboratory Tests 05/29/25 05:06 Urinalysis Test 05/25/25 08:56 Urine Color Light-yellow (Yellow) Urine Clarity Clear (Clear) Urine pH 5.5 (5.0-9.0) Urine Specific [place] 1.013 (1.001-1.035) Urine Protein Negative (Negative) Urine Ketones Negative (Negative) Urine Blood Negative /uL (Negative) Urine Nitrite Negative (Negative) Urine Bilirubin Negative (Negative) Urine Urobilinogen Normal mg/dL (Negative) Urine Leukocyte Esterase Negative /uL (Negative) Urine RBC None seen /hpf (0 - 3) Urine Microscopic WBC < 1 /HPF (0-3) Urine Squamous Epithelial Cells None seen /hpf (<5) Urine Bacteria None seen /hpf (None Seen) Urine Glucose Normal mg/dL (Normal) Labs and/or images reviewed: Labs reviewed by me, Image(s) reviewed by me Assessment/Plan Assessment/Plan Syncope and collapse, CT head negative, carotid ultrasound negative Acute alcoholic intoxication blood alcohol 116 ETOH withdrawal, Librium, thiamine folic acid multivitamin Anxiety, Depression, resume home medications Celexa Cymbalta Chronic pain syndrome baclofen, DC [place], start morphine injection Schizophrenia, resume home medications Chronic Current alcohol abuse: Counseling Pain left 5th finger: X-ray rule out fracture Acute Dehydration: LR 150 per hr Severe malnutrition Time spent 50 minutes Advanced care planning time 20 minutes Patient is full code Physical therapy ordered Continue Current management Plan discussed with: Patient My Orders Orders - ANKUR VELASCO MD Procedure Category Date Status Time Pt Request For Service PT 05/30/25 Logged 13:40 Morphine Sulfate PHA 05/30/25 In Process Injection 14:00 Quetiapine Fumarate PHA 05/30/25 In Process Tablet (Seroquel Tab 22:00 Quetiapine Fumarate PHA 05/30/25 In Process Tablet (Seroquel Tab 22:00 Spironolactone PHA 05/30/25 In Process (Aldactone) 18:00 Date of Service: May 31, 2025 Billing Provider: ANKUR VELASCO MD Common Visit Codes: [id number] CARE 30-74 MIN ANKUR VELASCO MD May 31, 2025 13:05
[2025-06-01 01:00] VITALS: BP 109/71; PULSE 94; RESP 18; TEMP 97.9; O2SAT 90
[2025-06-01 05:00] VITALS: BP 103/77; PULSE 89; RESP 19; TEMP 97.8; O2SAT 95
[2025-06-01 08:00] VITALS: PULSE 80; PULSE 93; RESP 18; O2SAT 96
[2025-06-01 09:00] VITALS: BP 114/91; PULSE 80; RESP 18; TEMP 98.7; O2SAT 96
--- NOTE | 2025-06-01 11:45 | DVHPN2 ---
Reviewed: Care Plan, H&P, Labs, Medications, Previous Orders, Radiology Changes from previous H/P or p: No Changes Eyes: No Pain, No Vision change, No Conjunctivae inflammation, No Eyelid inflammation, No Other, No Redness ENT: No Ear pain, No Ear discharge, No Nose pain, No Nose discharge, No Nose congestion, No Mouth pain, No Mouth swelling, No Throat pain, No Throat swelling, No Other Cardiovascular: No Chest Pain, No Palpitations, No Orthopnea, No Paroxysmal Noc. Dyspnea, No Edema, No Lt Headedness, No Other Respiratory: No Cough, No Dry, No Shortness of breath, No SOB with excertion, No Wheezing, No Hemoptysis, No Pleuritic Pain, No Sputum, No Other Gastrointestinal: No Nausea, No Vomiting, No Abdominal Pain, No Diarrhea, No Constipation, No Melena, No Hematochezia, No Other Genitourinary: No Dysuria, No Frequency, No Incontinence, No Hematuria, No Retention, No Other Musculoskeletal: No other, No neck pain, No shoulder pain, No arm pain, No back pain, No hand pain, No leg pain, No foot pain Skin: No Rash, No Lesions, No Jaundice, No Bruising, No Other Objective Vitals Vital Signs Date Time Temp Pulse Resp B/P (MAP) Pulse Ox O2 Delivery O2 Flow Rate FiO2 06/01/25 10:30 91 16 123/91 06/01/25 05:00 97.8 95 97.8 05/31/25 20:00 Room Air* 0 21 Intake/Output Intake and Output 06/01/25 07:00 Intake Total 2056 ml Output Total 2530 ml Balance -474 ml Intake Oral 2056 ml Other 0 ml Output Urine Total 2530 ml Medications Current Medications Medications Dose Ordered Sig/Margie Route Start Time Stop Time Status Last Admin Dose Admin Ondansetron HCl 4 mg Q4HP PRN IV 05/25/25 15:30 Docusate Sodium 100 mg BIDPRN PRN PO 05/25/25 15:30 Acetaminophen 650 mg Q6HP PRN PO 05/25/25 15:30 05/28/25 18:27 650 MG Nitroglycerin 0.4 mg Q5MINP PRN SL 05/25/25 15:30 Morphine Sulfate 2 mg Q30M PRN IV 05/25/25 15:30 Lorazepam 1 mg Q2HP PRN IV 05/25/25 15:30 05/26/25 10:15 1 MG Pantoprazole Sodium 40 mg DAILY PO 05/26/25 10:00 06/01/25 10:28 40 MG Baclofen 20 mg QID PRN PO 05/25/25 18:00 05/27/25 11:45 20 MG Citalopram Hydrobromide 40 mg DAILY PO 05/26/25 10:00 06/01/25 10:28 40 MG Duloxetine HCl 60 mg QAM PO 05/26/25 07:00 06/01/25 06:06 60 MG Gabapentin 800 mg QID PO 05/25/25 18:00 06/01/25 05:38 800 MG Nicotine 1 patch DAILY@1800 TD 05/26/25 18:00 05/31/25 17:59 1 PATCH Lactated Ringer's 1,000 ml @ 150 mls/hr Q6H40M IV 05/27/25 12:45 06/01/25 06:07 150 MLS/HR Folic Acid 1 mg DAILY PO 05/29/25 10:00 06/01/25 10:29 1 MG Multivitamins 1 tab DAILY PO 05/29/25 10:00 06/01/25 10:28 1 TAB Magnesium Oxide 400 mg DAILY PO 05/29/25 10:00 06/01/25 10:28 400 MG Thiamine HCl 100 mg DAILY PO 05/29/25 10:00 06/01/25 10:29 100 MG Patient Own Medication 300 mg HS PO 05/28/25 22:00 Hold 05/29/25 21:26 300 MG Morphine Sulfate 2 mg Q4H IV 05/30/25 14:00 06/01/25 10:00 2 MG Quetiapine Fumarate 100 mg HS PO 05/30/25 22:00 05/31/25 21:58 100 MG Quetiapine Fumarate 50 mg HS PO 05/30/25 22:00 05/31/25 21:58 50 MG Spironolactone 25 mg BIDD PO 05/30/25 18:00 06/01/25 05:38 25 MG Laboratory Results Laboratory Tests 05/29/25 05:06 Urinalysis Test 05/25/25 08:56 Urine Color Light-yellow (Yellow) Urine Clarity Clear (Clear) Urine pH 5.5 (5.0-9.0) Urine Specific [place] 1.013 (1.001-1.035) Urine Protein Negative (Negative) Urine Ketones Negative (Negative) Urine Blood Negative /uL (Negative) Urine Nitrite Negative (Negative) Urine Bilirubin Negative (Negative) Urine Urobilinogen Normal mg/dL (Negative) Urine Leukocyte Esterase Negative /uL (Negative) Urine RBC None seen /hpf (0 - 3) Urine Microscopic WBC < 1 /HPF (0-3) Urine Squamous Epithelial Cells None seen /hpf (<5) Urine Bacteria None seen /hpf (None Seen) Urine Glucose Normal mg/dL (Normal) Labs and/or images reviewed: Labs reviewed by me, Image(s) reviewed by me Assessment/Plan Assessment/Plan Syncope and collapse, CT head negative, carotid ultrasound negative Acute alcoholic intoxication blood alcohol 116, down to less than 3 ETOH withdrawal, Librium, thiamine folic acid multivitamin Anxiety, Depression, resume home medications Celexa Cymbalta Chronic pain syndrome baclofen, morphine IV p.r.n. Schizophrenia, resume home medications Chronic Current alcohol abuse: Counseling Pain left 5th finger , x-ray shows nondisplaced fracture base of 5th proximal phalanx conservative management Acute Dehydration: LR 150 per hr DVT ruled out Severe malnutrition Time spent 50 minutes Advanced care planning time 20 minutes Patient is full code Physical therapy ordered Continue Current management Plan discussed with: Patient Date of Service: Jun 01, 2025 Billing Provider: ANKUR VELASCO MD Common Visit Codes: [id number] INP/OBS CARE(HIGH) ANKUR VELASCO MD Jun 01, 2025 11:44
--- NOTE | 2025-06-01 11:52 | DVHDS2 ---
Discharge Summary Date of Admission May 25, 2025 at 15:17 Date of Discharge: Jun 01, 2025 Admitting Diagnosis Generalized weakness and acute alcoholic intoxication Wounds: None Labs/Diagnostic Data: Laboratory Results Test 05/29/25 05:06 05/25/25 11:50 05/25/25 08:56 05/25/25 07:50 White Blood Count 7.1 10^3/uL (4.4-10.8) Red Blood Count 3.03 10^6/uL (4.5-5.90) Hemoglobin 10.8 g/dL (13.5-17.5) Hematocrit 31.8 % (41.0-53.0) Mean Corpuscular Volume 105.1 fL (80.0-100.0) Mean Corpuscular Hemoglobin 35.6 pg (28.0-32.0) Mean Corpuscular Hemoglobin Concent 33.9 g/dL (32.0-36.0) Red Cell Distribution Width 17.5 % (11.8-14.3) Platelet Count 109 10^3/uL (140-450) Mean Platelet Volume 9.7 fL (6.9-10.8) Neutrophils (%) (Auto) 82.5 % (37.0-80.0) Lymphocytes (%) (Auto) 9.8 % (10.0-50.0) Monocytes (%) (Auto) 6.1 % (0.0-12.0) Eosinophils (%) (Auto) 1.5 % (0.0-7.0) Basophils (%) (Auto) 0.1 % (0.0-2.0) Neutrophils # (Auto) 5.9 10 ^3/uL (1.6-8.6) Lymphocytes # (Auto) 0.7 10 ^3/uL (0.4-5.4) Monocytes # (Auto) 0.4 10 ^3/uL (0-1.3) Eosinophils # (Auto) 0.1 10 ^3/uL (0-0.8) Basophils # (Auto) 0 10 ^3/uL (0-0.2) Nucleated Red Blood Cells 0.0 % Sodium Level 140 mmol/L (136-145) Potassium Level 3.6 mmol/L (3.5-5.1) Chloride Level 106 mmol/L (98-107) Carbon Dioxide Level 27 mmol/L (20-31) Anion Gap 7 (5-15) Blood Urea Nitrogen 13 mg/dL (9-23) Creatinine 0.63 mg/dL (0.700-1.30) Glomerular Filtration Rate Calc 111 mL/min (>90) BUN/Creatinine Ratio 20.6 (10.0-20.0) Serum Glucose 97 mg/dL (74-106) Calcium Level 7.9 mg/dL (8.7-10.4) Magnesium Level 2.4 mg/dL (1.6-2.6) Total Bilirubin 0.5 mg/dL (0.2-1.0) Aspartate Amino Transferase (AST) 14 U/L (13-40) Alanine Aminotransferase (ALT) 11 U/L (7-40) Alkaline Phosphatase 105 U/L (46-116) Ammonia 23 umol/L (11-32) Total Protein 5.4 g/dL (5.7-8.2) Albumin 3.0 g/dL (3.2-4.8) Plasma/Serum Blood Alcohol < 3.0 mg/dL (<10) Troponin I High Sensitivity < 3 ng/L (</=54) Urine Color Light-yellow (Yellow) Urine Clarity Clear (Clear) Urine pH 5.5 (5.0-9.0) Urine Specific [place] 1.013 (1.001-1.035) Urine Protein Negative (Negative) Urine Ketones Negative (Negative) Urine Blood Negative /uL (Negative) Urine Nitrite Negative (Negative) Urine Bilirubin Negative (Negative) Urine Urobilinogen Normal mg/dL (Negative) Urine Leukocyte Esterase Negative /uL (Negative) Urine RBC None seen /hpf (0 - 3) Urine Microscopic WBC < 1 /HPF (0-3) Urine Squamous Epithelial Cells None seen /hpf (<5) Urine Bacteria None seen /hpf (None Seen) Urine Glucose Normal mg/dL (Normal) Hepatitis B Surface Antigen Negative (Negative) Hepatitis C Antibody Negative (Negative) Other Laboratory Tests 05/29/25 05:06 Brief Hx & Hospital Course: 55 year-old male with history alcohol abuse, frequent admissions, depression, schizophrenia anxiety burden by family for altered mental status and confusion and recurrent falls at home. CT head was negative patient had minor nondisplaced fracture of the left 5th proximal phalanx. Blood alcohol was high 116 treated with IV fluids banana bag time Less than three given Librium multivitamin thiamine folic acid started back on home medications Celexa and Cymbalta and baclofen. Patient has had a Physical therapy who recommended [facility] DVT was ruled out. [facility]. The plan is acceptable to the patient and his dad Darryn. Consults/Reason for consult None Operations or Procedures None Condition at Discharge: Fair Final Diagnosis/Problems List Syncope and collapse, CT head negative, carotid ultrasound negative Acute alcoholic intoxication blood alcohol 116, down to less than 3 ETOH withdrawal, Librium, thiamine folic acid multivitamin Anxiety, Depression, resume home medications Celexa Cymbalta Chronic pain syndrome baclofen, morphine IV p.r.n. Schizophrenia, resume home medications Chronic Current alcohol abuse: Counseling Pain left 5th finger , x-ray shows nondisplaced fracture base of 5th proximal phalanx conservative management Acute Dehydration: LR 150 per hr DVT ruled out Severe malnutrition Discharge Disposition: Long-Term Facility Discharge Instruct/Medications Diet: Cardiac 2g Na,low cholest Activity: Light activity Follow Up/Referral: Follow up with the longterm Medications: see list Scheduled Baclofen (Baclofen), 1 TAB PO QID, (Reported) Chlordiazepoxide Hcl (Ni-1) (I (Librium), 10 MG PO BID Citalopram Hydrobromide (Celexa), 40 MG PO DAILY, (Reported) Duloxetine HCl (Duloxetine HCl), 60 MG PO QAM, (Reported) Ergocalciferol (Vitamin D 32129 Unit), 50,000 UNIT PO WEEKLY, (Reported) Ferrous Sulfate (Ferrous Sulfate), 2 TAB PO DAILY Folic Acid (Folic Acid), 1 MG PO DAILY, (Reported) Furosemide (Lasix), 40 MG PO QAM Gabapentin (Gabapentin), 800 MG PO QID, (Reported) Oxycodone W/ Acetaminophen (Apap/Oxycodone), 1 TAB PO QID, (Reported) Pantoprazole Sodium Sesquihydr (Protonix), 40 MG PO DAILY, (Reported) Potassium Chloride (Klor-Con 10), 10 MEQ PO DAILY Quetiapine Fumerate (Seroquel Xr), 150 MG PO HS, (Reported) Spironolactone (Aldactone), 50 MG PO BIDD Thiamine Mononitrate (Vitamin B-1), 100 MG PO DAILY, (Reported) Trazodone HCl (Trazodone Hydrocloride), 100 MG PO HS, (Reported) Scheduled PRN Morphine Sulfate (Morphine Sulfate), 1 TAB PO BID PRN 39 (Time taken for discharge summary 39 minutes) Discharge Statement: "Patient was advised to return to the ER or call 911 if any headaches, dizziness, shortness of breath, chest pain, abdominal pain, bleeding, fevers, or worsening of medical condition. Patient was counseled about treatment plan, medications, possible side effects, patientverbalized understanding. All questions were answered to the best of my ability. This discharge took greater then 30 minutes in planning, reviewing documentation, counseling the patient, and discussing with other team members." ASSESSMENT ASSESSMENT Hospital Course Marginally improved Assessment Syncope and collapse, CT head negative, carotid ultrasound negative Acute alcoholic intoxication blood alcohol 116, down to less than 3 ETOH withdrawal, Librium, thiamine folic acid multivitamin Anxiety, Depression, resume home medications Celexa Cymbalta Chronic pain syndrome baclofen, morphine IV p.r.n. Schizophrenia, resume home medications Chronic Current alcohol abuse: Counseling Pain left 5th finger , x-ray shows nondisplaced fracture base of 5th proximal phalanx conservative management Acute Dehydration: LR 150 per hr DVT ruled out Severe malnutrition Date of Service: Jun 01, 2025 Billing Provider: ANKUR VELASCO MD Common Visit Codes: 74526-DFG/OBS DISCH DAY >30min ANKUR VELASCO MD Jun 01, 2025 11:52
[2025-06-01 13:00] VITALS: BP 132/82; PULSE 91; RESP 18; TEMP 98.6; O2SAT 95
--- NOTE | 2025-06-01 15:07 | DVH ---
LEFT UPPER EXTREMITY VENOUS DUPLEX REASON FOR EXAMINATION: rule out DVT COMPARISON: US BILAT LOWER DVT on DOS: 05/29/25, US CAROTID DUPLX W COLOR DOP on DOS: 05/25/25, US BI LAT LOWER DVT on DOS: 09/16/24, US BILAT LOWER DVT on DOS: 01/11/23, US BILAT LOWER DVT on DOS: 12/30/22 TECHNIQUE: Using real-time freeze-frame technique with a high-frequency transducer, multiple longitu dinal and transverse sections were obtained. Simultaneous color flow and spectral Doppler imaging wa s performed. FINDINGS: Deep veins Internal jugular vein: Compressible. No thrombus identified. Expected Doppler flow. Subclavian vein: Expected Doppler flow. Axillary vein: Compressible. No thrombus identified. Expected Doppler flow. Brachial vein: Compressible. No thrombus identified. Expected Doppler flow. Radial vein: Compressible. No thrombus identified. Expected Doppler flow. Ulnar vein: Compressible. No thrombus identified. Expected Doppler flow. Superficial veins Cephalic vein: Compressible. No thrombus identified. Expected Doppler flow. Basilic vein: Compressible. No thrombus identified. Expected Doppler flow. There is subcutaneous edema in the forearm. IMPRESSION: No evidence of deep venous thrombosis.
[2025-06-01 15:46] VITALS: BP 132/82; PULSE 91; RESP 18; TEMP 98.6; O2SAT 95
== END 2025-06-01 17:27 | DRG 640 ==
LOC: EDBD 07:12 → ER 07:18 → OVERFLOW 15:17 → TELE-WESTW 16:52
PROVIDERS: ADMIT Family Medicine; ATTEND Family Medicine
DX: E86.0 Dehydration (principal); E43 Unspecified severe protein-calorie malnutrition; F10.139 Alcohol abuse with withdrawal, unspecified; K74.60 Unspecified cirrhosis of liver; R29.6 Repeated falls; F20.9 Schizophrenia, unspecified; F32.A Depression, unspecified; F41.9 Anxiety disorder, unspecified; Z20.822 Contact with and (suspected) exposure to COVID-19; K21.9 Gastro-esophageal reflux disease without esophagitis; G62.9 Polyneuropathy, unspecified; F17.210 Nicotine dependence, cigarettes, uncomplicated; I10 Essential (primary) hypertension; G89.4 Chronic pain syndrome; S62.607A Fracture of unspecified phalanx of left little finger, initial encounter for closed fracture; F10.129 Alcohol abuse with intoxication, unspecified; Y90.5 Blood alcohol level of 100-119 mg/100 ml; Z79.899 Other long term (current) drug therapy; Y92.89 Other specified places as the place of occurrence of the external cause; Z68.29 Body mass index [BMI] 29.0-29.9, adult; Z90.49 Acquired absence of other specified parts of digestive tract
CPT/HCPCS: 36415; 70450; 71045; 73140; 80048; 80053; 80320; 81001; 82140; 83735; 84484; 85025; 86803; 87340; 93005; 93886; 93970; 93971; 97110; 97116; 97163; 97530; G0378; J7060